=== PATIENT | female | born 1980 | race Caucasian/White ===

== ENCOUNTER 2016-05-17 18:39 | Emergency (ER) | payer OTHER ==
[~2016-05-17 18:39] MED LIST: /DIVA12TA OR; FLEXERIL PO; KLON0.5T OR; LAMI25TA OR; VICO5TAB OR; ZOLO100T OR
--- NOTE | 2016-05-17 19:48 | EDDOCDS ---
Nurse's Notes [facility] Name: Shelly Pérez Age: 35 yrs Sex: Female : 1980 Arrival Date: 05/17/2016 Time: 18:39 Bed TR7 Private MD: Gaudencio Collier Diagnosis: Medical services not available in home-medication refill Presentation: 05/17 18:48 Presenting complaint: Patient states: Had appt with Dr. Collier. got cancelled he is out rs3 of town. they asked her to go to ER. Needs Effexor 150 mg bid, Xanax 2 mg tid, Vicodin 5/325 tid. Adult Sepsis Screening: The patient does not have new or worsening altered mentation. Patient's respiratory rate is less than 22. Systolic blood pressure is greater than 100. Patient has a qSOFA score of 0- Negative Sepsis Screen. Suicide/Homicide risk assessment- the patient denies having any suicidal and/or homicidal ideations and does not present with any other emotional, behavioral or mental health complaints. 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 Transition of care: patient was not received from another setting of care. 18:48 Acuity: URSULA Level 5 rs3 18:48 Method Of Arrival: Walkin/Carried/Asstd rs3 Triage Assessment: 18:53 General: Appears in no apparent distress. Pain: Location: back. 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 effexor 150mg twice a day 2. vicodin 5/325mg three times a day 3. Xanax 2 mg oral tab 3 times per day - PMHx: Depression; - PSHx: Tubal ligation; - Social history: Smoking status: Patient uses tobacco products, heavy tobacco smoker. No barriers to communication noted, The patient speaks fluent Slovak. - Family history: Not pertinent. - : The pt / caregiver states he / she is not on anticoagulants. Home medication list is obtained from the patient. - Exposure Risk Screening:: None identified. Screenin:45 Screening information is obtained from the patient. Fall risk: No risks identified. jo3 Assistance ADL's: requires no assistance with activities of daily living. Abuse/DV Screen: The patient / caregiver reports he/she is: not in a situation that causes fear, pain or injury. Nutritional screening: No deficits noted. Advance Directives: There is no active DNR order. home support is adequate. Assessment: 19:45 General: Appears in no apparent distress, Behavior is anxious, cooperative, pleasant. jo3 Neurological: No deficits noted. Cardiovascular: No deficits noted. Respiratory: Airway is patent Respiratory effort is even, unlabored. Derm: Skin is Skin is pink, warm & dry. Vital Signs: 18:42 BP 143 / 88; Pulse 119; Resp 16; Temp 97.5(O); Pulse Ox 98% on R/A; Weight 70.76 kg lr2 (R); Height 5 ft. 9 in. (175.26 cm) (R); Pain 6/10; 18:42 Body Mass Index 23.04 (70.76 kg, 175.26 cm) lr2 Vitals: 18:42 Log In Time: May 17, 2016 at 18:39. lr2 ED Course: 18:41 Patient visited by Dorys Cazares. lr2 18:41 Patient moved to Waiting lr2 18:42 Gaudencio Collier is Private Physician. lr2 18:42 Patient moved to Pre RCE lr2 18:51 Triage Initiated rs3 19:16 Patient moved to Triage 1 mdr 19:24 [facility] ke 19:24 Patient visited by Anmol Abdi FNP. ke 19:24 Patient visited by Anmol Abdi FNP. ke 19:35 Gaudencio Collier is Referral Physician. ke 19:45 The patient / caregiver is instructed regarding the plan of care and ED course. jo3 19:45 No IV's were initiated during this patient's visit. No procedures done that require jo3 assistance. 19:46 Patient moved to TR7 mdr Order Results: There are currently no results for this order. Outcome: 19:36 Discharge ordered by Provider. ke 19:45 Discharge Assessment: Patient awake, alert and oriented x 3. No cognitive and/or jo3 functional deficits noted. Patient verbalized understanding of disposition instructions. patient administered narcotics - no. The following High Risk Discharge criteria are identified: None. Discharged to home ambulatory, with friend. Condition: stable. Discharge instructions given to patient, Instructed on discharge instructions, follow up and referral plans. medication usage, Demonstrated understanding of instructions, medications, Pt was receptive of discharge instructions/ teaching. Prescriptions given X 3. No special radiology studies were completed. Property sent home with patient. 19:47 Patient left the ED. jo3 Signatures: Anmol Abdi, ENAMEL DIPPER ENAMEL DIPPER Lakisha StockRN RN jo3 Marly KumarRN RN rs3 Ulysses Spencer, MICHAEL VB NET DEVELOPER Dorys Srivastava lr2 Corrections: (The following items were deleted from the chart) 18:53 18:48 Presenting complaint: Patient states: Had appt with Dr. Collier. got cancelled he is rs3 out of town. they asked her to go to ER. Needs Effexor 150 mg bid, Xanax 0.25 tid, Vicodin 5/325 tid rs3 MTDD
--- NOTE | 2016-05-17 19:48 | EDDOCDS ---
Physician Documentation [facility] Name: Shelly Pérez Age: 35 yrs Sex: Female : 1980 Arrival Date: 05/17/2016 Time: 18:39 Bed TR7 Private MD: Gaudencio Collier Disposition: 05/17/16 19:36 Discharged to Home/Self Care. Impression: Medical services not available in home - medication refill. - Condition is Stable. - Discharge Instructions: Medicine Refill at the Emergency Department. - Prescriptions for Xanax 2 mg Oral tablet - take 1 tablet by ORAL route 3 times per day; 15 tablet. [place] 5- 325 mg Oral Tablet - take 1 tablet by ORAL route 3 times per day As needed MDD: 4 tabs; 15 tablet. venlafaxine 75 mg Oral Tablet - take 2 tablet by ORAL route 2 times per day with food; 20 tablet. - Medication Reconciliation, Local Pharmacy Hours form. - Follow up: Gaudencio Collier; When: 4 - 5 days; Reason: Continuance of care. - Problem is an acute exacerbation. - Symptoms are unchanged. Historical: - Allergies: no known allergies; - Home Meds: 1. effexor 150mg twice a day 2. vicodin 5/325mg three times a day 3. Xanax 2 mg oral tab 3 times per day - PMHx: Depression; - PSHx: Tubal ligation; - Social history: Smoking status: Patient uses tobacco products, heavy tobacco smoker. No barriers to communication noted, The patient speaks fluent Argentine. - Family history: Not pertinent. - : The pt / caregiver states he / she is not on anticoagulants. Home medication list is obtained from the patient. - Exposure Risk Screening:: None identified. 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 9 in. (175.26 cm) (R); Pain 6/10; 18:42 Body Mass Index 23.04 (70.76 kg, 175.26 cm) lr2 Signatures: Anmol Abdi, OUTREACH COUNSELOR OUTREACH COUNSELOR Lakisha Stock,RN RN jo3 Marly Kumar,RN RN rs3 MTDD
--- NOTE | 2016-05-19 20:48 | EDDOCDS ---
Nurse's Notes [facility] Name: Shelly Pérez Age: 35 yrs Sex: Female : 1980 Arrival Date: 05/17/2016 Time: 18:39 Bed TR7 Private MD: Gaudencio Collier Diagnosis: Medical services not available in home-medication refill Presentation: 05/17 18:48 Presenting complaint: Patient states: Had appt with Dr. Collier. got cancelled he is out rs3 of town. they asked her to go to ER. Needs Effexor 150 mg bid, Xanax 2 mg tid, Vicodin 5/325 tid. Adult Sepsis Screening: The patient does not have new or worsening altered mentation. Patient's respiratory rate is less than 22. Systolic blood pressure is greater than 100. Patient has a qSOFA score of 0- Negative Sepsis Screen. Suicide/Homicide risk assessment- the patient denies having any suicidal and/or homicidal ideations and does not present with any other emotional, behavioral or mental health complaints. Status: Patient is not a manager of environmental services or dependent. Transition of care: patient was not received from another setting of care. 18:48 Acuity: URSULA Level 5 rs3 18:48 Method Of Arrival: Walkin/Carried/Asstd rs3 Triage Assessment: 18:53 General: Appears in no apparent distress. Pain: Location: back. 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 effexor 150mg twice a day 2. vicodin 5/325mg three times a day 3. Xanax 2 mg oral tab 3 times per day - PMHx: Depression; - PSHx: Tubal ligation; - Social history: Smoking status: Patient uses tobacco products, heavy tobacco smoker. No barriers to communication noted, The patient speaks fluent Frisian. - Family history: Not pertinent. - : The pt / caregiver states he / she is not on anticoagulants. Home medication list is obtained from the patient. - Exposure Risk Screening:: None identified. Screenin:45 Screening information is obtained from the patient. Fall risk: No risks identified. jo3 Assistance ADL's: requires no assistance with activities of daily living. Abuse/DV Screen: The patient / caregiver reports he/she is: not in a situation that causes fear, pain or injury. Nutritional screening: No deficits noted. Advance Directives: There is no active DNR order. home support is adequate. Assessment: 19:45 General: Appears in no apparent distress, Behavior is anxious, cooperative, pleasant. jo3 Neurological: No deficits noted. Cardiovascular: No deficits noted. Respiratory: Airway is patent Respiratory effort is even, unlabored. Derm: Skin is Skin is pink, warm & dry. Vital Signs: 18:42 BP 143 / 88; Pulse 119; Resp 16; Temp 97.5(O); Pulse Ox 98% on R/A; Weight 70.76 kg lr2 (R); Height 5 ft. 9 in. (175.26 cm) (R); Pain 6/10; 18:42 Body Mass Index 23.04 (70.76 kg, 175.26 cm) lr2 Vitals: 18:42 Log In Time: May 17, 2016 at 18:39. lr2 ED Course: 18:41 Patient visited by Dorys Cazares. lr2 18:41 Patient moved to Waiting lr2 18:42 Gaudencio Collier is Private Physician. lr2 18:42 Patient moved to Pre RCE lr2 18:51 Triage Initiated rs3 19:16 Patient moved to Triage 1 mdr 19:24 [facility] ke 19:24 Patient visited by Anmol Abdi FNP. ke 19:24 Patient visited by Anmol Abdi FNP. ke 19:35 Gaudencio Collier is Referral Physician. ke 19:45 The patient / caregiver is instructed regarding the plan of care and ED course. jo3 19:45 No IV's were initiated during this patient's visit. No procedures done that require jo3 assistance. 19:46 Patient moved to TR7 mdr 19:50 Patient name changed from Shelly\S\\S\West\S\ to Shelly\S\ \S\West. EDMS 19:51 [facility] Payment Agreement was scanned into [employer] and attached to record. ks16 05/18 12:42 T-Sheet-- Draft Copy was scanned into [employer] and attached to record. gb Order Results: There are currently no results for this order. Outcome: 05/17 19:36 Discharge ordered by Provider. thaddeus 19:45 Discharge Assessment: Patient awake, alert and oriented x 3. No cognitive and/or jo3 functional deficits noted. Patient verbalized understanding of disposition instructions. patient administered narcotics - no. The following High Risk Discharge criteria are identified: None. Discharged to home ambulatory, with friend. Condition: stable. Discharge instructions given to patient, Instructed on discharge instructions, follow up and referral plans. medication usage, Demonstrated understanding of instructions, medications, Pt was receptive of discharge instructions/ teaching. Prescriptions given X 3. No special radiology studies were completed. Property sent home with patient. 19:47 Patient left the ED. jo3 Signatures: Dispatcher [employer] EDMS Sis Tamayo, Reg Reg gb Amnol Abdi, FAGOT HEATER HELPER FAGOT HEATER HELPER Lakisha StockRN RN jo3 Marly KumarRN RN rs3 Ulysses Spencer, CLIENT PARTNER CLIENT PARTNER Yanet Puente, Reg Reg ks16 Dorys Cazares lr2 Corrections: (The following items were deleted from the chart) 18:53 18:48 Presenting complaint: Patient states: Had appt with Dr. Collier. got cancelled he is rs3 out of town. they asked her to go to ER. Needs Effexor 150 mg bid, Xanax 0.25 tid, Vicodin 5/325 tid rs3 Chart Complete MTDD
--- NOTE | 2016-05-19 20:48 | EDDOCDS ---
Physician Documentation [facility] Name: Shelly Pérez Age: 35 yrs Sex: Female : 1980 Arrival Date: 05/17/2016 Time: 18:39 Bed TR7 Private MD: Gaudencio Collier Disposition: 05/17/16 19:36 Discharged to Home/Self Care. Impression: Medical services not available in home - medication refill. - Condition is Stable. - Discharge Instructions: Medicine Refill at the Emergency Department. - Prescriptions for Xanax 2 mg Oral tablet - take 1 tablet by ORAL route 3 times per day; 15 tablet. [place] 5- 325 mg Oral Tablet - take 1 tablet by ORAL route 3 times per day As needed MDD: 4 tabs; 15 tablet. venlafaxine 75 mg Oral Tablet - take 2 tablet by ORAL route 2 times per day with food; 20 tablet. - Medication Reconciliation, Local Pharmacy Hours form. - Follow up: Gaudencio Collier; When: 4 - 5 days; Reason: Continuance of care. - Problem is an acute exacerbation. - Symptoms are unchanged. Historical: - Allergies: no known allergies; - Home Meds: 1. effexor 150mg twice a day 2. vicodin 5/325mg three times a day 3. Xanax 2 mg oral tab 3 times per day - PMHx: Depression; - PSHx: Tubal ligation; - Social history: Smoking status: Patient uses tobacco products, heavy tobacco smoker. No barriers to communication noted, The patient speaks fluent Gibraltarian. - Family history: Not pertinent. - : The pt / caregiver states he / she is not on anticoagulants. Home medication list is obtained from the patient. - Exposure Risk Screening:: None identified. 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 9 in. (175.26 cm) (R); Pain 6/10; 18:42 Body Mass Index 23.04 (70.76 kg, 175.26 cm) lr2 MDM: 19:51 [facility] Payment Agreement was scanned into [employer] and attached to record. ks16 19:51 Financial registration complete. 05/18 12:42 T-Sheet-- Draft Copy was scanned into [employer] and attached to record. gb Signatures: Sis Tamayo, Reg Reg gb Anmol Abdi, CAT AND DOG BATHER CAT AND DOG BATHER Lakisha Stock RN RN jo3 Marly Kumar RN RN rs3 Yanet Woodard, Reg Reg ks16 The chart was reviewed and I authenticate all verbal orders and agree with the evaluation and treatment provided.Attachments: 05/17 19:51 [facility] Payment Agreement 05/18 12:42 T-Sheet-- Draft Copy gb Chart Complete MTDD
--- NOTE | 2016-05-19 20:48 | EDDOCDS ---
Physician Documentation [facility] Name: Shelly Pérez Age: 35 yrs Sex: Female : 1980 Arrival Date: 05/17/2016 Time: 18:39 Bed TR7 Private MD: Gaudencio Collier Disposition: 05/17/16 19:36 Discharged to Home/Self Care. Impression: Medical services not available in home - medication refill. - Condition is Stable. - Discharge Instructions: Medicine Refill at the Emergency Department. - Prescriptions for Xanax 2 mg Oral tablet - take 1 tablet by ORAL route 3 times per day; 15 tablet. [place] 5- 325 mg Oral Tablet - take 1 tablet by ORAL route 3 times per day As needed MDD: 4 tabs; 15 tablet. venlafaxine 75 mg Oral Tablet - take 2 tablet by ORAL route 2 times per day with food; 20 tablet. - Medication Reconciliation, Local Pharmacy Hours form. - Follow up: Gaudencio Collier; When: 4 - 5 days; Reason: Continuance of care. - Problem is an acute exacerbation. - Symptoms are unchanged. Historical: - Allergies: no known allergies; - Home Meds: 1. effexor 150mg twice a day 2. vicodin 5/325mg three times a day 3. Xanax 2 mg oral tab 3 times per day - PMHx: Depression; - PSHx: Tubal ligation; - Social history: Smoking status: Patient uses tobacco products, heavy tobacco smoker. No barriers to communication noted, The patient speaks fluent Niuean. - Family history: Not pertinent. - : The pt / caregiver states he / she is not on anticoagulants. Home medication list is obtained from the patient. - Exposure Risk Screening:: None identified. 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 9 in. (175.26 cm) (R); Pain 6/10; 18:42 Body Mass Index 23.04 (70.76 kg, 175.26 cm) lr2 MDM: 19:51 [facility] Payment Agreement was scanned into [email or web address] and attached to record. ks16 19:51 Financial registration complete. 05/18 12:42 T-Sheet-- Draft Copy was scanned into [email or web address] and attached to record. gb Signatures: Sis Tamayo, Reg Reg gb Anmol Abdi, VEGETABLE II FARMWORKER VEGETABLE II FARMWORKER Lakisha Stock RN RN jo3 Marly Kumar RN RN rs3 Yanet Woodard, Reg Reg ks16 The chart was reviewed and I authenticate all verbal orders and agree with the evaluation and treatment provided.Attachments: 05/17 19:51 [facility] Payment Agreement 05/18 12:42 T-Sheet-- Draft Copy gb Chart Complete MTDD
== END 2016-05-17 19:47 | disposition home or self-care (01) ==
LOC: M ED 18:39
DX: Z76.0 Encounter for issue of repeat prescription (principal); F32.9 Major depressive disorder, single episode, unspecified; F17.210 Nicotine dependence, cigarettes, uncomplicated; Z79.899 Other long term (current) drug therapy

== ENCOUNTER 2016-08-04 21:19 | Emergency (ER) | payer OTHER ==
[~2016-08-04] VITALS: Ht 175.3 cm; Wt 90.7 kg
[2016-08-04 21:20] VITALS: BP 159/95
[2016-08-04] MEDS ORDERED: XANA2TAB2 PO ×2 (21:36→23:11)
[2016-08-04] MEDS ORDERED: EFFE150C PO (21:36)
[2016-08-04] MEDS ORDERED: LORazepam 2 MG/ML VIAL (J2060) IM STA (23:08)
[2016-08-04] MEDS ORDERED: ZOFR4TAB3 PO (23:11)
[2016-08-04] MEDS ORDERED: ONDANSETRON 4 MG ORAL DISINTEGRATING TAB (S0181) PO ONE (23:15)
== END 2016-08-05 00:18 | disposition home or self-care (01) ==
LOC: M ED 22:25
DX: F43.9 Reaction to severe stress, unspecified (principal); F19.239 Other psychoactive substance dependence with withdrawal, unspecified
CPT/HCPCS: 96372; 99281; J2060

== ENCOUNTER 2016-12-26 19:26 | Emergency (ER) | payer OTHER ==
[~2016-12-26] VITALS: Ht 175.3 cm; Wt 95.5 kg
[~2016-12-26 19:26] MED LIST changes: +EFFE150C PO; +XANA2TAB2 PO; +ZOFR4TAB3 PO
[2016-12-26] MEDS ORDERED: TRIA37.53 PO (19:40)
[2016-12-26] MEDS ORDERED: cloNIDine 0.2 MG TAB PO ONE (20:15)
[2016-12-26 20:28] VITALS: BP 114/60
[2016-12-26 20:45] VITALS: BP 112/54
[2016-12-26] MEDS ORDERED: CLONI1TA PO (21:19)
== END 2016-12-26 21:37 | disposition home or self-care (01) ==
LOC: M ED 19:26
DX: F31.9 Bipolar disorder, unspecified (principal); F19.10 Other psychoactive substance abuse, uncomplicated; F17.200 Nicotine dependence, unspecified, uncomplicated; F11.23 Opioid dependence with withdrawal; F10.10 Alcohol abuse, uncomplicated; Z79.899 Other long term (current) drug therapy

== ENCOUNTER → 2016-12-27 | Outpatient (CLI) | payer MEDICAID ==
[~2016-12-27] MED LIST changes: +CLONI1TA PO; +TRIA37.53 PO
== END ==
LOC: M OUTALCOH 07:59
PROVIDERS: ATTEND Psychiatry & Neurology Psychiatry
DX: F11.20 Opioid dependence, uncomplicated (principal)

== ENCOUNTER → 2017-03-14 | Outpatient (CLI) | payer OTHER ==
--- NOTE | 2017-03-14 17:03 | REP ---
MRI brain without contrast: History: Headache and diplopia. . Comparison study: Comparison brain CT study December 11, 2012. Technique: Axial and sagittal imaging planes are utilized for T1 and T2-weighted scans. Sequences include spin-echo, fast spin echo, FLAIR, and diffusion weighted sequences. MRI findings: No bony calvarial lesion is seen. Craniocervical junction and upper cervical cord are normal in appearance. There is no MR evidence of significant paranasal sinus disease. No intraorbital abnormality is seen. There are is a small zone of low T1, high T2 signal intensity in the anterior limb of the internal capsule on the right. This corresponds to an area of low density on CT study from 2013. It is unchanged. It could be a a small lacunar infarct or more likely, dilated perivascular spaces, which is a normal variant. In any event there is no change or progression. The lateral, third, and fourth ventricles are normal in size and position. Rojas-white differentiation pattern is otherwise intact above and below the tentorium. There is no evidence of intracranial hemorrhage. No mass, infarction, extra-axial fluid collection or midline shift is seen. No abnormal white matter lesion is seen. Impression: Tiny old lacunar infarct versus dilated perivascular spaces right basal ganglia unchanged from 2013 CT study. Otherwise negative noncontrast brain MRI study. Signed by Armando Rahman MD 03/14/2017 04:54 P
== END ==
LOC: M RAD 15:57
PROVIDERS: ATTEND Family Medicine
DX: R51 Headache (principal)

== ENCOUNTER 2017-03-23 23:19 | Emergency (ER) | payer OTHER ==
[2017-03-24] MEDS: NS 1,000 ML IV (00:31)
[2017-03-24 00:32] LABS: BASO # 0.1 10^3/uL (0.0-0.2); BASO % 0.6 % (0.0-1.0); EOS # 0.3 10^3/uL (0.0-0.50); EOS % 2.9 % (0.0-3.0); IMMATURE GRANULOCYTE % 0.4 % (0-0); LYMPH # 2.9 10^3/uL (1.5-4.5); LYMPH % 28.8 % (24.0-44.0); MEAN CORPUSCULAR HEMOGLOBIN 31.2 pg (27.0-33.0); MEAN CORPUSCULAR HGB CONC 33.8 g/dl (32.0-36.5); MEAN CORPUSCULAR VOLUME 92.5 fl (80.0-96.0); MONO # 0.7 10^3/uL (0.0-0.8); MONO % 6.6 % (0.0-5.0); NEUTROPHILS # 6.2 10^3/uL (1.8-7.7); NEUTROPHILS % 60.7 % (36.0-66.0); PLATELET COUNT, AUTOMATED 227 10^3/uL (150-450); RED CELL DISTRIBUTION WIDTH 13.3 % (11.5-14.5); WHITE BLOOD COUNT 10.1 10^3/uL (4.0-10.0)
[2017-03-24 01:02] LABS: ALBUMIN 3.1 GM/DL (3.2-5.2); ALBUMIN/GLOBULIN RATIO 0.97 (1.00-1.93); ALKALINE PHOSPHATASE 78 U/L (45-117); ALT/SGPT 22 U/L (12-78); ANION GAP 5 MEQ/L (8-16); AST/SGOT 24 U/L (7-37); BILIRUBIN,TOTAL 0.2 MG/DL (0.2-1.0); BLOOD UREA NITROGEN 6 MG/DL (7-18); CALCIUM LEVEL 8.4 MG/DL (8.5-10.1); CARBON DIOXIDE LEVEL 33 MEQ/L (21-32); CHLORIDE LEVEL 105 MEQ/L (98-107); CREATININE FOR GFR 0.69 MG/DL (0.55-1.02); GLOMERULAR FILTRATION RATE > 60.0 (>60); GLUCOSE, FASTING 86 MG/DL (70-105); POTASSIUM SERUM 3.7 MEQ/L (3.5-5.1); SODIUM LEVEL 143 MEQ/L (136-145); TOTAL PROTEIN 6.3 GM/DL (6.4-8.2)
[2017-03-24] MEDS ORDERED: ISOVUE-370 76% 100ML VIAL (Q9967) As Ordered (01:06)
[2017-03-24] MEDS: KETOROLAC 30 MG/ML VIAL (J1885) IV (01:34)
[2017-03-24] MEDS: hydrOXYzine 50 MG TAB PO (02:07)
== END 2017-03-24 02:13 | disposition home or self-care (01) ==
LOC: M ED 03-24 02:13
DX: M54.5 Low back pain (principal); M54.2 Cervicalgia; G89.29 Other chronic pain; G47.00 Insomnia, unspecified; Z72.0 Tobacco use; Y04.0XXA Assault by unarmed brawl or fight, initial encounter; Y92.099 Unspecified place in other non-institutional residence as the place of occurrence of the external cause; Y93.89 Activity, other specified; Y99.9 Unspecified external cause status
CPT/HCPCS: Q9967

== ENCOUNTER 2017-07-30 17:58 | Emergency (ER) | payer OTHER ==
[2017-07-30 17:22] LABS: HEMATOCRIT 46.6 % (36.0-47.0); HEMOGLOBIN 16.4 g/dl (12.0-15.5); MEAN CORPUSCULAR HEMOGLOBIN 31.2 pg (27.0-33.0); MEAN CORPUSCULAR HGB CONC 35.2 g/dl (32.0-36.5); MEAN CORPUSCULAR VOLUME 88.8 fl (80.0-96.0); PLATELET COUNT, AUTOMATED 276 10^3/uL (150-450); RED BLOOD COUNT 5.25 10^6/uL (4.00-5.40); RED CELL DISTRIBUTION WIDTH 12.3 % (11.5-14.5); WHITE BLOOD COUNT 15.6 10^3/uL (4.0-10.0)
[2017-07-30 17:38] LABS: CONTROL LINE HCG INT CTR LINE PRESENT; HCG, SERUM QUALITATIVE NEGATIVE (NEGATIVE)
[2017-07-30 17:43] LABS: AMPHETAMINES LEVEL URINE NEGATIVE (NEGATIVE); BARBITURATES URINE NEGATIVE (NEGATIVE); BENZODIAZEPINES URINE POSITIVE (NEGATIVE); CANNABINOIDS URINE NEGATIVE (NEGATIVE); COCAINE METABOLITE URINE NEGATIVE (NEGATIVE); METHADONE URINE NEGATIVE (NEGATIVE); OPIATES URINE POSITIVE (NEGATIVE); PHENCYCLIDINE URINE NEGATIVE (NEGATIVE)
[2017-07-30 17:52] LABS: ALT/SGPT 21 U/L (12-78); BILIRUBIN,TOTAL 0.6 MG/DL (0.2-1.0); BLOOD UREA NITROGEN 9 MG/DL (7-18); POTASSIUM SERUM 3.7 MEQ/L (3.5-5.1)
[2017-07-30 17:53] LABS: ALBUMIN 4.2 GM/DL (3.2-5.2); ALBUMIN/GLOBULIN RATIO 0.98 (1.00-1.93); ALKALINE PHOSPHATASE 71 U/L (45-117); ANION GAP 6 MEQ/L (8-16); AST/SGOT 22 U/L (7-37); BILIRUBIN,DIRECT 0.2 MG/DL (0.0-0.2); CALCIUM LEVEL 9.5 MG/DL (8.5-10.1); CARBON DIOXIDE LEVEL 29 MEQ/L (21-32); CHLORIDE LEVEL 106 MEQ/L (98-107); CREATININE FOR GFR 0.94 MG/DL (0.55-1.30); ETHYL ALCOHOL (ETHANOL) 0.004 % (0.000-0.010); GLOMERULAR FILTRATION RATE > 60.0 (>60); GLUCOSE, FASTING 105 MG/DL (70-100); SALICYLATE LEVEL 4.3 MG/DL (5.0-30.0); SODIUM LEVEL 141 MEQ/L (136-145); TOTAL PROTEIN 8.5 GM/DL (6.4-8.2)
[2017-07-30 17:56] LABS: ACETAMINOPHEN LEVEL < 2.0 UG/ML (10.0-30.0)
[2017-07-30] MEDS: ALPRAZolam 0.5 MG TAB PO (18:28)
[2017-07-30] MEDS: ONDANSETRON 4 MG ORAL DISINTEGRATING TAB (Q0162 PER 1MG) PO (18:28)
== END 2017-07-30 19:35 | disposition home or self-care (01) ==
LOC: M ED 17:58
DX: F41.1 Generalized anxiety disorder (principal); F33.9 Major depressive disorder, recurrent, unspecified; Z79.899 Other long term (current) drug therapy; Z88.5 Allergy status to narcotic agent; F17.210 Nicotine dependence, cigarettes, uncomplicated
CPT/HCPCS: Q0162

== ENCOUNTER 2017-10-31 22:51 | Emergency (ER) | payer OTHER ==
[2017-11-01] MEDS: LORazepam 2 MG/ML VIAL (J2060) IV (00:24)
[2017-11-01] MEDS: ONDANSETRON 4MG/2ML VIAL (J2405) IV (00:30)
[2017-11-01] MEDS: cloNIDine 0.1 MG TAB PO (00:30)
[2017-11-01] MEDS: NS 1,000 ML IV (00:30)
[2017-11-01 00:56] LABS: BASO # 0.1 10^3/uL (0.0-0.2); BASO % 0.4 % (0.0-1.0); EOS # 0.1 10^3/uL (0.0-0.50); EOS % 0.4 % (0.0-3.0); HEMATOCRIT 49.5 % (36.0-47.0); HEMOGLOBIN 17.6 g/dl (12.0-15.5); IMMATURE GRANULOCYTE % 0.4 % (0-3.0); LYMPH # 3.5 10^3/uL (1.5-4.5); LYMPH % 18.4 % (24.0-44.0); MEAN CORPUSCULAR HEMOGLOBIN 31.9 pg (27.0-33.0); MEAN CORPUSCULAR HGB CONC 35.6 g/dl (32.0-36.5); MEAN CORPUSCULAR VOLUME 89.7 fl (80.0-96.0); MONO # 0.9 10^3/uL (0.0-0.8); MONO % 4.9 % (0.0-5.0); NEUTROPHILS # 14.4 10^3/uL (1.8-7.7); NEUTROPHILS % 75.5 % (36.0-66.0); PLATELET COUNT, AUTOMATED 286 10^3/uL (150-450); RED BLOOD COUNT 5.52 10^6/uL (4.00-5.40); RED CELL DISTRIBUTION WIDTH 13.4 % (11.5-14.5); WHITE BLOOD COUNT 19.1 10^3/uL (4.0-10.0)
[2017-11-01 01:15] LABS: AMPHETAMINES LEVEL URINE NEGATIVE (NEGATIVE); BARBITURATES URINE NEGATIVE (NEGATIVE); BENZODIAZEPINES URINE POSITIVE (NEGATIVE); CANNABINOIDS URINE POSITIVE (NEGATIVE); COCAINE METABOLITE URINE NEGATIVE (NEGATIVE); METHADONE URINE NEGATIVE (NEGATIVE); OPIATES URINE NEGATIVE (NEGATIVE); PHENCYCLIDINE URINE NEGATIVE (NEGATIVE)
[2017-11-01 01:51] LABS: ALBUMIN 3.9 GM/DL (3.2-5.2); ALBUMIN/GLOBULIN RATIO 0.95 (1.00-1.93); ALKALINE PHOSPHATASE 73 U/L (45-117); ALT/SGPT 18 U/L (12-78); ANION GAP 9 MEQ/L (8-16); AST/SGOT 13 U/L (7-37); BILIRUBIN,DIRECT 0.2 MG/DL (0.0-0.2); BILIRUBIN,TOTAL 0.7 MG/DL (0.2-1.0); BLOOD UREA NITROGEN 7 MG/DL (7-18); CALCIUM LEVEL 9.1 MG/DL (8.5-10.1); CARBON DIOXIDE LEVEL 28 MEQ/L (21-32); CHLORIDE LEVEL 105 MEQ/L (98-107); CREATININE FOR GFR 0.83 MG/DL (0.55-1.30); GLOMERULAR FILTRATION RATE > 60.0 (>60); GLUCOSE, FASTING 107 MG/DL (70-100); LIPASE 64 U/L (73-393); POTASSIUM SERUM 3.3 MEQ/L (3.5-5.1); SODIUM LEVEL 142 MEQ/L (136-145)
== END 2017-11-01 03:06 | disposition home or self-care (01) ==
LOC: M ED 22:51
DX: F13.239 Sedative, hypnotic or anxiolytic dependence with withdrawal, unspecified (principal); F11.23 Opioid dependence with withdrawal; F41.1 Generalized anxiety disorder; G89.29 Other chronic pain; Z72.0 Tobacco use; Z79.899 Other long term (current) drug therapy; Z88.5 Allergy status to narcotic agent
CPT/HCPCS: J2405

== ENCOUNTER 2017-12-19 16:30 | Emergency (ER) | payer OTHER, MEDICAID ==
[2017-12-19 18:15] LABS: BASO % 0.4 % (0.0-1.0); EOS % 0.1 % (0.0-3.0); HEMATOCRIT 48.2 % (36.0-47.0); HEMOGLOBIN 16.6 g/dl (12.0-15.5); IMMATURE GRANULOCYTE % 0.4 % (0-3.0); LYMPH # 1.7 10^3/uL (1.5-4.5); LYMPH % 16.3 % (24.0-44.0); MEAN CORPUSCULAR HGB CONC 34.4 g/dl (32.0-36.5); MEAN CORPUSCULAR VOLUME 89.9 fl (80.0-96.0); MONO # 0.5 10^3/uL (0.0-0.8); NEUTROPHILS # 7.9 10^3/uL (1.8-7.7); NEUTROPHILS % 77.8 % (36.0-66.0); PLATELET COUNT, AUTOMATED 221 10^3/uL (150-450); RED BLOOD COUNT 5.36 10^6/uL (4.00-5.40); RED CELL DISTRIBUTION WIDTH 12.5 % (11.5-14.5); WHITE BLOOD COUNT 10.2 10^3/uL (4.0-10.0)
[2017-12-19 18:37] LABS: CONTROL LINE HCG INT CTR LINE PRESENT; HCG, SERUM QUALITATIVE NEGATIVE (NEGATIVE)
[2017-12-19 18:51] LABS: KETONE, URINE AUTO RFX TRACE mg/dL (NEGATIVE); NITRITE, URINE AUTO RFX NEGATIVE (NEGATIVE); RBC, URINE AUTO RFX 2 /HPF (0-3); SPECIFIC GRAVITY UR AUTO RFX 1.011 (1.002-1.035); SQUAM EPITHELIAL CELL UR AURFX 13 /HPF (0-6); WBC, URINE AUTO RFX 6 /HPF (0-3)
[2017-12-19] MEDS: NS 1,000 ML IV (19:18)
[2017-12-19] MEDS: ONDANSETRON 4MG/2ML VIAL (J2405) IV (19:18)
[2017-12-19 19:21] LABS: ALBUMIN 4.4 GM/DL (3.2-5.2); ALBUMIN/GLOBULIN RATIO 1.02 (1.00-1.93); ALKALINE PHOSPHATASE 71 U/L (45-117); ALT/SGPT 20 U/L (12-78); ANION GAP 10 MEQ/L (8-16); AST/SGOT 18 U/L (7-37); BILIRUBIN,DIRECT 0.2 MG/DL (0.0-0.2); BILIRUBIN,TOTAL 0.7 MG/DL (0.2-1.0); BLOOD UREA NITROGEN 8 MG/DL (7-18); CALCIUM LEVEL 9.9 MG/DL (8.5-10.1); CARBON DIOXIDE LEVEL 25 MEQ/L (21-32); CHLORIDE LEVEL 106 MEQ/L (98-107); CREATININE FOR GFR 0.79 MG/DL (0.55-1.30); GLOMERULAR FILTRATION RATE > 60.0 (>60); GLUCOSE, FASTING 120 MG/DL (70-100); LIPASE 77 U/L (73-393); POTASSIUM SERUM 3.6 MEQ/L (3.5-5.1); SODIUM LEVEL 141 MEQ/L (136-145); TOTAL PROTEIN 8.7 GM/DL (6.4-8.2)
[2017-12-19 19:22] LABS: LEUKOCYTE ESTERASE UR AUTO RFX 1+ (NEGATIVE)
[2017-12-19] MEDS: hydrOXYzine 50 MG TAB PO (19:45)
[2017-12-19 21:28] LABS: AMPHETAMINES LEVEL URINE NEGATIVE (NEGATIVE); BARBITURATES URINE NEGATIVE (NEGATIVE); BENZODIAZEPINES URINE NEGATIVE (NEGATIVE); CANNABINOIDS URINE NEGATIVE (NEGATIVE); COCAINE METABOLITE URINE NEGATIVE (NEGATIVE); METHADONE URINE NEGATIVE (NEGATIVE); OPIATES URINE NEGATIVE (NEGATIVE); PHENCYCLIDINE URINE NEGATIVE (NEGATIVE)
== END 2017-12-19 22:18 | disposition home or self-care (01) ==
LOC: M ED 16:30
DX: N39.0 Urinary tract infection, site not specified (principal); R11.2 Nausea with vomiting, unspecified; R19.7 Diarrhea, unspecified; F41.9 Anxiety disorder, unspecified; I10 Essential (primary) hypertension; R56.9 Unspecified convulsions; F19.10 Other psychoactive substance abuse, uncomplicated; F32.9 Major depressive disorder, single episode, unspecified; Z86.73 Personal history of transient ischemic attack (TIA), and cerebral infarction without residual deficits; Z88.5 Allergy status to narcotic agent; F17.210 Nicotine dependence, cigarettes, uncomplicated
CPT/HCPCS: J2405

== ENCOUNTER 2018-01-06 15:13 | Inpatient (IN) | payer MEDICAID, OTHER ==
[2018-01-06 15:55] LABS: HEMOGLOBIN 13.4 g/dl (12.0-15.5); MEAN CORPUSCULAR HEMOGLOBIN 31.5 pg (27.0-33.0); MEAN CORPUSCULAR HGB CONC 33.5 g/dl (32.0-36.5); MEAN CORPUSCULAR VOLUME 94.1 fl (80.0-96.0); PLATELET COUNT, AUTOMATED 203 10^3/uL (150-450); RED BLOOD COUNT 4.25 10^6/uL (4.00-5.40); RED CELL DISTRIBUTION WIDTH 13.1 % (11.5-14.5); WHITE BLOOD COUNT 8.4 10^3/uL (4.0-10.0)
[2018-01-06 16:15] LABS: AMPHETAMINES LEVEL URINE NEGATIVE (NEGATIVE); BARBITURATES URINE NEGATIVE (NEGATIVE); BENZODIAZEPINES URINE POSITIVE (NEGATIVE); CANNABINOIDS URINE NEGATIVE (NEGATIVE); COCAINE METABOLITE URINE NEGATIVE (NEGATIVE); METHADONE URINE NEGATIVE (NEGATIVE); OPIATES URINE NEGATIVE (NEGATIVE); PHENCYCLIDINE URINE NEGATIVE (NEGATIVE)
[2018-01-06 16:24] LABS: CONTROL LINE HCG INT CTR LINE PRESENT; HCG, SERUM QUALITATIVE NEGATIVE (NEGATIVE)
[2018-01-06 16:29] LABS: ACETAMINOPHEN LEVEL < 2.0 UG/ML (10.0-30.0); ALBUMIN 3.5 GM/DL (3.2-5.2); ALBUMIN/GLOBULIN RATIO 1.06 (1.00-1.93); ALKALINE PHOSPHATASE 97 U/L (45-117); ALT/SGPT 26 U/L (12-78); ANION GAP 8 MEQ/L (8-16); AST/SGOT 25 U/L (7-37); BILIRUBIN,DIRECT < 0.1 MG/DL (0.0-0.2); BILIRUBIN,TOTAL 0.2 MG/DL (0.2-1.0); BLOOD UREA NITROGEN 9 MG/DL (7-18); CALCIUM LEVEL 8.4 MG/DL (8.5-10.1); CARBON DIOXIDE LEVEL 28 MEQ/L (21-32); CHLORIDE LEVEL 108 MEQ/L (98-107); ETHYL ALCOHOL (ETHANOL) < 0.003 % (0.000-0.010); GLOMERULAR FILTRATION RATE > 60.0 (>60); GLUCOSE, FASTING 108 MG/DL (70-100); POTASSIUM SERUM 3.4 MEQ/L (3.5-5.1); SALICYLATE LEVEL 3.5 MG/DL (5.0-30.0); SODIUM LEVEL 144 MEQ/L (136-145); TOTAL PROTEIN 6.8 GM/DL (6.4-8.2)
[2018-01-06] MEDS: NICOTINE 21MG/24HR 1 EA TRANSDERMAL TD (17:00)
[2018-01-06] MEDS ORDERED: MOM 30ML SUSPENSION UDC PO (19:00)
[2018-01-06] MEDS: traZODone 50 MG TAB PO (23:23)
[2018-01-07] MEDS ORDERED: IBUPROFEN 600 MG TAB PO (10:00)
[2018-01-07] MEDS: LIDOCAINE 5% (LIDODERM) PATCH TD (10:23)
[2018-01-07] MEDS: BUPRENORPHINE/NALOXONE 8-2MG SUBLINGUAL TABLET(SUBOXONE) SL ×2 (12:24→20:36)
[2018-01-07] MEDS: FLUoxetine 10 MG CAP PO (12:24)
[2018-01-07] MEDS: AMOXICILLIN 500 MG CAP PO ×2 (13:37→21:34)
[2018-01-07] MEDS: ONDANSETRON 4 MG ORAL DISINTEGRATING TAB (Q0162 PER 1MG) SL (18:58)
[2018-01-07] MEDS: QUEtiapine FUMARATE 50 MG TAB PO (20:36)
[2018-01-07] MEDS: **NOTE PATIENT COMMENT** MISC XX (20:37)
[2018-01-08] MEDS: AMOXICILLIN 500 MG CAP PO ×3 (06:00→20:18)
[2018-01-08 08:08] LABS: ANION GAP 6 MEQ/L (8-16); BLOOD UREA NITROGEN 6 MG/DL (7-18); CALCIUM LEVEL 8.6 MG/DL (8.5-10.1); CARBON DIOXIDE LEVEL 28 MEQ/L (21-32); CHLORIDE LEVEL 109 MEQ/L (98-107); CREATININE FOR GFR 0.69 MG/DL (0.55-1.30); GLOMERULAR FILTRATION RATE > 60.0 (>60); GLUCOSE, FASTING 141 MG/DL (70-100); POTASSIUM SERUM 4.4 MEQ/L (3.5-5.1); SODIUM LEVEL 143 MEQ/L (136-145)
[2018-01-08] MEDS: FLUoxetine 10 MG CAP PO (08:39)
[2018-01-08] MEDS: BUPRENORPHINE/NALOXONE 8-2MG SUBLINGUAL TABLET(SUBOXONE) SL ×2 (08:39→20:21)
[2018-01-08] MEDS: LIDOCAINE 5% (LIDODERM) PATCH TD (08:40)
[2018-01-08] MEDS: NICOTINE 21MG/24HR 1 EA TRANSDERMAL TD (10:06)
[2018-01-08] MEDS: **NOTE PATIENT COMMENT** MISC XX (20:17)
[2018-01-08] MEDS: traZODone 50 MG TAB PO (20:20)
[2018-01-08] MEDS: QUEtiapine FUMARATE 100 MG TAB PO (20:20)
[2018-01-09] MEDS: AMOXICILLIN 500 MG CAP PO ×3 (06:00→21:11)
[2018-01-09] MEDS: BUPRENORPHINE/NALOXONE 8-2MG SUBLINGUAL TABLET(SUBOXONE) SL ×2 (08:06→15:59)
[2018-01-09] MEDS: NICOTINE 21MG/24HR 1 EA TRANSDERMAL TD (08:06)
[2018-01-09] MEDS: FLUoxetine 10 MG CAP PO ×2 (08:06→09:55)
[2018-01-09] MEDS: LIDOCAINE 5% (LIDODERM) PATCH TD (08:07)
[2018-01-09] MEDS ORDERED: FLUoxetine 20 MG CAP PO (09:00)
[2018-01-09] MEDS: MAALOX 30 ML SUSP *UDC PO (13:13)
[2018-01-09] MEDS: ONDANSETRON 4 MG ORAL DISINTEGRATING TAB (Q0162 PER 1MG) PO (18:13)
[2018-01-09] MEDS: QUEtiapine FUMARATE 100 MG TAB PO (20:22)
[2018-01-09] MEDS: traZODone 50 MG TAB PO (20:22)
[2018-01-09] MEDS: ACETAMINOPHEN TAB 650MG DOSE (2X325MG) PO (20:25)
[2018-01-09] MEDS: **NOTE PATIENT COMMENT** MISC XX (21:30)
[2018-01-10] MEDS: AMOXICILLIN 500 MG CAP PO (05:53)
[2018-01-10] MEDS: LIDOCAINE 5% (LIDODERM) PATCH TD (08:05)
[2018-01-10] MEDS: BUPRENORPHINE/NALOXONE 8-2MG SUBLINGUAL TABLET(SUBOXONE) SL (08:06)
[2018-01-10] MEDS: FLUoxetine 20 MG CAP PO (08:06)
[2018-01-10] MEDS: NICOTINE 21MG/24HR 1 EA TRANSDERMAL TD (08:06)
== END 2018-01-10 10:05 | disposition home or self-care (01) | DRG 751 ==
LOC: M ED 15:13 → M ED INP 18:53 → M PSY 22:03
DX: F33.9 Major depressive disorder, recurrent, unspecified (principal); E87.6 Hypokalemia; F41.1 Generalized anxiety disorder; F42.9 Obsessive-compulsive disorder, unspecified; F11.90 Opioid use, unspecified, uncomplicated; F41.0 Panic disorder [episodic paroxysmal anxiety]; Z59.8 Other problems related to housing and economic circumstances; M54.5 Low back pain; F17.200 Nicotine dependence, unspecified, uncomplicated; Z79.899 Other long term (current) drug therapy; Z88.5 Allergy status to narcotic agent

== ENCOUNTER 2018-01-22 11:31 | Emergency (ER) | payer OTHER, MEDICAID ==
[2018-01-22 12:12] LABS: HEMATOCRIT 36.3 % (36.0-47.0); HEMOGLOBIN 12.2 g/dl (12.0-15.5); MEAN CORPUSCULAR HEMOGLOBIN 30.8 pg (27.0-33.0); MEAN CORPUSCULAR HGB CONC 33.6 g/dl (32.0-36.5); MEAN CORPUSCULAR VOLUME 91.7 fl (80.0-96.0); PLATELET COUNT, AUTOMATED 214 10^3/uL (150-450); RED BLOOD COUNT 3.96 10^6/uL (4.00-5.40); RED CELL DISTRIBUTION WIDTH 12.6 % (11.5-14.5); WHITE BLOOD COUNT 8.2 10^3/uL (4.0-10.0)
[2018-01-22 12:33] LABS: PROTHROMBIN TIME 13.3 SECONDS (12.1-14.4)
[2018-01-22 12:52] LABS: ALBUMIN 3.1 GM/DL (3.2-5.2); ALKALINE PHOSPHATASE 90 U/L (45-117); ALT/SGPT 25 U/L (12-78); ANION GAP 6 MEQ/L (8-16); AST/SGOT 23 U/L (7-37); BILIRUBIN,DIRECT < 0.1 MG/DL (0.0-0.2); BILIRUBIN,TOTAL 0.2 MG/DL (0.2-1.0); BLOOD UREA NITROGEN 8 MG/DL (7-18); CALCIUM LEVEL 8.3 MG/DL (8.5-10.1); CARBON DIOXIDE LEVEL 30 MEQ/L (21-32); CHLORIDE LEVEL 108 MEQ/L (98-107); CREATININE FOR GFR 0.78 MG/DL (0.55-1.30); GLOMERULAR FILTRATION RATE > 60.0 (>60); GLUCOSE, FASTING 92 MG/DL (70-100); NT-PRO BNP 283 PG/ML (<125); POTASSIUM SERUM 4.2 MEQ/L (3.5-5.1); SODIUM LEVEL 144 MEQ/L (136-145); TOTAL PROTEIN 6.2 GM/DL (6.4-8.2)
[2018-01-22 14:37] LABS: D-DIMER QUANT 381.2 ng/ml (<500)
== END 2018-01-22 14:49 | disposition home or self-care (01) ==
LOC: M ED 11:31
DX: R60.0 Localized edema (principal); I45.19 Other right bundle-branch block; R56.9 Unspecified convulsions; Z86.73 Personal history of transient ischemic attack (TIA), and cerebral infarction without residual deficits; K21.9 Gastro-esophageal reflux disease without esophagitis; F41.9 Anxiety disorder, unspecified; F32.9 Major depressive disorder, single episode, unspecified; F19.10 Other psychoactive substance abuse, uncomplicated; Z72.0 Tobacco use; Z79.899 Other long term (current) drug therapy; Z88.5 Allergy status to narcotic agent
CPT/HCPCS: 71046

== ENCOUNTER → 2018-02-28 | Outpatient (REF) | payer OTHER ==
[2018-02-28 12:31] LABS: CONTROL LINE HCG INT CTR LINE PRESENT; HCG, SERUM QUALITATIVE NEGATIVE (NEGATIVE)
[2018-02-28 12:32] LABS: BASO # 0.1 10^3/uL (0.0-0.2); BASO % 0.5 % (0.0-1.0); EOS # 0.2 10^3/uL (0.0-0.50); EOS % 1.9 % (0.0-3.0); HEMATOCRIT 47.4 % (36.0-47.0); HEMOGLOBIN 15.5 g/dl (12.0-15.5); IMMATURE GRANULOCYTE % 0.3 % (0-3.0); LYMPH # 2.9 10^3/uL (1.5-4.5); LYMPH % 26.6 % (24.0-44.0); MEAN CORPUSCULAR HEMOGLOBIN 29.8 pg (27.0-33.0); MEAN CORPUSCULAR HGB CONC 32.7 g/dl (32.0-36.5); MEAN CORPUSCULAR VOLUME 91.2 fl (80.0-96.0); MONO # 0.7 10^3/uL (0.0-0.8); MONO % 6.3 % (0.0-5.0); NEUTROPHILS % 64.4 % (36.0-66.0); PLATELET COUNT, AUTOMATED 219 10^3/uL (150-450); RED CELL DISTRIBUTION WIDTH 12.9 % (11.5-14.5); WHITE BLOOD COUNT 10.8 10^3/uL (4.0-10.0)
[2018-02-28 12:35] LABS: ALBUMIN 4.1 GM/DL (3.2-5.2); ALBUMIN/GLOBULIN RATIO 1.21 (1.00-1.93); ALKALINE PHOSPHATASE 84 U/L (45-117); ALT/SGPT 22 U/L (12-78); ANION GAP 7 MEQ/L (8-16); AST/SGOT 13 U/L (7-37); BILIRUBIN,TOTAL 0.4 MG/DL (0.2-1.0); BLOOD UREA NITROGEN 9 MG/DL (7-18); CALCIUM LEVEL 9.1 MG/DL (8.5-10.1); CARBON DIOXIDE LEVEL 29 MEQ/L (21-32); CHLORIDE LEVEL 104 MEQ/L (98-107); GLOMERULAR FILTRATION RATE > 60.0 (>60); GLUCOSE, FASTING 109 MG/DL (70-100); NT-PRO BNP 14 PG/ML (<125); SODIUM LEVEL 140 MEQ/L (136-145); TOTAL PROTEIN 7.5 GM/DL (6.4-8.2)
== END ==
LOC: M SFHCPLAZ 10:16
DX: R11.0 Nausea (principal); I50.21 Acute systolic (congestive) heart failure
CPT/HCPCS: 80053

== ENCOUNTER → 2018-04-16 | Outpatient (REF) | payer OTHER ==
[~2018-04-16] MED LIST changes: +AMOX500C PO; +BACT800T5 PO; -EFFE150C PO; +EFFE150C2 PO; +FAMO40TA3; +FLUO20CA19 PO; +GABA-843; +GABA-843 PO; +HYDR50TA70 PO; +IBUP80TA; +IBUP80TA PO; +OLAN5TAB PO; +OXAZ10CA3 PO; +OXYC-517; +QUET1TAB8 PO; +SUBO8MIS SL; +TRAZO50TA PO; +TRIAMT/HCTZ; +XANA0.5T PO; +ZANA4TAB PO; +ZOFR4TAB14 PO; -ZOFR4TAB3 PO
[2018-04-16 17:16] LABS: CHLAMYDIA DNA AMPLIFICATION NEGATIVE (NEGATIVE); GC DNA AMPLIFICATION NEGATIVE (NEGATIVE)
[2018-04-19 15:16] LABS: HPV HYBRID CAPTURE II Negative (Negative)
== END ==
LOC: M SFHCWAGY 12:18
PROVIDERS: ATTEND Nurse Practitioner Women's Health
DX: Z12.4 Encounter for screening for malignant neoplasm of cervix (principal); Z11.3 Encounter for screening for infections with a predominantly sexual mode of transmission

== ENCOUNTER 2018-10-07 14:01 | Emergency (ER) | payer MEDICAID, OTHER ==
[~2018-10-07] VITALS: Ht 175.3 cm; Wt 101.8 kg
[~2018-10-07 14:01] MED LIST changes: -/DIVA12TA OR; +DEPA1TAB OR; +TRAZ1TAB10 PO; -TRAZO50TA PO
[2018-10-07] MEDS ORDERED: ZUBS1SUB (14:10)
[2018-10-07] MEDS ORDERED: [UNRECOGNIZED DRUG - CODE] (14:10)
[2018-10-07] MEDS ORDERED: MIRT1TAB15 (14:10)
[2018-10-07] MEDS ORDERED: BACL1TAB9 (14:10)
[2018-10-07] MEDS ORDERED: LATU1TAB (14:10)
[2018-10-07] MEDS ORDERED: ZOLP10TA2 (14:10)
[2018-10-07] MEDS ORDERED: DULO1CAP4 (14:10)
[2018-10-07] MEDS ORDERED: ADDE20TA (14:10)
[2018-10-07] MEDS ORDERED: ALPR1TAB3 (14:10)
[2018-10-07] MEDS ORDERED: BUPR150T3 (14:10)
[2018-10-07] MEDS ORDERED: IPRATROPIUM 0.5MG/ALBUTEROL 2.5MG INH SOL UD 3ML (DUONEB)(J7620) NEB ONE (16:45)
[2018-10-07] MEDS ORDERED: ALPRAZolam 0.5 MG TAB PO ONE (17:00)
[2018-10-07] MEDS ORDERED: ONDANSETRON 4 MG ORAL DISINTEGRATING TAB (Q0162 PER 1MG) PO ONE (17:00)
[2018-10-07 17:15] LABS: HEMATOCRIT 41.4 % (36.0-47.0); HEMOGLOBIN 14.8 g/dl (12.0-15.5); MEAN CORPUSCULAR HEMOGLOBIN 31.2 pg (27.0-33.0); MEAN CORPUSCULAR HGB CONC 35.7 g/dl (32.0-36.5); MEAN CORPUSCULAR VOLUME 87.2 fl (80.0-96.0); PLATELET COUNT, AUTOMATED 283 10^3/uL (150-450); RED BLOOD COUNT 4.75 10^6/uL (4.00-5.40); WHITE BLOOD COUNT 19.2 10^3/uL (4.0-10.0)
[2018-10-07 17:57] LABS: ALBUMIN 4.3 GM/DL (3.2-5.2); ALT/SGPT 19 U/L (12-78); BILIRUBIN,DIRECT 0.2 MG/DL (0.0-0.2); BILIRUBIN,TOTAL 0.6 MG/DL (0.2-1.0); BLOOD UREA NITROGEN 7 MG/DL (7-18); CARBON DIOXIDE LEVEL 28 MEQ/L (21-32); CHLORIDE LEVEL 96 MEQ/L (98-107); CREATININE FOR GFR 0.68 MG/DL (0.55-1.30); GLOMERULAR FILTRATION RATE > 60.0 (>60); GLUCOSE, FASTING 107 MG/DL (70-100); POTASSIUM SERUM 4.1 MEQ/L (3.5-5.1); SALICYLATE LEVEL 2.8 MG/DL (5.0-30.0); SODIUM LEVEL 131 MEQ/L (136-145); TOTAL PROTEIN 8.1 GM/DL (6.4-8.2)
[2018-10-07 17:58] LABS: ETHYL ALCOHOL (ETHANOL) < 0.003 % (0.000-0.010)
[2018-10-07 18:14] LABS: ACETAMINOPHEN LEVEL < 2.0 UG/ML (10.0-30.0)
[2018-10-07 18:15] LABS: HCG, SERUM QUALITATIVE NEGATIVE (NEGATIVE)
[2018-10-07 18:18] LABS: AMPHETAMINES LEVEL URINE NEGATIVE (NEGATIVE); BARBITURATES URINE NEGATIVE (NEGATIVE); BENZODIAZEPINES URINE POSITIVE (NEGATIVE); CANNABINOIDS URINE POSITIVE (NEGATIVE); COCAINE METABOLITE URINE NEGATIVE (NEGATIVE); METHADONE URINE NEGATIVE (NEGATIVE); OPIATES URINE NEGATIVE (NEGATIVE); PHENCYCLIDINE URINE NEGATIVE (NEGATIVE)
--- NOTE | 2018-10-07 19:04 | REP ---
Chest x-ray: Two views. History: Shortness of breath. Comparison study: January 22, 2018. Findings: Incidental note is made of an azygos lobe in the right apex. There is a small hazy opacity in the left perihilar region which may be a developing infiltrate. This is not visible on the lateral radiograph but appears to be a change from the comparison study. No other infiltrate is seen. Pleural angles are sharp. Heart size is normal. Impression: Hazy opacity in the left perihilar region question early pneumonia. Follow-up radiograph suggested. Electronically Signed by Armando Rahman MD 10/07/2018 06:55 P
[2018-10-07 19:21] VITALS: BP 128/61
--- NOTE | 2018-10-08 03:38 | ECGEPIP ---
[facility] - ED Test Date: 2018-10-07 Pat Name: TRISTAN CALDWELL Department: Room: - Gender: Female Parts Analyst: hillary : 1980 Requested By: SILVESTRE Zhou Order Number: [id number] Reading MD: Arturo Spears Measurements Intervals [place] Rate: 89 P: 42 MO: 171 QRS: 54 QRSD: 100 T: QT: 355 QTc: 432 Interpretive Statements SINUS RHYTHM MODERATE T-WAVE ABNORMALITY, CONSIDER ANTEROLATERAL ISCHEMIA Electronically Signed on 10-08-2018 3:38:32 EDT by Arturo Spears
--- NOTE | 2018-10-09 13:39 | ED PDOC ---
Post-Departure Follow-Up mandy alaniz faxed formal report of cxr for fu ninag Shantal Figueroa MD Oct 09, 2018 13:39
== END 2018-10-07 19:22 | disposition home or self-care (01) ==
LOC: M ED 14:01
DX: F41.1 Generalized anxiety disorder (principal); I10 Essential (primary) hypertension; R56.9 Unspecified convulsions; F33.9 Major depressive disorder, recurrent, unspecified; Z79.891 Long term (current) use of opiate analgesic; Z79.899 Other long term (current) drug therapy; Z88.5 Allergy status to narcotic agent; F17.210 Nicotine dependence, cigarettes, uncomplicated
CPT/HCPCS: 36415; 71046; 80048; 80076; 80307; 84443; 84703; 85027; 93005; 94640; 99284; G0480; Q0162

== ENCOUNTER → 2018-10-09 | Outpatient (REF) | payer OTHER ==
[~2018-10-09] MED LIST changes: +ADDE20TA; +ALPR1TAB3; +BACL1TAB9; +BUPR150T3; +DULO1CAP4; +LATU1TAB; +MIRT1TAB15; +ZOLP10TA2; +ZUBS1SUB; +[UNRECOGNIZED DRUG - CODE]
[2018-10-09 12:42] LABS: BASO # 0.1 10^3/uL (0.0-0.2); BASO % 0.6 % (0.0-1.0); EOS # 0.2 10^3/uL (0.0-0.50); EOS % 1.8 % (0.0-3.0); HEMATOCRIT 42.5 % (36.0-47.0); HEMOGLOBIN 14.5 g/dl (12.0-15.5); LYMPH # 2.4 10^3/uL (1.5-4.5); LYMPH % 22.2 % (24.0-44.0); MEAN CORPUSCULAR HEMOGLOBIN 31.5 pg (27.0-33.0); MEAN CORPUSCULAR HGB CONC 34.1 g/dl (32.0-36.5); MEAN CORPUSCULAR VOLUME 92.4 fl (80.0-96.0); MONO # 1.1 10^3/uL (0.0-0.8); MONO % 9.7 % (0.0-5.0); NEUTROPHILS # 7.1 10^3/uL (1.8-7.7); NEUTROPHILS % 65.3 % (36.0-66.0); PLATELET COUNT, AUTOMATED 278 10^3/uL (150-450); WHITE BLOOD COUNT 10.8 10^3/uL (4.0-10.0)
[2018-10-09 13:04] LABS: ALBUMIN 4.2 GM/DL (3.2-5.2); ALT/SGPT 18 U/L (12-78); BILIRUBIN,TOTAL 0.4 MG/DL (0.2-1.0); BLOOD UREA NITROGEN 11 MG/DL (7-18); CALCIUM LEVEL 9.3 MG/DL (8.5-10.1); CARBON DIOXIDE LEVEL 28 MEQ/L (21-32); CHLORIDE LEVEL 103 MEQ/L (98-107); CREATININE FOR GFR 0.87 MG/DL (0.55-1.30); FOLLICLE STIMULATING HORMONE 3.1 mIU/mL; FREE T4 1.14 NG/DL (0.76-1.46); GLOMERULAR FILTRATION RATE > 60.0 (>60); GLUCOSE, FASTING 136 MG/DL (70-100); LUTEINIZING HORMONE 0.7 mIU/mL; POTASSIUM SERUM 3.7 MEQ/L (3.5-5.1); SODIUM LEVEL 137 MEQ/L (136-145)
== END ==
LOC: M SFHCPLAZ 10:04
PROVIDERS: ATTEND Physician Assistant Medical
DX: F41.9 Anxiety disorder, unspecified (principal); J18.1 Lobar pneumonia, unspecified organism

== ENCOUNTER → 2018-10-09 | Outpatient (CLI) | payer OTHER ==
--- NOTE | 2018-10-10 01:24 | REP ---
Clinical: Follow-up left lower lobe pneumonia . Comparison: 10/07/2018 . Technique: PA and lateral. Findings: The mediastinum and cardiac silhouette are normal. The lung oropeza are clear and without acute consolidation, effusion, or pneumothorax. The skeletal structures are intact and normal. Impression: 1. No acute cardiopulmonary process. Electronically Signed by Perry Solomon MD 10/10/2018 01:16 A
== END ==
LOC: M WUC 18:56
PROVIDERS: ATTEND Physician Assistant Medical
DX: J18.1 Lobar pneumonia, unspecified organism (principal)

== ENCOUNTER → 2018-11-26 | Outpatient (CLI) | payer OTHER, MEDICAID ==
--- NOTE | 2018-11-26 12:13 | REP ---
Lumbar spine five views: Comparison is 12/11/2012. Vertebral body heights and alignment are normal and unchanged. There is mild disc space narrowing L4-5 and L5 S1 as an interval change indicating degenerative disc disease at these levels. There is no spondylolysis or spondylolisthesis. 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 This is unchanged. The pedicles, facets and sacroiliac articulations are unremarkable. Impression: L4-5 and L5 S1 degenerative disc disease. L4-L5, limbus vertebra as described. Electronically Signed by Alfredo Little MD 11/26/2018 11:29 A
== END ==
LOC: M WUC 09:24
PROVIDERS: ATTEND Physician Assistant Medical
DX: M51.36 Other intervertebral disc degeneration, lumbar region (principal); M51.37 Other intervertebral disc degeneration, lumbosacral region

== ENCOUNTER → 2018-11-29 | Outpatient (CLI) | payer OTHER ==
--- NOTE | 2018-12-02 09:33 | REP ---
MRI LUMBAR SPINE WITHOUT CONTRAST: HISTORY: Lumbago with sciatica, right-sided pain. COMPARISON: Lumbar spine radiographs November [address] lumbar spine April 19, 2014. TECHNIQUE: Sagittal and axial T1- and T2-weighted scans are acquired in the usual fashion with and without fat saturation. Sequences include spin echo, turbo spin echo, and STIR imaging sequences. MRI FINDINGS: Lumbar vertebral body heights are preserved. Alignment is normal. Pedicles and posterior elements are intact. There is no evidence of spondylolysis or spondylolisthesis. The conus medullaris is normal in position and appearance at L1. Axial and sagittal images taken at the L5-S1 disc level demonstrate a broad based right central focal disc protrusion producing mild thecal sac compression. There is ligamentum flavum and mild facet hypertrophy as well. Mild central canal stenosis is present. The AP dimension of the thecal sac in the midline is 6 mm. No neural foraminal encroachment is appreciated. At L4-L5, there is diffuse moderate disc bulging which effaces the ventral margin of the thecal sac. No neural foraminal narrowing is seen. Space narrowing is observed. There is minimal facet hypertrophy and ligamentum flavum hypertrophy. At L3-4, L2-3 and L1-2, there is no significant abnormality. IMPRESSION: Broad-based right central L5-S1 disc protrusion with some thecal sac compression and central canal stenosis. Degenerative disc disease is also present at L4-5 with disc bulging. Facet hypertrophy is present bilaterally at both levels. Electronically Signed by Armando Rahman MD 12/02/2018 09:44 A
== END ==
LOC: M RAD 08:43
PROVIDERS: ATTEND Physician Assistant Medical
DX: M54.41 Lumbago with sciatica, right side (principal)

== ENCOUNTER → 2018-12-12 | Outpatient (CLI) | payer OTHER ==
--- NOTE | 2018-12-12 14:44 | REP ---
Right knee series: Five views. History: Knee effusion. No comparison. Findings: There is fullness in the suprapatellar bursa region on lateral film consistent with a moderate joint effusion. Bones joints and soft tissues are otherwise unremarkable. No fractures seen. Impression: Findings consistent with joint effusion. No acute bony abnormality. Electronically Signed by Armando Rahman MD 12/12/2018 02:35 P
== END ==
LOC: M WUC 14:18
PROVIDERS: ATTEND Physician Assistant Medical
DX: M25.461 Effusion, right knee (principal)

== ENCOUNTER → 2019-06-03 | Outpatient (CLI) | payer OTHER ==
[~2019-06-03] MED LIST changes: -FLUO20CA19 PO; +FLUO20CA22 PO; +QUET100T2 PO; -QUET1TAB8 PO
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
== END ==
LOC: M PAIN 13:00
PROVIDERS: ATTEND Family Medicine
DX: M51.9 Unspecified thoracic, thoracolumbar and lumbosacral intervertebral disc disorder (principal)

== ENCOUNTER 2019-06-09 05:52 | Inpatient (IN) | payer OTHER ==
[~2019-06-09] VITALS: Ht 175.3 cm; Wt 106.4 kg
[2019-06-09 06:23] LABS: BASO # 0.1 10^3/uL (0.0-0.2); BASO % 0.5 % (0.0-1.0); EOS # 0.1 10^3/uL (0.0-0.5); EOS % 0.6 % (0.0-3.0); HEMATOCRIT 46.7 % (36.0-47.0); HEMOGLOBIN 16.2 g/dl (12.0-15.5); LYMPH # 0.8 10^3/uL (1.5-5.0); LYMPH % 6.1 % (24.0-44.0); MEAN CORPUSCULAR HEMOGLOBIN 31.3 pg (27.0-33.0); MEAN CORPUSCULAR HGB CONC 34.7 g/dl (32.0-36.5); MEAN CORPUSCULAR VOLUME 90.3 fl (80.0-96.0); MONO # 1.5 10^3/uL (0.0-0.8); MONO % 10.6 % (0.0-5.0); NEUTROPHILS # 11.2 10^3/uL (1.5-8.5); NEUTROPHILS % 81.7 % (36.0-66.0); PLATELET COUNT, AUTOMATED 172 10^3/uL (150-450); RED BLOOD COUNT 5.17 10^6/uL (4.00-5.40); WHITE BLOOD COUNT 13.7 10^3/uL (4.0-10.0)
[2019-06-09] MEDS ORDERED: CLON-412 PO (06:45)
[2019-06-09] MEDS ORDERED: ONDA-83 PO (06:45)
[2019-06-09] MEDS ORDERED: FURO40TA2 PO (06:45)
[2019-06-09] MEDS ORDERED: BUPR1TAB52 PO (06:45)
[2019-06-09] MEDS ORDERED: TOPI50TA9 PO (06:45)
[2019-06-09] MEDS ORDERED: GABA-845 PO (06:45)
[2019-06-09] MEDS ORDERED: DESV50TA3 PO (06:45)
[2019-06-09] MEDS ORDERED: OLAN5TAB PO (06:45)
[2019-06-09] MEDS ORDERED: DIVA250T67 PO (06:45)
[2019-06-09 06:46] LABS: HCG, SERUM QUALITATIVE NEGATIVE (NEGATIVE)
[2019-06-09 06:47] LABS: ALBUMIN 3.7 GM/DL (3.2-5.2); ALT/SGPT 64 U/L (12-78); BILIRUBIN,DIRECT 0.2 MG/DL (0.0-0.2); BILIRUBIN,TOTAL 0.4 MG/DL (0.2-1.0); BLOOD UREA NITROGEN 17 MG/DL (7-18); CALCIUM LEVEL 8.2 MG/DL (8.5-10.1); CARBON DIOXIDE LEVEL 30 MEQ/L (21-32); CHLORIDE LEVEL 94 MEQ/L (98-107); CK-MB VALUE MASS < 1.0 NG/ML (<3.6); CPK CREATINE PHOSPHOKINASE 74 U/L (26-192); CREATININE FOR GFR 1.09 MG/DL (0.55-1.30); GLOMERULAR FILTRATION RATE > 60.0 (>60); GLUCOSE, FASTING 166 MG/DL (70-100); LIPASE 162 U/L (73-393); MB/CK RELATIVE INDEX 1.35 (< OR =4); POTASSIUM SERUM 2.2 MEQ/L (3.5-5.1); SODIUM LEVEL 134 MEQ/L (136-145); TOTAL PROTEIN 7.5 GM/DL (6.4-8.2); TROPONIN I < 0.02 NG/ML (< 0.10)
[2019-06-09] MEDS ORDERED: NS 1,000 ML IV ONE (08:30)
--- NOTE | 2019-06-09 09:30 | REP ---
Abdominal right upper quadrant ultrasound for biliary colic: There are multiple small gallbladder calculi versus echogenic debris within the gallbladder lumen near the gallbladder neck. There is no gallbladder wall thickening or pericholecystic fluid. There is no intrahepatic biliary duct dilatation. The common biliary duct is mildly dilated measuring up to 8.8 mm. The hepatic parenchyma is heterogeneous compatible with hepato steatosis. There are no hepatic masses. The visualized areas of the pancreas are hyperechoic. This may represent fatty atrophy. Portions of the pancreas are obscured by bowel gas. Right kidney measures 11.8 x 5.2 x 4 point centimeters and is normal size. The renal cortex is hyperechoic. This is compatible with medical renal disease. There is no right renal calculus or hydronephrosis. There is no right renal solid or cystic mass. There is no right upper quadrant free fluid. Possible fatty atrophy of the pancreas. No right upper quadrant free fluid. Right renal cortex hyper echogenicity compatible with medical renal disease. No hydronephrosis. The Impression: Multiple small gallbladder calculi near the gallbladder neck. Mild dilatation of the common biliary duct. No gallbladder wall thickening or pericholecystic fluid to suggest acute cholecystitis by ultrasound. Possible fatty atrophy of the pancreas. Right renal cortex hyper echogenicity compatible with medical renal disease. No right renal calculus, hydronephrosis, cyst or solid mass. Electronically Signed by Alfredo Little MD 06/09/2019 09:21 A
[2019-06-09] MEDS ORDERED: KCL 10MEQ/100ML SWI (KRUN) 10 MEQ in IV 1 EA IV ONE ×2 (09:45→11:00)
[2019-06-09 09:46] LABS: INFLUENZA A AMPLIFICATION NEGATIVE (NEGATIVE); INFLUENZA B AMPLIFICATION NEGATIVE (NEGATIVE)
[2019-06-09] MEDS ORDERED: POTASSIUM CHLORIDE 10 MEQ SR TABLET PO ONE ×2 (14:15→20:30)
[2019-06-09] MEDS: KCL 40MEQ in NS 1000ML 1,000 ML IV SCH (14:21)
[2019-06-09] MEDS ORDERED: IBUP-1022 PO (15:05)
[2019-06-09] MEDS ORDERED: DIVA500T94 PO (15:05)
[2019-06-09] MEDS ORDERED: DULO60CA35 PO (15:05)
[2019-06-09] MEDS ORDERED: REME15TA PO (15:05)
[2019-06-09] MEDS ORDERED: BUPR8SUB SL (15:05)
[2019-06-09] MEDS ORDERED: KETOROLAC 30 MG/ML VIAL (J1885) IV PRN (17:00)
[2019-06-09] MEDS ORDERED: GLUCOSE 4 GM CHEW TABLET PO PRN (17:00)
[2019-06-09] MEDS ORDERED: GLUCAGON FOR INJ 1 MG VIAL (J1610) SC PRN (17:00)
[2019-06-09] MEDS ORDERED: DEXTROSE 50% 50 ML SYRINGE IV PRN (17:00)
--- NOTE | 2019-06-09 18:55 | HPEPDOC ---
[facility] Medical History & Physical Date of Admission Jun 09, 2019 Date of Service: Jun 09, 2019 Attending Physician: RUBIN WRIGHT MD History and Physical CHIEF COMPLAINT: Nausea, vomiting and abdominal pain HISTORY OF PRESENT ILLNESS: Patient is a 38 year old female who presented to the [facility] ER with complaint of abdominal pain, nausea, and vomiting. She states that she last night leading into this morning she developed midepigastric pain that came on suddenly. She stated that she developed nausea and vomiting. Additionally she stated that she had developed difficulty breathing as she stated that the pain made it difficult to take a deep breath. The patient stated that she continued to vomit and by time she had reached the ED her pain and vomiting had resolved. She did state that over the past month she has felt some abdominal fullness in her midepigastric region that would come and go. She currently denies any difficulty swallowing but states that she has had GERD. She denies any diarrhea or constipation. She states that since arriving in the ED she has not had any more pain or nausea. At arrival in the ED the patient was febrile with a temperature of 100.9. She had a slight elevation of her WBC of 13.7. Her initial labs revealed hypokalemia with a potassium of 2.2. She received oral potassium as well as IV fluids with potassium. She received a gall bladder ultrasound demonstrating multiple small gallbladder calculi near the gallbladder neck with mild dilatation of the common biliary duct measuring 8.8mm. There was no gallbladder wall thickening or pericholecystic fluid to suggest acute cholecystitis by ultrasound. Hospitalist service was consulted for further evaluation and management PAST MEDICAL HISTORY: 1. Bipolar Depression 2. GERD 3. History of Opioid abuse on Buprenorphine PAST SURGICAL HISTORY: 1. NONE SOCIAL HISTORY: Patient currently lives at home with her son. She currently smokes 1 ppd. She denies any alcohol use. She has a past history of opioid abuse. She denies any IV drug use. FAMILY HISTORY: Patients father is from lung cancer. Her mother is alive with hypertension ALLERGIES: Please see below. REVIEW OF SYSTEMS: CONSTITUTIONAL: Admits to fevers and occasional chills. Denies nightsweats HEENT: Denies cough. Denies dysphagia but admits to GERD. Denies sore throat CARDIOVASCULAR: Denies chest pain. Denies palpitations or feelings of the heart racing RESPIRATORY: Admits to shortness of breath during her episode of midepigastric pain. Denies wheezing, cough, or sputum production GASTROINTESTINAL: Admits to nausea and vomiting. Admits to midepigastric discomfort. Denies diarrhea or constipation GENITOURINARY: Denies dysuria, increased frequency or urgency SKIN: Denies rashes or lesions MUSCULOSKELETAL: Denies muscle pain NEUROLOGICAL: Denies changes in gait or speech PSYCHIATRIC: Admits to history of bipolar depression, anxiety and PTSD ENDOCRINE: Denies heat intolerance, cold intolerance. Denies diabetes HEMATOLOGIC/LYMPHATIC: Denies easy bruising or bleeding. Denies history of DVT or PE HOME MEDICATIONS: Please see below. PHYSICAL EXAMINATION: VITAL SIGNS: Temperature 98.8, pulse 93, respiratory rate 20, blood pressure 111/71, pulse oximetry 93% on room air. GENERAL APPEARANCE: Awake, alert, and oriented. Appears in no acute distress. Lying in bed comfortably. Appears in no acute distress HEENT: Normocephalic, atraumatic. Eyes are nonicteric. trachea is midline CARDIOVASCULAR: Normal S1, S2. Regular rate and rhythm. No clicks rubs or murmurs LUNGS: Clear vesicular breath sounds bilaterally. No wheezes, rhonchi, or rales ABDOMEN: Obese. Soft. Midepigastric tenderness. No rebound tenderness or guarding. Normoactive bowel sounds throughout. MUSCULOSKELETAL: 5/5 muscle strength testing in upper and lower extremities bilaterally EXTREMITIES: No edema. Full and equal pulses in bilateral upper and lower extremities NEUROLOGICAL: No focal neurological deficits PSYCHIATRIC: Mood and affect appear appropriate LABORATORY DATA: See below. IMAGING: Abdominal right upper quadrant ultrasound for biliary colic: There are multiple small gallbladder calculi versus echogenic debris within the gallbladder lumen near the gallbladder neck. There is no gallbladder wall thickening or pericholecystic fluid. There is no intrahepatic biliary duct dilatation. The common biliary duct is mildly dilated measuring up to 8.8 mm. The hepatic parenchyma is heterogeneous compatible with hepato steatosis. There are no hepatic masses. The visualized areas of the pancreas are hyperechoic. This may represent fatty atrophy. Portions of the pancreas are obscured by bowel gas. Right kidney measures 11.8 x 5.2 x 4 point centimeters and is normal size. The renal cortex is hyperechoic. This is compatible with medical renal disease. There is no right renal calculus or hydronephrosis. There is no right renal solid or cystic mass. There is no right upper quadrant free fluid. Possible fatty atrophy of the pancreas. No right upper quadrant free fluid. Right renal cortex hyper echogenicity compatible with medical renal disease. No hydronephrosis. The Impression: Multiple small gallbladder calculi near the gallbladder neck. Mild dilatation of the common biliary duct. No gallbladder wall thickening or pericholecystic fluid to suggest acute cholecystitis by ultrasound. Possible fatty atrophy of the pancreas. Right renal cortex hyper echogenicity compatible with medical renal disease. No right renal calculus, hydronephrosis, cyst or solid mass. Electronically Signed by Alfredo Little MD 06/09/2019 09:21 A MICROBIOLOGY: Please see below. ASSESSMENT: Patient is a 38 year old female presenting with a complaint of sudden onset midepigastric pain with nausea vomiting and shortness of breath. On presentation to the ER her pain resolved. She received gallbladder ultrasound de monstrating a mildly dilated common bile duct. . PLAN: 1. Midepigastric pain 2/2 biliary colic -Patient has midepigastric pain. Lipase is normal. T bili is normal. Mild elevation in AST and ALK phos. Gallbladder ultrasound demonstrating gallstones and a mildly dilated common bile duct of 8mm. -Patient currently has minimal pain. MRCP is pending -Will consult GI tomorrow for possible endoscopy to r/o gastritis -Will consult surgery for elective cholecystectomy -Pain management with Ketorolac IV -Patient was tachycardic, febrile with leukocytosis. Patient has been started on IV zosyn. -Patient will be started on Protonix given history of GERD 2. Hypokalemia -Patient presented with hypokalemia. She has received oral and parenteral potassium. She has remained hypokalemic. She states that she has only been vomiting since this morning however states that she has been told her potassium was low in the past. -Will repeat BMP. -Will continue to replete PRN 3. Shortness of breath -Patient stated that she has some shortness of breath. Her pulse oximetry is 90%. Will obtain a chest x-ray 4. Bipolar Depression -Will continue patients home medications 5. History of Opioid Abuse -Patient takes Buprenorphine outpatient. Will continue 6. Tobacco use -Patient smokes 1ppd. Will start nicotine patch 7. DVT prophylaxis -TEDs and Sequentials Vital Signs Vital Signs Date Time Temp Pulse Resp B/P (MAP) Pulse Ox O2 Delivery O2 Flow Rate FiO2 06/09/19 17:01 103 16 94 06/09/19 17:00 139/80 (99) 06/09/19 14:30 Room Air 06/09/19 11:00 2.0 06/09/19 09:45 98.8 Laboratory Data Labs 24H Laboratory Tests 2 06/09/19 06:10: Immature Granulocyte % (Auto) 0.5, Neutrophils (%) (Auto) 81.7H, Lymphocytes (%) (Auto) 6.1L, Monocytes (%) (Auto) 10.6H, Eosinophils (%) (Auto) 0.6, Basophils (%) (Auto) 0.5, Neutrophils # (Auto) 11.2H, Lymphocytes # (Auto) 0.8L, Monocytes # (Auto) 1.5H, Eosinophils # (Auto) 0.1, Basophils # (Auto) 0.1, Nucleated Red Blood Cells % (auto) 0.0, Anion Gap 10, Glomerular Filtration Rate > 60.0, Calc ium Level 8.2L, Total Bilirubin 0.4, Direct Bilirubin 0.2, Aspartate Amino Transf (AST/SGOT) 112H, Alanine Aminotransferase (ALT/SGPT) 64, Alkaline Phosphatase 136H, Total Creatine Kinase 74, Creatine Kinase MB < 1.0, Creatine Kinase MB Relative Index 1.35, Troponin I < 0.02, Total Protein 7.5, Albumin 3.7, Albumin/Globulin Ratio 0.97L, Lipase 162, Human Chorionic Gonadotropin, Qual NEGATIVE 06/09/19 07:28: Urine Color FELICITY, Urine Appearance CLOUDYH, Urine pH 7.0, Urine Specific Raysal 1.023, Urine Protein 1+H, Urine Glucose (UA) NEGATIVE, Urine Ketones TRACEH, Urine Blood NEGATIVE, Urine Nitrite NEGATIVE, Urine Bilirubin NEGATIVE, Urine Urobilinogen 2.0H, Urine Leukocyte Esterase TRACEH, Urine WBC (Auto) 12H, Urine RBC (Auto) 18H, Urine Hyaline Casts (Auto) 0, Urine Bacteria (Auto) NEGATIVE, Urine Squamous Epithelial Cells 53, Urine Mucus (Auto) SMALL, Urine Sperm (Auto) 06/09/19 08:36: Influenza Type A (RT-PCR) NEGATIVE, Influenza Type B (RT-PCR) NEGATIVE CBC/BMP Laboratory Tests 06/09/19 06:10 06/09/19 08:32 06/09/19 13:22 Microbiology Microbiology 06/09/19 Urine Culture, Received Pending Home Medications Scheduled Buprenorphine HCl (Buprenorphine HCl) 8 Mg Tab.subl, 8 MG SL BID Bupropion HCl (Bupropion HCl Sr) 100 Mg Tab.sr.12h, 100 MG PO DAILY Clonidine HCl (Clonidine HCl) 0.1 Mg Tablet, 0.1 MG PO QHS Desvenlafaxine Succinate (Desvenlafaxine Succinate ER) 50 Mg Tab.er.24h, 50 MG PO DAILY Divalproex Sodium (Divalproex Sodium) 250 Mg Tablet.dr, 250 MG PO QAM Divalproex Sodium (Divalproex Sodium) 500 Mg Tablet.dr, 500 MG PO QHS Duloxetine HCl (Duloxetine HCl) 60 Mg Capsule.dr, 60 MG PO DAILY Furosemide (Furosemide) 40 Mg Tablet, 40 MG PO DAILY Gabapentin (Gabapentin) 400 Mg Capsule, 400 MG PO TID Mirtazapine (Remeron) 15 Mg Tablet, 15 MG PO QHS Olanzapine (Olanzapine) 5 Mg Tablet, 5 MG PO DAILY Topiramate (Topiramate) 50 Mg Tablet, 50 MG PO BID Scheduled PRN Ibuprofen (Ibuprofen) 600 Mg Tablet, 600 MG PO QID PRN for PAIN Ondansetron HCl (Ondansetron HCl) 4 Mg Tablet, 4 MG PO DAILY PRN for NAUSEA OR VOMITING Allergies Coded Allergies: codeine (Verified Adverse Reaction, Intermediate, vomits, 10/07/18) A-FIB/CHADSVASC A-FIB History Current/History of A-Fib/PAF?: No GME ATTESTATION GME ATTESTATION My faculty preceptor for this patient encounter was physically present during the encounter and was fully available. All aspects of the patient interview, examination, medical decision making process, and medical care plan development were reviewed and approved by the faculty preceptor. The faculty preceptor is a fernandez and concurs with the plan as stated in the body of this note and will attest to such by his/her cosignature. ATTENDING NOTE Patient was seen and examined by me this morning with the residents. Agree with the above assessment and plan ELLE AGUIRRE DO Jun 09, 2019 17:37 RUBIN WRIGHT MD Jun 11, 2019 13:11
[2019-06-09] MEDS: NICOTINE 21MG/24HR 1 EA TRANSDERMAL TD SCH (19:10)
[2019-06-09] MEDS: ONDANSETRON 4MG/2ML VIAL (J2405) IV SCH ×2 (19:11→23:15)
[2019-06-09] MEDS: PANTOPRAZOLE 40MG INJ (PROTONIX) (C9113) IV SCH (19:11)
[2019-06-09] MEDS: PIPERACILLIN/TAZOBACTAM SOD 3.375 GM in D5W MINI-BAG PLUS 50 ML IV SCH ×2 (19:18→23:16)
[2019-06-09 19:26] LABS: BLOOD UREA NITROGEN 13 MG/DL (7-18); CALCIUM LEVEL 8.2 MG/DL (8.5-10.1); CARBON DIOXIDE LEVEL 33 MEQ/L (21-32); CHLORIDE LEVEL 99 MEQ/L (98-107); CREATININE FOR GFR 0.78 MG/DL (0.55-1.30); GLOMERULAR FILTRATION RATE > 60.0 (>60); GLUCOSE, FASTING 117 MG/DL (70-100); MAGNESIUM LEVEL 2.6 MG/DL (1.8-2.4); POTASSIUM SERUM 2.4 MEQ/L (3.5-5.1); SODIUM LEVEL 137 MEQ/L (136-145)
[2019-06-09 19:50] VITALS: BP 129/79
[2019-06-09] MEDS: TOPIRAMATE (TopAMAX) 25 MG TAB PO SCH (22:05)
[2019-06-09] MEDS: DIVALPROEX 500 MG TAB PO SCH (22:05)
[2019-06-09] MEDS: MIRTAZAPINE 15 MG TAB PO SCH (22:06)
[2019-06-09] MEDS: BUPRENORPHINE/NALOXONE 8-2MG SUBLINGUAL TABLET(SUBOXONE) SL SCH (22:06)
[2019-06-09] MEDS: cloNIDine 0.1 MG TAB PO SCH (22:07)
[2019-06-09] MEDS: OLANZapine 5 MG TAB PO SCH (22:10)
[2019-06-09 22:30] VITALS: BP 134/76
--- NOTE | 2019-06-09 23:23 | REPVR ---
PROCEDURE INFORMATION: Exam: MR Abdomen Without Contrast Exam date and time: 06/09/2019 10:08 PM Age: 38 years old Clinical indication: Abdominal pain; Epigastric; Patient HX: Ruq pain, dilated bile duct; Additional info: Biliary colic/dilated bile duct TECHNIQUE: Imaging protocol: MR of the abdomen without contrast. 3D rendering: MIP and/or 3D reconstructed images were created by the technologist. COMPARISON: GALLBLADDER US 06/09/2019 8:56 AM FINDINGS: Limitations: Suboptimal evaluation of the intra-abdominal organs. T1 weighted images were not submitted. Examination is limited by motion artifact. MRCP images are limited by motion. Liver: No mass. Gallbladder and bile ducts: Gallbladder is distended. No gallbladder wall thickening. Few small gallstones in the gallbladder. CBD measures 9 mm in diameter. Mild intrahepatic biliary ductal dilatation. There is a small meniscus sign in the distal CBD near the sphincter of Oddi. Suspect small 3 mm distal CBD stone. Pancreas: Visualized pancreas is unremarkable. Pancreatic duct measures 4 mm in diameter. Spleen: Mild splenomegaly. There is small fluid or cleft in the posterior margin of the spleen. Adrenals: Unremarkable. No mass. Kidneys and ureters: No hydronephrosis. Kidneys are not fully imaged. Stomach and bowel: Visualized bowel is unremarkable. Intraperitoneal space: Unremarkable. Arteries: No abdominal aortic aneurysm. Bones/joints: Unremarkable. Soft tissues: Unremarkable. IMPRESSION: 1. Limited evaluation. 2. Dilated biliary ducts. 3. There is a small meniscus sign in the distal near the sphincter of Oddi. Suspect small 3 mm stone in the distal CBD. 4. Cholelithiasis without gallbladder wall thickening. Electronically signed by: Yung Guajardo On 06/09/2019 23:23:20 PM
[2019-06-10] MEDS: KCL 40MEQ in NS 1000ML 1,000 ML IV SCH ×2 (01:40→10:07)
[2019-06-10 02:18] LABS: CALCIUM LEVEL 8.2 MG/DL (8.5-10.1); CREATININE FOR GFR 1.19 MG/DL (0.55-1.30); GLOMERULAR FILTRATION RATE 54.3 (>60); POTASSIUM SERUM 2.9 MEQ/L (3.5-5.1)
[2019-06-10] MEDS ORDERED: POTASSIUM CHLORIDE 10 MEQ SR TABLET PO ONE ×2 (02:45→07:15)
--- NOTE | 2019-06-10 03:37 | REP ---
Clinical: Hypoxia and shortness of breath . Comparison: 10/09/2018 . Technique: PA and lateral. Findings: The mediastinum and cardiac silhouette are normal. The lung oropeza are clear and without acute consolidation, effusion, or pneumothorax. The skeletal structures are intact and normal. Impression: 1. No acute cardiopulmonary process. Electronically Signed by Perry Solomon MD 06/10/2019 03:28 A
[2019-06-10] MEDS: ONDANSETRON 4MG/2ML VIAL (J2405) IV SCH ×3 (05:28→18:00)
[2019-06-10] MEDS: PIPERACILLIN/TAZOBACTAM SOD 3.375 GM in D5W MINI-BAG PLUS 50 ML IV SCH ×3 (05:28→21:01)
[2019-06-10 06:00] VITALS: BP 100/63
[2019-06-10 06:22] LABS: HEMATOCRIT 40.3 % (36.0-47.0); MEAN CORPUSCULAR HGB CONC 34.7 g/dl (32.0-36.5); MEAN CORPUSCULAR VOLUME 92.2 fl (80.0-96.0); PLATELET COUNT, AUTOMATED 139 10^3/uL (150-450); RED BLOOD COUNT 4.37 10^6/uL (4.00-5.40); WHITE BLOOD COUNT 5.2 10^3/uL (4.0-10.0)
[2019-06-10 06:46] LABS: ALBUMIN 2.8 GM/DL (3.2-5.2); BILIRUBIN,TOTAL 0.2 MG/DL (0.2-1.0); CALCIUM LEVEL 7.7 MG/DL (8.5-10.1); CREATININE FOR GFR 1.13 MG/DL (0.55-1.30); GLOMERULAR FILTRATION RATE 57.7 (>60); TOTAL PROTEIN 6.6 GM/DL (6.4-8.2)
[2019-06-10] MEDS: buPROPion (WELLBUTRIN SR) 100 MG SR TAB PO SCH (10:07)
[2019-06-10] MEDS: NICOTINE 21MG/24HR 1 EA TRANSDERMAL TD SCH (10:07)
[2019-06-10] MEDS: TOPIRAMATE (TopAMAX) 25 MG TAB PO SCH ×2 (10:08→21:09)
[2019-06-10] MEDS: DIVALPROEX 250 MG TAB PO SCH (10:08)
[2019-06-10] MEDS: DESVENLAFAXINE ER 50 MG TABLET (PRISTIQ) PO SCH (10:08)
[2019-06-10] MEDS: DULoxetine 30 MG CAP (CYMBALTA) PO SCH (10:08)
[2019-06-10] MEDS: OLANZapine 5 MG TAB PO SCH (10:08)
[2019-06-10] MEDS: BUPRENORPHINE/NALOXONE 8-2MG SUBLINGUAL TABLET(SUBOXONE) SL SCH ×2 (10:40→21:09)
--- NOTE | 2019-06-10 13:06 | IPNPDOC ---
Subjective Date Seen The patient was seen on 06/10/19. Subjective Chief Complaint/HPI abdominal pain Events since last encounter GI consult is pending for ERCP. Patient c/o feeling hungry. denies nausea. Abdominal pain is only to RUQ on palpation. Pulmonary: Denies: Dyspnea, Cough Cardiovascular: Denies: Chest Pain, Palpitations, Orthopnea, Paroxysmal Noc. Dyspnea, Lt Headedness Gastrointestinal: Reports: Abdominal Pain; Denies: Nausea, Vomiting Psych: Reports: Mood Normal; Denies: Depression, Memory Issues Objective Physical Examination General Exam: Positive: Alert, No Acute Distress Eye Exam: Positive: PERRLA, Conjunctiva & lids normal, EOMI; Negative: Sclera icteric Chest Exam: Positive: Clear to auscultation, Normal air movement Heart Exam: Positive: Rate Normal, Regular Rhythm, Normal S1, Normal S2; Negative: Murmurs, Rubs Abdomen Exam: Positive: Normal bowel sounds, Soft, Tenderness (RUQ and epigastrum); Negative: Hepatospenomegaly Extremity Exam: Positive: Normal pulses; Negative: Clubbing, Cyanosis, Edema Skin Exam: Positive: Nl turgor and temperature; Negative: Rash, Breakdown Psych Exam: Positive: Mental status NL, Mood NL, Oriented x 3 Assessment /Plan Problems (1) Biliary colic Status: Acute Problem Text: Gastro consult pending MRCP: IMPRESSION: 1. Limited evaluation. 2. Dilated biliary ducts. 3. There is a small meniscus sign in the distal near the sphincter of Oddi. Suspect small 3 mm stone in the distal CBD. 4. Cholelithiasis without gallbladder wall thickening. Electronically signed by: Curt Boyd On 06/09/2019 23:23:20 PM DD: CURT BOYD MD 06/09/192207 DT: TE 06/09/192322 DS: CHUCK 06/09/192322 [~ rep ct labl] (2) Nausea & vomiting Status: Acute (3) Opioid dependence Status: Chronic Response to Treatment: Stable Problem Text: Suboxone replacement continued from home. Takes Subutex from Dr. Mak's (4) Hypokalemia due to excessive gastrointestinal loss of potassium Status: Acute Problem Text: repeat BMP now. Admitting potassium was 2.1. She is improved to 3.0. Her IVF contains 40 Meq Kcl. (5) Anxiety and depression Status: Chronic Problem Text: continue home medications. Plan/VTE VTE Prophylaxis Ordered?: No VTE Exclusion Pharmacological: At Low Risk for VTE VS, I&O, 24H, Fishbone Vital Signs/I&O Vital Signs Date Time Temp Pulse Resp B/P (MAP) Pulse Ox O2 Delivery O2 Flow Rate FiO2 06/10/19 06:00 98.3 85 16 100/63 (75) 98 Room Air 06/09/19 11:00 2.0 I&O- Last 24 Hours up to 6 AM 06/10/19 06:00 Intake Total 2100 ml Output Total 250 ml Balance 1850 ml Laboratory Data 24H LABS Laboratory Tests 2 06/09/19 18:06: Bedside Glucose (Misc Panel) 134H 06/09/19 18:42: Anion Gap 5L, Glomerular Filtration Rate > 60.0, Calcium Level 8.2L, Magnesium Level 2.6H 06/10/19 00:14: Bedside Glucose (Misc Panel) 110H 06/10/19 01:39: Anion Gap 6L, Glomerular Filtration Rate 54.3L, Calcium Level 8.2L 06/10/19 06:10: Nucleated Red Blood Cells % (auto) 0.0, Anion Gap 4L, Glomerular Filtration Rate 57.7L, Calcium Level 7.7L, Total Bilirubin 0.2, Aspartate Amino Transf (AST/SGOT) 130H, Alanine Aminotransferase (ALT/SGPT) 181H, Alkaline Phosphatase 126H, Total Protein 6.6, Albumin 2.8#L, Albumin/Globulin Ratio 0.74L CBC/BMP Laboratory Tests 06/09/19 13:22 06/09/19 18:42 06/10/19 01:39 06/10/19 06:10 Microbiology Microbiology 06/09/19 Blood Culture, Received Pending 06/09/19 Urine Culture - Final, Complete Lien Mejias PRIVATE CLIENT ADVISOR Jun 10, 2019 13:06
[2019-06-10] MEDS ORDERED: fentaNYL 100 MCG/2 ML INJECTION (J3010) As Ordered ONE (13:32)
[2019-06-10] MEDS ORDERED: ROCURONIUM BROMIDE 50 MG/5 ML VIAL As Ordered ONE (13:32)
[2019-06-10] MEDS ORDERED: LIDOCAINE 2% INJ 100 MG/5 ML SDV (FOR ANES.) As Ordered ONE (13:32)
[2019-06-10] MEDS ORDERED: propofoL 200 MG/20 ML VIAL As Ordered ONE (13:32)
[2019-06-10] MEDS ORDERED: MIDAZOLAM INJ 2 MG/2 ML VIAL (J2250) As Ordered ONE (13:33)
[2019-06-10 13:58] VITALS: BP 102/63
[2019-06-10] MEDS ORDERED: ISOVUE-300 61% 50ML VIAL (Q9967) As Ordered ONE (13:59)
[2019-06-10 14:13] LABS: BLOOD UREA NITROGEN 17 MG/DL (7-18); CARBON DIOXIDE LEVEL 30 MEQ/L (21-32); CHLORIDE LEVEL 106 MEQ/L (98-107); GLOMERULAR FILTRATION RATE > 60.0 (>60); GLUCOSE, FASTING 90 MG/DL (70-100); POTASSIUM SERUM 3.1 MEQ/L (3.5-5.1); SODIUM LEVEL 140 MEQ/L (136-145)
--- NOTE | 2019-06-10 14:30 | CR.PDOC ---
General Date of Consultation: Jun 10, 2019 Referring Provider: Humberto Mijares MD Attending Physician: LESLIE RODARTE MD Consultation Primary physician/ hospitalist: -Dr.Joseph Mijares Reason for consult: -Abnormal MRI showing CBD stones. HPI: 38-year-old female patient with bipolar disorder, history of opioid abuse, on buprenorphine, anxiety, migraines, was admitted to [facility] for complaints of abdominal pain, nausea and vomiting. Patient was noted to have severe hypokalemia, electrolyte abnormalities and ultrasound abdomen and MRCP showed CBD stones for which GI was consulted. Patient reports having nausea and vomiting for the past few weeks, with the last episode yesterday, started with midepigastric pain, severe, acute onset, associated with nausea and persistent vomiting. Patient received pain medication any ER and currently on examination, patient denies any active severe pain. Patient also had mild fever episode, but currently denies any further fever. Patient denies any diarrhea or constipation. Patient labs showed severe hypokalemia with hypocalcemia, which are corrected overnight with supplementation. Pertinent negative GI symptoms: Patient denies sick contacts, recent travel, diarrhea, early satiety or unintentional weight loss. No history of hematemesis, melena or hematochezia. Patient reports regular bowel movements. Review of Systems: GI: as stated above CVS: No chest pain, No palpitations, No leg swelling. RS: No Shortness of breath, No Wheezing, no cough PATIENT RELATIONS MANAGER: No dizziness, No motor weakness, No sensory problems Hematology: No bruising, No gum bleeding, Musculoskeletal: No joint pain, ambulating well. Skin: No rash : No hematuria, No burning sensation of the urine ENT: No ear discharge/ pain, No dysphagia. Eyes: No photophobia. Jaundice Home medications: reviewed. Antithrombotic agents: -None Medical h/o: As above. Surgical h/o: None on abdomen. Social h/o: Alcohol: -. Denies, smoking:, Active smoker, IVDA/ drugs:. Past hi story of opioid use.. Family h/o of GI cancers - None Prior Endoscopies: None in [facility] Prior GI evaluations: -None in [facility] Exam: Vitals: reviewed General: Alert and oriented x 3, not in distress HEENT: NO pallor, no icterus. Normal oropharynx, NO cervical lymph nodes. Chest: symmetric with bilateral clear air entry, CVS: S1, S2 heard, normal, no murmurs . Abdomen: non-distended, no surgical scars, soft, non-tender, no palpable masses, normal bowel sounds heard. Rectal exam: Patient refused / Deferred at this time. Extremities: no pedal edema, pulses palpable. PATIENT RELATIONS MANAGER: no focal motor or sensory deficits. Moves all extremities Skin: no rash. Labs: reviewed. Imaging: reviewed. Ultrasound abdomen showed gallbladder calculi and mildly dilated CBD of 8. 8 mm. Hepato-steatosis MRCP -- limited evaluation, dilated biliary ducts and meniscus sign suggestive of 3 mm stone in the distal CBD. Impression: - Acute onset epigastric abdominal pain, nausea and vomiting with mild elevated transaminitis, and abdominal imaging showing cholelithiasis and choledocholithiasis. Mildly elevated WBC and 1 episode of fever -- DDx-- Choledhocholithiasis vs suspected Cholangitis vs cholecystitis. - Borderline low Platelets - with prior h/o Drugs use --Needs further liver work up electively (including viral hepatitis work up) Recommendations: - Patient educated about the test results, possible differential diagnoses and All questions answered. - Close monitoring of vitals and electrolyte and correct as needed. - Continue with broad spectrum antibiotics for now. - NPO - Will schedule for urgent ERCP. The procedure, indications, risks (including acute pancreatitis, bleeding, perforation, infection, hypotension, respiratory depression, allergy, need for endotracheal intubation, surgery, colostomy, cardiac arrest, even ), benefits, limitations (e.g.,incomplete procedure), and all other alternatives (including no intervention) were explained to the patient who understood and agreed for the procedure. - Post procedure recommendations as per the operative note. Plan of care discussed with patient and primary team. Patient verbalized un derstanding and agreed with the plan. Vital Signs/I&O Vital Signs Date Time Temp Pulse Resp B/P (MAP) Pulse Ox O2 Delivery O2 Flow Rate FiO2 06/10/19 13:58 99.0 81 16 102/63 (76) 96 Room Air 06/09/19 11:00 2.0 I&O- Last 24 Hours up to 6 AM 06/10/19 06:00 Intake Total 2100 ml Output Total 250 ml Balance 1850 ml Laboratory Data Labs 24H Laboratory Tests 2 06/09/19 18:06: Bedside Glucose (Misc Panel) 134H 06/09/19 18:42: Anion Gap 5L, Glomerular Filtration Rate > 60.0, Calcium Level 8.2L, Magnesium Level 2.6H 06/10/19 00:14: Bedside Glucose (Misc Panel) 110H 06/10/19 01:39: Anion Gap 6L, Glomerular Filtration Rate 54.3L, Calcium Level 8.2L 06/10/19 06:10: Nucleated Red Blood Cells % (auto) 0.0, Anion Gap 4L, Glomerular Filtration Rate 57.7L, Calcium Level 7.7L, Total Bilirubin 0.2, Aspartate Amino Transf (AST/SGOT) 130H, Alanine Aminotransferase (ALT/SGPT) 181H, Alkaline Phosphatase 126H, Total Protein 6.6, Albumin 2.8#L, Albumin/Globulin Ratio 0.74L 06/10/19 13:34: Anion Gap 4L, Glomerular Filtration Rate > 60.0, Calcium Level 8.0L CBC/BMP Laboratory Tests 06/09/19 18:42 06/10/19 01:39 06/10/19 06:10 06/10/19 13:34 Microbiology Microbiology 06/09/19 Blood Culture, Received Pending 06/09/19 Urine Culture - Final, Complete Allergies Coded Allergies: codeine (Verified Adverse Reaction, Intermediate, vomits, 10/07/18) Home Medications Scheduled Buprenorphine HCl (Buprenorphine HCl) 8 Mg Tab.subl, 8 MG SL BID, (Reported) Bupropion HCl (Bupropion HCl Sr) 100 Mg Tab.sr.12h, 100 MG PO DAILY, (Reported) Clonidine HCl (Clonidine HCl) 0.1 Mg Tablet, 0.1 MG PO QHS, (Reported) Desvenlafaxine Succinate (Desvenlafaxine Succinate ER) 50 Mg Tab.er.24h, 50 MG PO DAILY, (Reported) Divalproex Sodium (Divalproex Sodium) 250 Mg Tablet.dr, 250 MG PO QAM, (Rep orted) Divalproex Sodium (Divalproex Sodium) 500 Mg Tablet.dr, 500 MG PO QHS, (Reported) Duloxetine HCl (Duloxetine HCl) 60 Mg Capsule.dr, 60 MG PO DAILY, (Reported) Furosemide (Furosemide) 40 Mg Tablet, 40 MG PO DAILY, (Reported) Gabapentin (Gabapentin) 400 Mg Capsule, 400 MG PO TID, (Reported) Mirtazapine (Remeron) 15 Mg Tablet, 15 MG PO QHS, (Reported) Olanzapine (Olanzapine) 5 Mg Tablet, 5 MG PO DAILY, (Reported) Topiramate (Topiramate) 50 Mg Tablet, 50 MG PO BID, (Reported) Scheduled PRN Ibuprofen (Ibuprofen) 600 Mg Tablet, 600 MG PO QID PRN for PAIN, (Reported) Ondansetron HCl (Ondansetron HCl) 4 Mg Tablet, 4 MG PO DAILY PRN for NAUSEA OR VOMITING, (Reported) LESLIE RODARTE MD Jun 10, 2019 14:30
[2019-06-10] MEDS ORDERED: ACETAMINOPHEN 1000MG 100ML IV BTL (OFIRMEV) (J0131 PER 10MG) As Ordered ONE (14:54)
[2019-06-10] MEDS ORDERED: ONDANSETRON 4MG/2ML VIAL (J2405) As Ordered ONE (14:55)
[2019-06-10] MEDS ORDERED: METOCLOPRAMIDE INJ 10MG/2ML VIAL (J2765) As Ordered ONE (14:55)
[2019-06-10] MEDS ORDERED: dexameTHASONE 4 MG/ML 1ML VIAL (J1100) As Ordered ONE (14:55)
[2019-06-10] MEDS ORDERED: KETOROLAC 60 MG/2 ML VIAL (J1885) As Ordered ONE (14:55)
[2019-06-10] MEDS ORDERED: SUGAMMADEX SODIUM 500 MG/5 ML VIAL (BRIDION) As Ordered ONE (15:09)
[2019-06-10] MEDS ORDERED: KETOROLAC 30 MG/ML VIAL (J1885) IV PRN (15:29)
--- NOTE | 2019-06-10 15:55 | ROOR ---
Patient Name: Shelly Pérez Procedure Date: 06/10/2019 2:15 PM Date of : 1980 Age: 38 Room: Main OR Gender: Female Note Status: Finalized Procedure: ERCP Indications: Bile duct stone(s), Elevated liver enzymes Providers: Jamshid Simon MD Referring MD: 2. Inpatient 2. Inpatient, Humberto Mijares MD Requesting Provider: Medicines: Monitored Anesthesia Care Complications: No immediate complications. Procedure: Pre-Anesthesia Assessment: - Prior to the procedure, a History and Physical was performed, and patient medications and allergies were reviewed. The patient is competent. The risks and benefits of the procedure and the sedation options and risks were discussed with the patient. All questions were answered and informed consent was obtained. Patient identification and proposed procedure were verified by the physician, the nurse and the anesthesiologist in the procedure room. Mental Status Examination: alert and oriented. Airway Examination: normal oropharyngeal airway and neck mobility. Prophylactic Antibiotics: The patient does not require prophylactic antibiotics. Prior Anticoagulants: The patient has taken no previous anticoagulant or antiplatelet agents. ASA Grade Assessment: II - A patient with mild systemic disease. After reviewing the risks and benefits, the patient was deemed in satisfactory condition to undergo the procedure. The anesthesia plan was to use monitored anesthesia care (MAC). Immediately prior to administration of medications, the patient was re-assessed for adequacy to receive sedatives. The heart rate, respiratory rate, oxygen saturations, blood pressure, adequacy of pulmonary ventilation, and response to care were monitored throughout the procedure. The physical status of the patient was re-assessed after the procedure. The Duodenoscope was introduced through the mouth, and advanced to the duodenum and used to inject contrast into the bile duct. The ERCP was accomplished without difficulty. The patient tolerated the procedure well. Findings: The button sewer hand film was normal. The esophagus was successfully intubated under direct vision. The scope was advanced to a normal major papilla in the descending duodenum without detailed examination of the pharynx, larynx and associated structures, and upper GI tract. The upper GI tract was grossly normal. Initial wire passage of a 0.035 inch x 260 cm straight Hydra Jagwire was passed into the ventral pancreatic duct. A second 0.035 inch x 260 cm straight Dreamwire was used and passed into the biliary tree. The short-nosed traction sphincterotome was passed over the guidewire and the bile duct was then deeply cannulated. Contrast was injected. I personally interpreted the bile duct images. Ductal flow of contrast was adequate. Image quality was adequate. Contrast extended to the entire biliary tree. The main bile duct was diffusely dilated, acquired. The largest diameter was 10 mm. The lower third of the main bile duct contained filling defect(s) thought to be a stone and sludge. The first wire was removed from PD after the CBD is cannulated with sphincterotome. Biliary sphincterotomy was made with a monofilament traction (standard) sphincterotome using ERBE electrocautery. There was no post-sphincterotomy bleeding. The biliary tree was swept with a 9 mm balloon starting at the bifurcation. Sludge was swept from the duct. One 10 Fr by 5 cm plastic stent with a single external flap and a single internal flap was placed into the common bile duct. Bile flowed through the stent. The stent was in good position. Impression: - A filling defect consistent with a stone and sludge was seen on the cholangiogram. - The entire main bile duct was dilated, acquired. - The examination was suspicious for choledocholithiasis. Complete removal was accomplished by biliary sphincterotomy and balloon extraction. - A biliary sphincterotomy was performed. - The biliary tree was swept and sludge was found. - One plastic stent was placed into the common bile duct. Recommendation: - The patient will be observed post-procedure, until all discharge criteria are met. - Patient has a contact number available for emergencies. The signs and symptoms of potential delayed complications were discussed with the patient. Return to normal activities tomorrow. Written discharge instructions were provided to the patient. - [facility]. - Avoid aspirin and nonsteroidal anti-inflammatory medicines for 3 days. - Clear liquid diet today, then advance as tolerated to resume previous diet. 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 - Refer to a surgeon at appointment to be scheduled. - Repeat ERCP in 3 months to remove stent. - Telephone GI clinic if symptomatic today. - Return to GI clinic in [facility] (address [address], [facility] [address], [place] [address]) in 4 -- 6 weeks. Please call GI clinic @ [phone] for apppointment date and time. - Return to primary care physician. Jamshid Simon MD Jamshid Simon MD 06/10/2019 3:54:27 PM Electronically signed by Jamshid Simon MD Number of Addenda: 0 Note Initiated On: 06/10/2019 2:15 PM Estimated Blood Loss: Estimated blood loss was minimal.
[2019-06-10] MEDS ORDERED: LR 1,000 ML IV ONE (16:00)
--- NOTE | 2019-06-10 16:14 | REP ---
ERCP: 120 views. History: Abdominal pain. 1 minute 34 seconds of fluoroscopy time is reported. Findings: A sequence of 120 last image hold fluoroscopically obtained spot radiographs of the right upper quadrant of the abdomen demonstrate cannulation contrast injection, balloon catheter manipulation and stent placement in the common bile duct. Guide wire insertion of the pancreatic duct is also observed. Electronically Signed by Armando Rahman MD 06/10/2019 04:06 P
[2019-06-10] MEDS ORDERED: LR 1,000 ML IV SCH (16:30)
[2019-06-10] MEDS ORDERED: ONDANSETRON 4MG/2ML VIAL (J2405) IV PRN (16:30)
[2019-06-10] MEDS ORDERED: PANTOPRAZOLE 40MG INJ (PROTONIX) (C9113) IV STA (16:46)
[2019-06-10] MEDS ORDERED: SIMETHICONE 80 MG CHEW TAB PO STA (16:47)
[2019-06-10] MEDS ORDERED: SIMETHICONE 40MG/0.6ML DROPS 30ML As Ordered ONE (16:52)
[2019-06-10 17:35] VITALS: BP 118/73
[2019-06-10] MEDS: PANTOPRAZOLE 40MG INJ (PROTONIX) (C9113) IV SCH (18:00)
[2019-06-10 19:22] LABS: ALBUMIN 3.1 GM/DL (3.2-5.2); ALT/SGPT 141 U/L (12-78); BILIRUBIN,DIRECT < 0.1 MG/DL (0.0-0.2); BILIRUBIN,TOTAL 0.2 MG/DL (0.2-1.0); BLOOD UREA NITROGEN 17 MG/DL (7-18); CREATININE FOR GFR 1.15 MG/DL (0.55-1.30); GLOMERULAR FILTRATION RATE 56.5 (>60); TOTAL PROTEIN 6.3 GM/DL (6.4-8.2)
[2019-06-10 19:38] LABS: BASO # 0.1 10^3/uL (0.0-0.2); BASO % 0.5 % (0.0-1.0); EOS % 0.3 % (0.0-3.0); HEMATOCRIT 40.9 % (36.0-47.0); HEMOGLOBIN 13.6 g/dl (12.0-15.5); LYMPH # 0.9 10^3/uL (1.5-5.0); LYMPH % 8.4 % (24.0-44.0); MEAN CORPUSCULAR HEMOGLOBIN 31.2 pg (27.0-33.0); MEAN CORPUSCULAR HGB CONC 33.3 g/dl (32.0-36.5); MEAN CORPUSCULAR VOLUME 93.8 fl (80.0-96.0); MONO # 0.2 10^3/uL (0.0-0.8); MONO % 1.6 % (0.0-5.0); NEUTROPHILS # 9.2 10^3/uL (1.5-8.5); NEUTROPHILS % 88.8 % (36.0-66.0); PLATELET COUNT, AUTOMATED 151 10^3/uL (150-450); RED BLOOD COUNT 4.36 10^6/uL (4.00-5.40); WHITE BLOOD COUNT 10.4 10^3/uL (4.0-10.0)
[2019-06-10 20:00] VITALS: BP 97/55
[2019-06-10 21:00] VITALS: BP 96/58
[2019-06-10] MEDS: cloNIDine 0.1 MG TAB PO SCH (21:00)
[2019-06-10] MEDS: MIRTAZAPINE 15 MG TAB PO SCH (21:12)
[2019-06-10] MEDS: DIVALPROEX 500 MG TAB PO SCH (21:12)
[2019-06-10 22:00] VITALS: BP 97/55
[2019-06-10] MEDS: LR 1,000 ML IV SCH (22:34)
[2019-06-11] MEDS: ONDANSETRON 4MG/2ML VIAL (J2405) IV SCH ×3 (00:14→12:35)
[2019-06-11] MEDS: PIPERACILLIN/TAZOBACTAM SOD 3.375 GM in D5W MINI-BAG PLUS 50 ML IV SCH ×3 (01:28→12:35)
[2019-06-11 06:00] VITALS: BP 94/55
[2019-06-11 06:30] LABS: HEMOGLOBIN 14.4 g/dl (12.0-15.5); MEAN CORPUSCULAR HEMOGLOBIN 31.7 pg (27.0-33.0); MEAN CORPUSCULAR HGB CONC 33.5 g/dl (32.0-36.5); MEAN CORPUSCULAR VOLUME 94.7 fl (80.0-96.0); PLATELET COUNT, AUTOMATED 152 10^3/uL (150-450); RED BLOOD COUNT 4.54 10^6/uL (4.00-5.40); WHITE BLOOD COUNT 10.4 10^3/uL (4.0-10.0)
[2019-06-11 07:14] LABS: ALBUMIN 2.7 GM/DL (3.2-5.2); ALT/SGPT 111 U/L (12-78); BILIRUBIN,TOTAL 0.5 MG/DL (0.2-1.0); BLOOD UREA NITROGEN 10 MG/DL (7-18); CALCIUM LEVEL 8.3 MG/DL (8.5-10.1); CARBON DIOXIDE LEVEL 25 MEQ/L (21-32); CHLORIDE LEVEL 107 MEQ/L (98-107); CREATININE FOR GFR 0.91 MG/DL (0.55-1.30); GLOMERULAR FILTRATION RATE > 60.0 (>60); GLUCOSE, FASTING 111 MG/DL (70-100); POTASSIUM SERUM 3.1 MEQ/L (3.5-5.1); SODIUM LEVEL 138 MEQ/L (136-145); TOTAL PROTEIN 6.4 GM/DL (6.4-8.2)
[2019-06-11] MEDS: LR 1,000 ML IV SCH (09:07)
[2019-06-11] MEDS: TOPIRAMATE (TopAMAX) 25 MG TAB PO SCH (09:08)
[2019-06-11] MEDS: NICOTINE 21MG/24HR 1 EA TRANSDERMAL TD SCH (09:08)
[2019-06-11] MEDS: buPROPion (WELLBUTRIN SR) 100 MG SR TAB PO SCH (09:08)
[2019-06-11] MEDS: BUPRENORPHINE/NALOXONE 8-2MG SUBLINGUAL TABLET(SUBOXONE) SL SCH (09:08)
[2019-06-11] MEDS: OLANZapine 5 MG TAB PO SCH (09:08)
[2019-06-11] MEDS: DULoxetine 30 MG CAP (CYMBALTA) PO SCH (09:08)
[2019-06-11] MEDS: DIVALPROEX 250 MG TAB PO SCH (09:09)
[2019-06-11] MEDS: DESVENLAFAXINE ER 50 MG TABLET (PRISTIQ) PO SCH (09:09)
--- NOTE | 2019-06-11 10:04 | IPNPDOC ---
Subjective Date Seen The patient was seen on 06/11/19. Subjective Chief Complaint/HPI Pt this morning states that she is feeling much better. She has no abd pain, nausea or vomitting. She is hungry. Tolerating clear liquids. General: Denies: Fatigue Constitutional: Denies: Chills, Fever Pulmonary: Denies: Dyspnea, Cough Cardiovascular: Denies: Chest Pain, Palpitations Gastrointestinal: Denies: Nausea, Vomiting, Abdominal Pain Neurological: Denies: Weakness Psych: Reports: Mood Normal Objective Physical Examination General Exam: Positive: Alert, No Acute Distress Eye Exam: Negative: Sclera icteric Chest Exam: Positive: Clear to auscultation, Normal air movement Heart Exam: Positive: Rate Normal, Regular Rhythm, Normal S1, Normal S2; Negative: Murmurs, Rubs Abdomen Exam: Positive: Normal bowel sounds, Soft; Negative: Tenderness, Hepatospenomegaly Extremity Exam: Negative: Edema Skin Exam: Positive: Nl turgor and temperature; Negative: Rash, Breakdown Psych Exam: Positive: Mental status NL, Mood NL, Oriented x 3 Assessment /Plan Problems (1) Biliary colic Status: Acute Problem Text: 06/10 ERCP yesterday with deployment of stent, pain resolved, tolerating clear liquids, will advance diet as tolerated, will need referral to [facility] as outpt. 06/09 Gastro consult pending MRCP: IMPRESSION: 1. Limited evaluation. 2. Dilated biliary ducts. 3. There is a small meniscus sign in the distal near the sphincter of Oddi. Suspect small 3 mm stone in the distal CBD. 4. Cholelithiasis without gallbladder wall thickening. Electronically signed by: Curt Boyd On 06/09/2019 23:23:20 PM DD: CURT BOYD MD 06/09/192207 DT: TE 06/09/192322 DS: CHUCK 06/09/192322 [~ rep ct labl] (2) Nausea & vomiting Status: Acute (3) Opioid dependence Status: Chronic Response to Treatment: Stable Problem Text: Suboxone replacement continued from home. Takes Subutex from Dr. Mak's (4) Hypokalemia due to excessive gastrointestinal loss of potassium Status: Acute Problem Text: repeat BMP now. Admitting potassium was 2.1. She is improved to 3.0. Her IVF contains 40 Meq Kcl. (5) Anxiety and depression Status: Chronic Problem Text: continue home medications. Plan/VTE VTE Prophylaxis Ordered?: No VTE Exclusion Pharmacological: At Low Risk for VTE VS, I&O, 24H, Fishbone Vital Signs/I&O Vital Signs Date Time Temp Pulse Resp B/P (MAP) Pulse Ox O2 Delivery O2 Flow Rate FiO2 06/11/19 06:00 98.2 62 18 94/55 (68) 97 Room Air 06/09/19 11:00 2.0 I&O- Last 24 Hours up to 6 AM 06/11/19 06:00 Intake Total 4520 ml Output Total 900 ml Balance 3620 ml Laboratory Data 24H LABS Laboratory Tests 2 06/10/19 13:34: Anion Gap 4L, Glomerular Filtration Rate > 60.0, Calcium Level 8.0L 06/10/19 18:45: Glomerular Filtration Rate 56.5L, Immature Granulocyte % (Auto) 0.4, Neutrophils (%) (Auto) 88.8H, Lymphocytes (%) (Auto) 8.4L, Monocytes (%) (Auto) 1.6, Eosinophils (%) (Auto) 0.3, Basophils (%) (Auto) 0.5, Neutrophils # (Auto) 9.2H, Lymphocytes # (Auto) 0.9L, Monocytes # (Auto) 0.2, Eosinophils # (Auto) 0.0, Basophils # (Auto) 0.1, Nucleated Red Blood Cells % (auto) 0.0, Total Bilirubin 0.2, Direct Bilirubin < 0.1, Aspartate Amino Transf (AST/SGOT) 80H, Alanine Aminotransferase (ALT/SGPT) 141H, Alkaline Phosphatase 113, Total Protein 6.3L, Albumin 3.1L, Albumin/Globulin Ratio 0.97L 06/11/19 06:14: Anion Gap 6L, Glomerular Filtration Rate > 60.0, Calcium Level 8.3L, Nucleated Red Blood Cells % (auto) 0.0, Total Bilirubin 0.5#, Aspartate Amino Transf (AST/SGOT) 54H, Alanine Aminotransferase (ALT/SGPT) 111H, Alkaline Phosphatase 100, Total Protein 6.4, Albumin 2.7L, Albumin/Globulin Ratio 0.73L CBC/BMP Laboratory Tests 06/10/19 13:34 06/10/19 18:45 06/11/19 06:14 Microbiology Microbiology 06/09/19 Blood Culture - Preliminary, Resulted No growth after 24 hours . All specim... 06/09/19 Urine Culture - Final, Complete JAMIA ELLIS PA-C Jun 11, 2019 10:04
[2019-06-11 14:00] VITALS: BP 109/67
== END 2019-06-11 16:00 | disposition home or self-care (01) ==
LOC: M ED 05:52 → M ED INP 16:58 → ENRESERVTM 18:22 → ENRESERVDT 18:22 → M MSPAV 19:50
PROVIDERS: ADMIT Internal Medicine; ATTEND Family Medicine
PROC: 0FC98ZZ Extirpation of Matter from Common Bile Duct, Via Natural or Artificial Opening Endoscopic (ICD-10-PCS; 2019-06-10)
PROC: 0F798DZ Dilation of Common Bile Duct with Intraluminal Device, Via Natural or Artificial Opening Endoscopic (ICD-10-PCS; principal; 2019-06-10 14:00)
DX: K80.70 Calculus of gallbladder and bile duct without cholecystitis without obstruction (principal); F11.20 Opioid dependence, uncomplicated; E87.6 Hypokalemia; K21.9 Gastro-esophageal reflux disease without esophagitis; F17.200 Nicotine dependence, unspecified, uncomplicated; F31.9 Bipolar disorder, unspecified; Z79.899 Other long term (current) drug therapy; Z88.5 Allergy status to narcotic agent; F41.9 Anxiety disorder, unspecified; G43.909 Migraine, unspecified, not intractable, without status migrainosus

== ENCOUNTER 2019-06-19 17:56 | Emergency (ER) | payer OTHER ==
[~2019-06-19] VITALS: Ht 175.3 cm; Wt 116.3 kg
[~2019-06-19 17:56] MED LIST changes: +BUPR1TAB52 PO; +BUPR8SUB SL; +CLON-412 PO; +DESV50TA3 PO; +DIVA250T67 PO; +DIVA500T94 PO; +DULO60CA35 PO; +FURO40TA2 PO; +GABA-845 PO; +IBUP-1022 PO; +ONDA-83 PO; +REME15TA PO; +TOPI50TA9 PO
[2019-06-19] MEDS ORDERED: FUROSEMIDE 40 MG/4 ML VIAL (J1940) IV ONE (18:30)
[2019-06-19] MEDS ORDERED: COMBIVENT RESPIMAT 100-20MCG INHALER 4GM INH PRN (18:30)
[2019-06-19 18:47] LABS: HEMATOCRIT 39.5 % (36.0-47.0); MEAN CORPUSCULAR HEMOGLOBIN 31.6 pg (27.0-33.0); MEAN CORPUSCULAR HGB CONC 32.9 g/dl (32.0-36.5); MEAN CORPUSCULAR VOLUME 96.1 fl (80.0-96.0); PLATELET COUNT, AUTOMATED 236 10^3/uL (150-450); RED BLOOD COUNT 4.11 10^6/uL (4.00-5.40); WHITE BLOOD COUNT 7.7 10^3/uL (4.0-10.0)
[2019-06-19] MEDS ORDERED: META1TAB22 (18:47)
[2019-06-19] MEDS ORDERED: POTA1TAB14 (18:47)
--- NOTE | 2019-06-19 18:47 | ECGEPIP ---
[facility] - ED Test Date: 2019-06-19 Pat Name: TRISTAN CALDWELL Department: Room: - Gender: Female Triage Assistant: ct : 1980 Requested By: SILVESTRE Zhou Order Number: [id number] Reading MD: Edith Ellis Measurements Intervals [place] Rate: 108 P: 42 TN: 160 QRS: 39 QRSD: 93 T: 9 QT: 331 QTc: 445 Interpretive Statements SINUS TACHYCARDIA ABNORMAL RHYTHM ECG NSTTW abnormalities, LESS PRONOUNCED 10/07/18 Electronically Signed on 06-19-2019 18:47:23 EDT by Edith Ellis
[2019-06-19 18:56] LABS: VENOUS BASE EXCESS -1.1 (-2.0-2.0); VENOUS HCO3 23.7 MEQ/L (23.0-27.0); VENOUS O2 SATURATION 98.3 % (60.0-80.0); VENOUS PARTIAL PRESSURE CO2 39.9 mmHg (38.0-50.0); VENOUS PARTIAL PRESSURE O2 120.6 mmHg (30.0-50.0); VENOUS PH 7.391 UNITS (7.330-7.430); VENOUS STANDARD HCO3 23.6 MEQ/L; VENOUS TOTAL CO2 24.9 MEQ/L (24.0-28.0)
--- NOTE | 2019-06-19 18:58 | REP ---
Clinical: Cough and dyspnea . Comparison: 10/09/2018 . Findings: The mediastinum and cardiac silhouette are stable and within normal limits for portable technique. The lung oropeza are clear without acute consolidation, effusion, or pneumothorax. Skeletal structures are intact. Impression: No acute cardiopulmonary process appreciated. Electronically Signed by Perry Solomon MD 06/19/2019 06:50 P
[2019-06-19] MEDS ORDERED: diazePAM 10 MG/2 ML INJ (J3360) IV ONE (19:00)
[2019-06-19 19:08] LABS: ATYPICAL LYMPH 7 % (0-5); EOSINOPHILS 3 % (0-3); LYMPHOCYTES 39 % (16-44); MONOCYTES 8 % (0-5); MYELOCYTES 1 % (0-0); NEUTROPHILS 42 % (28-66)
[2019-06-19 19:09] LABS: PLATELET ESTIMATE NORMAL (NORMAL)
[2019-06-19 19:13] LABS: ALBUMIN 3.1 GM/DL (3.2-5.2); ALT/SGPT 23 U/L (12-78); BILIRUBIN,DIRECT < 0.1 MG/DL (0.0-0.2); BILIRUBIN,TOTAL 0.1 MG/DL (0.2-1.0); BLOOD UREA NITROGEN 8 MG/DL (7-18); CALCIUM LEVEL 8.1 MG/DL (8.5-10.1); CARBON DIOXIDE LEVEL 25 MEQ/L (21-32); CHLORIDE LEVEL 115 MEQ/L (98-107); CK-MB VALUE MASS < 1.0 NG/ML (<3.6); CPK CREATINE PHOSPHOKINASE 56 U/L (26-192); CREATININE FOR GFR 0.88 MG/DL (0.55-1.30); GLOMERULAR FILTRATION RATE > 60.0 (>60); GLUCOSE, FASTING 103 MG/DL (70-100); MB/CK RELATIVE INDEX 1.79 (< OR =4); NT-PRO BNP 421 PG/ML (<125); POTASSIUM SERUM 3.6 MEQ/L (3.5-5.1); SODIUM LEVEL 144 MEQ/L (136-145); TOTAL PROTEIN 6.3 GM/DL (6.4-8.2); TROPONIN I < 0.02 NG/ML (< 0.10)
[2019-06-19] MEDS ORDERED: ISOVUE-370 76% 100ML VIAL (Q9967) As Ordered ONE (19:21)
--- NOTE | 2019-06-19 20:00 | REPVR ---
PROCEDURE INFORMATION: Exam: CT Angiography Chest With Contrast Exam date and time: 06/19/2019 7:24 PM Age: 38 years old Clinical indication: Shortness of breath; Additional info: SOB TECHNIQUE: Imaging protocol: Computed tomographic angiography of the chest with intravenous contrast. Axial, coronal and sagittal reformatted images were created and reviewed. 3D rendering: MIP and/or 3D reconstructed images were created by the technologist. Radiation optimization: All CT scans at this facility use at least one of these dose optimization techniques: automated exposure control; mA and/or kV adjustment per patient size (includes targeted exams where dose is matched to clinical indication); or iterative reconstruction. Contrast material: ISOVUE 370; Contrast volume: 75 ml; Contrast route: IV; COMPARISON: CR PORTABLE CHEST X-RAY 06/19/2019 6:39 PM FINDINGS: Pulmonary arteries: Contrast opacification satisfactory. No intraluminal filling defect. Aorta: Unremarkable. No aneurysm or dissection. Thyroid: Azygos lobe incidentally noted. Mild central peribronchial thickening, suggestive of airway inflammation. No consolidation. Lungs: See "Thyroid" finding. Pleural space: Unremarkable. No pneumothorax. No pleural effusion. Heart: Unremarkable. No cardiomegaly. No pericardial effusion. Mediastinum: Mild nonspecific distal esophageal wall thickening, suggesting chronic reflux/esophagitis. Gallbladder and bile ducts: Common bile duct stent in place. Lymph nodes: Small mediastinal and hilar lymph nodes, likely reactive. No pathologically enlarged lymph nodes. Bones/joints: No acute osseous abnormality. Soft tissues: Unremarkable. IMPRESSION: 1. No CT evidence of pulmonary embolism. 2. Mild central peribronchial thickening, suggestive of airway inflammation. 3. Additional findings, as above. Electronically signed by: Tj Heaton On 06/19/2019 19:59:57 PM
[2019-06-19 20:31] VITALS: BP 129/60
== END 2019-06-19 20:38 | disposition home or self-care (01) ==
LOC: M ED 17:56
DX: I11.0 Hypertensive heart disease with heart failure (principal); R00.0 Tachycardia, unspecified; R06.00 Dyspnea, unspecified; R60.9 Edema, unspecified; R91.8 Other nonspecific abnormal finding of lung field; G43.909 Migraine, unspecified, not intractable, without status migrainosus; K21.9 Gastro-esophageal reflux disease without esophagitis; F11.20 Opioid dependence, uncomplicated; F17.210 Nicotine dependence, cigarettes, uncomplicated; Z88.5 Allergy status to narcotic agent; Z79.899 Other long term (current) drug therapy
CPT/HCPCS: 71045; 71275; 80048; 80076; 82550; 82553; 82803; 83880; 85025; 93005; 93041; 94640; 94760; 96374; 99284; J1940; J3360; Q9967

== ENCOUNTER → 2019-08-26 | Outpatient (CLI) | payer OTHER ==
[~2019-08-26] MED LIST changes: +META1TAB22; +POTA1TAB14
[2019-08-26 16:24] LABS: ALBUMIN 3.2 GM/DL (3.2-5.2); ALT/SGPT 20 U/L (12-78); BILIRUBIN,DIRECT < 0.1 MG/DL (0.0-0.2); BILIRUBIN,TOTAL 0.2 MG/DL (0.2-1.0); TOTAL PROTEIN 6.4 GM/DL (6.4-8.2)
[2019-08-26 16:31] LABS: BASO # 0.1 10^3/uL (0.0-0.2); BASO % 0.7 % (0.0-1.0); EOS # 0.4 10^3/uL (0.0-0.5); EOS % 4.4 % (0.0-3.0); HEMATOCRIT 43.9 % (36.0-47.0); HEMOGLOBIN 14.6 g/dl (12.0-15.5); LYMPH # 2.5 10^3/uL (1.5-5.0); MEAN CORPUSCULAR HEMOGLOBIN 31.4 pg (27.0-33.0); MEAN CORPUSCULAR HGB CONC 33.3 g/dl (32.0-36.5); MEAN CORPUSCULAR VOLUME 94.4 fl (80.0-96.0); MONO # 0.6 10^3/uL (0.0-0.8); MONO % 7.2 % (0.0-5.0); NEUTROPHILS # 5.2 10^3/uL (1.5-8.5); NEUTROPHILS % 59.2 % (36.0-66.0); PLATELET COUNT, AUTOMATED 229 10^3/uL (150-450); RED BLOOD COUNT 4.65 10^6/uL (4.00-5.40); WHITE BLOOD COUNT 8.8 10^3/uL (4.0-10.0)
[2019-08-27 09:40] LABS: H PYLORI QUALITATIVE IgG NEGATIVE (NEGATIVE)
== END ==
LOC: M WUC 12:54
PROVIDERS: ATTEND Internal Medicine Gastroenterology
DX: R10.13 Epigastric pain (principal)

== ENCOUNTER 2019-10-19 18:42 | Emergency (ER) | payer OTHER ==
[~2019-10-19] VITALS: Ht 175.3 cm; Wt 110.6 kg
[2019-10-19] MEDS ORDERED: HYDR1TAB33 PO (19:14)
[2019-10-19] MEDS ORDERED: REXU1TAB3 PO (19:14)
[2019-10-19] MEDS ORDERED: ADDE1TAB14 PO (19:14)
[2019-10-19] MEDS ORDERED: ADDE20TA PO (19:14)
--- NOTE | 2019-10-19 19:25 | REP ---
Portable chest x-ray: Single view. History: Chest pain. Comparison chest x-ray: June 19, 2019. Findings: Monitoring electrodes overlie the chest. An azygos lobe is again noted. The lungs are well inflated and otherwise clear. The pleural angles are sharp. Heart size is normal. No bony abnormalities seen. Impression: No acute disease. Electronically Signed by Armando Rahman MD 10/19/2019 07:17 P
[2019-10-19 19:29] LABS: BASO # 0.1 10^3/uL (0.0-0.2); BASO % 0.6 % (0.0-1.0); EOS # 0.4 10^3/uL (0.0-0.5); EOS % 3.6 % (0.0-3.0); HEMATOCRIT 40.8 % (36.0-47.0); HEMOGLOBIN 13.6 g/dl (12.0-15.5); LYMPH # 2.9 10^3/uL (1.5-5.0); LYMPH % 28.3 % (24.0-44.0); MEAN CORPUSCULAR HEMOGLOBIN 30.6 pg (27.0-33.0); MEAN CORPUSCULAR HGB CONC 33.3 g/dl (32.0-36.5); MEAN CORPUSCULAR VOLUME 91.9 fl (80.0-96.0); MONO # 0.6 10^3/uL (0.0-0.8); NEUTROPHILS # 6.3 10^3/uL (1.5-8.5); NEUTROPHILS % 60.7 % (36.0-66.0); PLATELET COUNT, AUTOMATED 216 10^3/uL (150-450); RED BLOOD COUNT 4.44 10^6/uL (4.00-5.40); WHITE BLOOD COUNT 10.4 10^3/uL (4.0-10.0)
[2019-10-19 19:35] LABS: BLOOD UREA NITROGEN 6 MG/DL (7-18); CALCIUM LEVEL 8.3 MG/DL (8.5-10.1); CARBON DIOXIDE LEVEL 26 MEQ/L (21-32); CHLORIDE LEVEL 111 MEQ/L (98-107); CREATININE FOR GFR 0.88 MG/DL (0.55-1.30); GLOMERULAR FILTRATION RATE > 60.0 (>60); GLUCOSE, FASTING 93 MG/DL (70-100); POTASSIUM SERUM 3.4 MEQ/L (3.5-5.1); SODIUM LEVEL 141 MEQ/L (136-145)
[2019-10-19] MEDS ORDERED: ISOVUE-370 76% 100ML VIAL As Ordered ONE (20:20)
[2019-10-19 20:32] LABS: NT-PRO BNP 171 PG/ML (<125)
[2019-10-19 21:00] VITALS: BP 119/64
--- NOTE | 2019-10-19 21:52 | REPVR ---
PROCEDURE INFORMATION: Exam: CT Angiography Chest With Contrast Exam date and time: 10/19/2019 9:26 PM Age: 39 years old Clinical indication: Chest pain; Additional info: Chest pain; SOB TECHNIQUE: Imaging protocol: Computed tomographic angiography of the chest with intravenous contrast. 3D rendering: MIP and/or 3D reconstructed images were created by the technologist. Radiation optimization: All CT scans at this facility use at least one of these dose optimization techniques: automated exposure control; mA and/or kV adjustment per patient size (includes targeted exams where dose is matched to clinical indication); or iterative reconstruction. Contrast material: ISOVUE 370; Contrast volume: 75 ml; Contrast route: INTRAVENOUS (IV); COMPARISON: CT ANGIO CHEST 06/19/2019 7:22 PM FINDINGS: Pulmonary arteries: The main pulmonary artery measures 25 mm. Aorta: The ascending thoracic aorta measures 30 mm. Thyroid: An azygos lobe is noted. Lungs: Minimal patchy ground-glass infiltrates with minimal scattered fibro-atelectatic change. There is motion artifact in the lungs. No central pulmonary embolism is identified. Pleural space: Unremarkable. No pneumothorax. No pleural effusion. Heart: Unremarkable. No cardiomegaly. No pericardial effusion. Lymph nodes: Borderline bilateral hilar nodes which are nonspecific. Bones/joints: Unremarkable. No acute fracture. Soft tissues: Unremarkable. IMPRESSION: 1. Borderline bilateral hilar nodes which are nonspecific and similar to 06/19/2019. 2. Otherwise negative CTA chest. There is motion artifact in the lungs with some image degradation. No central pulmonary embolism is identified. Electronically signed by: Ralph Arora On 10/19/2019 21:51:55 PM
[2019-12-04] MEDS ORDERED: POTA1TAB14 (08:55)
[2019-12-04] MEDS ORDERED: DULO1CAP6 PO (09:03)
== END 2019-10-19 23:12 | disposition home or self-care (01) ==
LOC: M ED 18:42
DX: R60.9 Edema, unspecified (principal); R06.00 Dyspnea, unspecified; I50.20 Unspecified systolic (congestive) heart failure; R56.9 Unspecified convulsions; K21.9 Gastro-esophageal reflux disease without esophagitis; F17.210 Nicotine dependence, cigarettes, uncomplicated; Z88.6 Allergy status to analgesic agent; Z79.899 Other long term (current) drug therapy
CPT/HCPCS: 36415; 71045; 71275; 80048; 83880; 85025; 93041; 94760; 99285; Q9967

== ENCOUNTER → 2019-11-03 | Outpatient (REF) | payer OTHER ==
[~2019-11-03] MED LIST changes: +ADDE1TAB14 PO; +ADDE20TA PO; +DULO1CAP6 PO; +HYDR1TAB33 PO; +OXYC1TAB23 PO; +REXU1TAB3 PO
[2019-11-30 14:22] LABS: HEMATOCRIT 43.7 % (36.0-47.0); HEMOGLOBIN 14.5 g/dl (12.0-15.5); MEAN CORPUSCULAR HEMOGLOBIN 30.8 pg (27.0-33.0); MEAN CORPUSCULAR HGB CONC 33.2 g/dl (32.0-36.5); MEAN CORPUSCULAR VOLUME 92.8 fl (80.0-96.0); PLATELET COUNT, AUTOMATED 230 10^3/uL (150-450); RED BLOOD COUNT 4.71 10^6/uL (4.00-5.40); WHITE BLOOD COUNT 11.1 10^3/uL (4.0-10.0)
[2019-12-10 14:32] LABS: ALBUMIN 3.6 GM/DL (3.2-5.2); ALT/SGPT 18 U/L (12-78); AMYLASE 62 U/L (25-115); BILIRUBIN,DIRECT < 0.1 MG/DL (0.0-0.2); BILIRUBIN,TOTAL 0.3 MG/DL (0.2-1.0); LIPASE 89 U/L (73-393)
== END ==
LOC: M WUC 07:39
PROVIDERS: ATTEND Surgery
DX: K80.10 Calculus of gallbladder with chronic cholecystitis without obstruction (principal)

== ENCOUNTER → 2019-12-11 | Outpatient (CLI) | payer OTHER | LOC: M LABSMTC 11:17 | PROVIDERS: ATTEND Anesthesiology | DX: Z11.59 Encounter for screening for other viral diseases (principal) | CPT/HCPCS: C9803; U0003 ==

== ENCOUNTER 2019-12-16 05:57 | Day surgery (SDC) | payer OTHER ==
[~2019-12-16] VITALS: Ht 175.3 cm; Wt 109.3 kg
[~2019-12-16 05:57] MED LIST changes: +BUPIVACAINE HCL 0.25% 30ML VIAL As Ordered ONE; +LIDOCAINE 1% SDV 30ML VIAL As Ordered ONE; -OXYC1TAB23 PO
[2019-12-16] MEDS ORDERED: AMPICILLIN SOD/SULBACTAM SOD 3 GM in D5W MINI-BAG PLUS 100 ML IV ONE (06:00)
[2019-12-16] MEDS ORDERED: LIDOCAINE 1% MDV 20ML VIAL SQ PRN (06:00)
[2019-12-16] MEDS ORDERED: LR 1,000 ML IV ONE (06:00)
[2019-12-16] MEDS ORDERED: UNASYN 3 GM VIAL As Ordered ONE (06:34)
[2019-12-16] MEDS ORDERED: ROCURONIUM BROMIDE 50 MG/5 ML VIAL As Ordered ONE ×2 (07:51→08:07)
[2019-12-16] MEDS ORDERED: propofoL 200 MG/20 ML VIAL As Ordered ONE (07:51)
[2019-12-16] MEDS ORDERED: LIDOCAINE 2% 100MG/5ML SDV (FOR ANES.) As Ordered ONE (07:51)
[2019-12-16] MEDS ORDERED: dexameTHASONE 4 MG/ML 1ML VIAL (J1100 PER 1MG) As Ordered ONE (07:51)
[2019-12-16] MEDS ORDERED: fentaNYL 100 MCG/2 ML INJECTION (J3010) As Ordered ONE ×2 (07:51→09:30)
[2019-12-16] MEDS ORDERED: MIDAZOLAM INJ 2MG/2ML VIAL (J2250 PER 1MG) As Ordered ONE (07:51)
[2019-12-16] MEDS ORDERED: ACETAMINOPHEN 1000MG 100ML IV BTL (OFIRMEV) (J0131 PER 10MG) As Ordered ONE (07:58)
[2019-12-16] MEDS ORDERED: HYDROmorphone HCL 2 MG/ML 1ML VIAL (J1170) As Ordered ONE (08:11)
[2019-12-16] MEDS ORDERED: LABETALOL 100MG/20ML VIAL As Ordered ONE (08:23)
[2019-12-16] MEDS ORDERED: SUGAMMADEX SODIUM 500 MG/5 ML VIAL (BRIDION) As Ordered ONE (08:33)
[2019-12-16] MEDS ORDERED: ONDANSETRON 4MG/2ML VIAL As Ordered ONE (08:33)
[2019-12-16] MEDS ORDERED: KETOROLAC 60MG 2ML VIAL As Ordered ONE (09:08)
--- NOTE | 2019-12-16 09:27 | ROOPDOC ---
[facility] Report Of Operation Report of Operation DATE OF PROCEDURE: 12/16/19 PREOPERATIVE DIAGNOSIS: Cholelithiasis, history of common bile duct stone POSTOPERATIVE DIAGNOSIS: chronic Cholecystitis FINDINGS: decompressed gb, mildly thick walled, prominent hepatic artery, presence of posterior cystic artery along with the main cystic artery separately clipped. enlarged cystic duct, gb does not fluoresce on firefly with ICG PROCEDURE: Robotic Assisted Laparoscopic Cholecystectomy SURGEON: Ricardo Magana MD CRIMPER ASSEMBLER: Olivia Mccallum NP ANESTHESIA: General Anesthesia SPECIMENS: gallbladder ESTIMATED BLOOD LOSS: 20 COMPLICATIONS: none POSTOPERATIVE CONDITION: stable, extubated to PACU DESCRIPTION OF PROCEDURE: Patient was given a dose Unasyn 3 g IV preoperatively for prophylaxis, 5 mg of ICG was given regular after intubation. She was brought to the operating room, laid supine on the table, compression boots placed for DVT prophylaxis. General endotracheal anesthesia started. Her abdomen then prepped and draped in usual sterile fashion. Surgical timeout was performed prior to confirm right procedure, right patient identification and other necessary information prior to starting surgery. Entry into the abdomen done through an incision aslightly to the left of the umbilical cleft. A Veress needle was inserted with a controlled fashion. CO2 insufflation started to pressure 15 mmHg. Using the same incision an 8 mm robotic trochar was placed under direct vision laparoscope. The area underneath the insertion site was inspected and no injury found. She was then placed in a reverse Trendelenburg. Her right side was tilted up to further expose the gallbladder. Under direct vision three more 8 mm trochars were placed along a row at level to the camera port site at the anterior axillary line, right midclavicular line and left mid clavicular line. A transversus abdominis plane block was then performed bilaterally using the lidocaine/marcaine mixture under laparoscopic guidance. The da Xochitl robot tower was then maneuvered in place and the trochards docked to the robot. I used a prograsp, forced bipolar, and hook cautery for the procedure with a 30 robotic camera. I unscrubbed and assumed control of the camera and instruments at the surgeon's console. Operative findings: Liver appears mildly enlarged, fatty replaced. The gallbladder is decompressed, mild chronic thickening of the gallbladder wall without any acute inflammation. The gallbladder does not light up on firefly suggestive of a continued cystic duct obstruction despite gallbladder being decompressed. The course of the hepatic arteries quite prominent and goes close to the lower portion of the gallbladder. The infundibulum is not prominent and the area is covered with thick adiposity. The cystic duct lymph node is either not prominent or not present. I could follow the course of the cystic artery from the hepatic artery which courses slight intimately to the anticipated course of the cystic duct. I could see the course of the common bile duct transilluminate on firefly. Rouvier's sulcus is present and dissection done above this level. The fundus of the gallbladder was grasped and the gallbladder is elevated superiorly exposing the neck of the gallbladder. The peritoneum overlying the lower body of the gb. area is opened up and dissected free both anteriorly and posteriorly to help with retraction of the gallbladder. As the cystic artery courses prominent as able to easily circumferentially dissect course of the cystic artery to separate this one wall of the gallbladder to start the dissection at the hepatocystic triangle. Even with retraction of the gb infundibulum, the gb does not get illuminated by firefly. I was able to get laterally and posteriorly at the neck the gallbladder starting the dissection of the cystic plate. This was further developed with medial dissection connecting both planes posteriorly. On further developing the anterior lateral plane at the level of the hepatocystic triangle I noted that there is another smaller pulsating artery coursing to the lateral wall. This was circumferentially dissected with a small branch going into the cystic duct cauterized. I further developed the plane around the cystic duct to circumferentially come around it. This appears enlarged and I palpated within it to see if there are any stones stuck to it but did not find any stones. There were some fibrous adhesion around it which I further dissected. I did not want to get lower than the proximal cystic duct as the course of the colon bile duct as seen on firefly is close by likewise the course of the hepatic artery is quite close. So this point a critical view safety is achieved although there is an extra lateral artery aside from the previously identified cystic artery and cystic duct. The lateral probably posterior cystic artery was clipped and divided. The cystic artery was likewise clipped and divided. Another try at firefly still did not transilluminate the cystic duct and gallbladder. 2 large hemoclips were placed at the cystic duct side and one at the gallbladder side and the proximal cystic duct was divided. On firefly there is no leakage of bile. The rest of the gallbladder was easily dissected free of the cystic duct plate. The gallbladder was placed in an Endo Catch bag and removed move through the right axillary port site. The clips and liver bed was inspected for bleeding and bile leakage and none found. I closed the extraction site with a 2-0 vloc stitch. The abdomen was deflated, The trochars undocked, the robot removed from the field. Rest of the skin incisions closed with 4-0 Monocryl in subcuticular fashion. Dermabond placed to cover the incisions.. Patient was awakened, extubated and brought to recovery room stable. RICARDO MAGANA MD Dec 16, 2019 09:27
--- NOTE | 2019-12-16 09:27 | POST-OPPD ---
Postoperative Procedure Note Date Of Procedure: Dec 16, 2019 PREOPERATIVE DIAGNOSIS: Cholelithiasis, history of common bile duct stone POSTOPERATIVE DIAGNOSIS: chronic Cholecystitis FINDINGS: decompressed gb, mildly thick walled, prominent hepatic artery, presence of posterior cystic artery along with the main cystic artery separately clipped. enlarged cystic duct, gb does not fluoresce on firefly with ICG PROCEDURE: Robotic Assisted Laparoscopic Cholecystectomy SURGEON: Ricardo Magana MD MALWARE ANALYST: Olivia Mccallum NP ANESTHESIA: General Anesthesia SPECIMENS: gallbladder ESTIMATED BLOOD LOSS: 20 COMPLICATIONS: none POSTOPERATIVE CONDITION: stable, extubated to PACU RICARDO MAGANA MD Dec 16, 2019 09:27
[2019-12-16] MEDS ORDERED: OXYC1TAB23 PO (09:30)
[2019-12-16] MEDS ORDERED: oxyCODONE 5MG TAB As Ordered ONE (09:30)
[2019-12-16] MEDS: fentaNYL 100 MCG/2 ML INJECTION (J3010) IV PRN ×4 (09:32→10:00)
[2019-12-16] MEDS ORDERED: ONDANSETRON 4MG/2ML VIAL IV PRN ×2 (09:45)
[2019-12-16] MEDS ORDERED: LR 1,000 ML IV SCH (09:45)
[2019-12-16] MEDS ORDERED: PERCOCET 5MG/325MG TAB PO PRN (09:45)
[2019-12-16] MEDS ORDERED: oxyCODONE 5MG TAB PO PRN (09:45)
[2019-12-16] MEDS ORDERED: KETOROLAC 30 MG/ML 1ML VIAL IV PRN (09:45)
[2019-12-16 10:40] VITALS: BP 112/62
== END 2019-12-16 11:00 | disposition home or self-care (01) ==
LOC: M SDC 05:57
PROVIDERS: ATTEND Surgery
DX: K81.1 Chronic cholecystitis (principal); I10 Essential (primary) hypertension; F17.210 Nicotine dependence, cigarettes, uncomplicated; F32.9 Major depressive disorder, single episode, unspecified; F41.9 Anxiety disorder, unspecified; R60.0 Localized edema; G43.909 Migraine, unspecified, not intractable, without status migrainosus; Z79.899 Other long term (current) drug therapy; Z86.73 Personal history of transient ischemic attack (TIA), and cerebral infarction without residual deficits; Z88.5 Allergy status to narcotic agent
CPT/HCPCS: 47562; 81025; 88304; J0131; J1100; J1170; J1885; J2250; J2405; J3010

== ENCOUNTER → 2020-01-02 | Outpatient (CLI) | payer OTHER ==
[~2020-01-02] MED LIST changes: -BUPIVACAINE HCL 0.25% 30ML VIAL As Ordered ONE; -LIDOCAINE 1% SDV 30ML VIAL As Ordered ONE; +OXYC1TAB23 PO
== END ==
LOC: M LABSMTC 10:11
PROVIDERS: ATTEND Anesthesiology
DX: Z01.812 Encounter for preprocedural laboratory examination (principal); Z20.828 Contact with and (suspected) exposure to other viral communicable diseases
CPT/HCPCS: C9803; U0003

== ENCOUNTER 2020-01-07 06:05 | Day surgery (SDC) | payer OTHER ==
[~2020-01-07] VITALS: Ht 175.3 cm; Wt 110.1 kg
[~2020-01-07 06:05] MED LIST changes: +LR 1,000 ML IV ONE; +NS 1,000 ML IV ONE
[2020-01-07] MEDS ORDERED: ISOVUE-300 61% 50ML VIAL As Ordered ONE (07:07)
[2020-01-07] MEDS ORDERED: ROCURONIUM BROMIDE 50 MG/5 ML VIAL As Ordered ONE (07:19)
[2020-01-07] MEDS ORDERED: LIDOCAINE 2% 100MG/5ML SDV (FOR ANES.) As Ordered ONE (07:19)
[2020-01-07] MEDS ORDERED: propofoL 200 MG/20 ML VIAL As Ordered ONE (07:19)
[2020-01-07] MEDS ORDERED: fentaNYL 100 MCG/2 ML INJECTION (J3010) As Ordered ONE (07:20)
[2020-01-07] MEDS ORDERED: MIDAZOLAM INJ 2MG/2ML VIAL (J2250 PER 1MG) As Ordered ONE (07:20)
[2020-01-07] MEDS ORDERED: ONDANSETRON 4MG/2ML VIAL As Ordered ONE (07:20)
[2020-01-07] MEDS ORDERED: dexameTHASONE 4 MG/ML 1ML VIAL (J1100 PER 1MG) As Ordered ONE (07:20)
[2020-01-07] MEDS ORDERED: ALBUTEROL 6.7GM INHALER **FOR ANES. CART/OMNICELL ONLY As Ordered ONE (08:17)
[2020-01-07] MEDS ORDERED: propofoL 500 MG/50 ML VIAL As Ordered ONE (08:23)
--- NOTE | 2020-01-07 09:01 | ROOR ---
Patient Name: Shelly Pérez Procedure Date: 01/07/2020 7:17 AM Date of : 1980 Age: 39 Room: [facility] Gender: Female Note Status: Finalized Procedure: ERCP Indications: Bile duct stone(s), Biliary stent removal Providers: Jamshid Simon MD Referring MD: Magali ABDI Requesting Provider: Medicines: Monitored Anesthesia Care Complications: No immediate complications. Procedure: Pre-Anesthesia Assessment: - Prior to the procedure, a History and Physical was performed, and patient medications and allergies were reviewed. The patient is competent. The risks and benefits of the procedure and the sedation options and risks were discussed with the patient. All questions were answered and informed consent was obtained. Patient identification and proposed procedure were verified by the physician, the nurse and the anesthesiologist in the procedure room. Mental Status Examination: alert and oriented. Airway Examination: normal oropharyngeal airway and neck mobility. Respiratory Examination: clear to auscultation. CV Examination: normal. Prophylactic Antibiotics: The patient does not require prophylactic antibiotics. Prior Anticoagulants: The patient has taken no previous anticoagulant or antiplatelet agents. ASA Grade Assessment: II - A patient with mild systemic disease. After reviewing the risks and benefits, the patient was deemed in satisfactory condition to undergo the procedure. The anesthesia plan was to use monitored anesthesia care (MAC). Immediately prior to administration of medications, the patient was re-assessed for adequacy to receive sedatives. The heart rate, respiratory rate, oxygen saturations, blood pressure, adequacy of pulmonary ventilation, and response to care were monitored throughout the procedure. The physical status of the patient was re-assessed after the procedure. The Duodenoscope was introduced through the mouth, and advanced to the duodenum and used to inject contrast into the bile duct. The ERCP was accomplished without difficulty. The patient tolerated the procedure well. Findings: A biliary stent was visible on the commercial lending assistant film. The esophagus was successfully intubated under direct vision without detailed examination of the pharynx, larynx, and associated structures, and upper GI tract. The upper GI tract was grossly normal. One biliary stent originating in the biliary tree was emerging from the major papilla. A biliary sphincterotomy had been performed. The sphincterotomy appeared open. One stent was removed from the biliary tree using a snare. A 0.035 inch x 260 cm straight Hydra Jagwire was passed into the biliary tree. The short-nosed traction sphincterotome was passed over the guidewire and the bile duct was then deeply cannulated. Contrast was injected. I personally interpreted the bile duct images. There was appropriate flow of contrast through the ducts. Image quality was adequate. Contrast extended to the entire biliary tree. The common bile duct, left main hepatic duct and right main hepatic duct were severely dilated and diffusely dilated, uncertain significance. The largest diameter was 15 mm. A 1 mm biliary sphincterotomy was made with a monofilament traction (standard) sphincterotome using ERBE electrocautery. There was no post-sphincterotomy bleeding. The biliary tree was swept with a 15 mm balloon starting at the bifurcation. Sludge was swept from the duct. Occlusion cholangiogram at the end of the procedure did not show any residual filling defects. Pancreatic duct was neither cannulated nor opacified. Impression: - One stent from the biliary tree was seen in the major papilla. - Prior biliary sphincterotomy appeared open. - The left main hepatic duct, right main hepatic duct and common bile duct were severely dilated, uncertain significance. - One stent was removed from the biliary tree. - A biliary sphincterotomy was performed. - The biliary tree was swept and sludge was found. Recommendation: - The patient will be observed post-procedure, until all discharge criteria are met. - Patient has a contact number available for emergencies. The signs and symptoms of potential delayed complications were discussed with the patient. Return to normal activities tomorrow. Written discharge instructions were provided to the patient. - Avoid aspirin and nonsteroidal anti-inflammatory medicines for 5 days. - Clear liquid diet today, then advance as tolerated to high fiber diet and low fat diet. - Perform magnetic resonance imaging (MRI) with gadolinium if symptoms persist. - Telephone GI clinic if symptomatic. - Return to primary care physician. Jamshid Simon MD Jamshid Simon MD 01/07/2020 9:01:12 AM Electronically signed by Jamshid Simon MD Number of Addenda: 0 Note Initiated On: 01/07/2020 7:17 AM Estimated Blood Loss: Estimated blood loss: none.
[2020-01-07] MEDS ORDERED: PERCOCET 5MG/325MG TAB PO PRN (09:30)
[2020-01-07] MEDS ORDERED: ONDANSETRON 4MG/2ML VIAL IV PRN (09:30)
[2020-01-07] MEDS ORDERED: METOCLOPRAMIDE INJ 10MG/2ML VIAL (J2765 PER 1) IV PRN (09:30)
[2020-01-07] MEDS ORDERED: fentaNYL 100 MCG/2 ML INJECTION (J3010) IV PRN (09:30)
[2020-01-07] MEDS ORDERED: LR 1,000 ML IV SCH (09:30)
[2020-01-07 10:30] VITALS: BP 115/67
--- NOTE | 2020-01-11 11:03 | REP ---
ERCP: 99 VIEWS HISTORY: Common bile duct stone. FLUROSCOPY TIME: 57.7 seconds reported. FINDINGS: A sequence of 98 [id number] fluoroscopically obtained spot radiographs of the right upper quadrant taken during endoscopy and ERCP exam demonstrate cannulation, contrast injection, balloon catheter manipulation, and guidewire manipulation of the common bile duct. MTDD
== END 2020-01-07 10:42 | disposition home or self-care (01) ==
LOC: M SDC 06:05
PROVIDERS: ATTEND Internal Medicine Gastroenterology
DX: K80.50 Calculus of bile duct without cholangitis or cholecystitis without obstruction (principal); K83.8 Other specified diseases of biliary tract; Z46.59 Encounter for fitting and adjustment of other gastrointestinal appliance and device; F31.9 Bipolar disorder, unspecified; F32.9 Major depressive disorder, single episode, unspecified; F41.9 Anxiety disorder, unspecified; F90.9 Attention-deficit hyperactivity disorder, unspecified type; F17.218 Nicotine dependence, cigarettes, with other nicotine-induced disorders; Z79.899 Other long term (current) drug therapy; E66.9 Obesity, unspecified; Z88.5 Allergy status to narcotic agent
CPT/HCPCS: 43262; 43264; 43275; 74330; 81025; J1100; J2250; J2405; J3010; Q9967

== ENCOUNTER → 2020-03-01 | Outpatient (CLI) | payer OTHER ==
[~2020-03-01] MED LIST changes: -LR 1,000 ML IV ONE; +MIRT-62 PO; -NS 1,000 ML IV ONE; -REME15TA PO
--- NOTE | 2020-03-03 00:51 | ECWPNPC ---
PATIENT NAME: TRISTAN CALDWELL : 1980 GENDER: FEMALE VISIT DATE: 03/01/2020 DISCHARGE DATE: 03/01/20 1140 VISIT LOCKED DATE TIME: PHYSICIAN: NAS ARIAS PHYSICIAN PAGER NO: ACTIVE RESOURCE: NAS ARIAS REASON FOR APPOINTMENT 1. BACK PAIN HISTORY OF PRESENT ILLNESS GENERAL: - 39-YEAR-OLD FEMALE IN FOR CHRONIC PAIN FOLLOW-UP. PATIENT HAS BEEN ON GABAPENTIN IN THE PAST AND FOUND IT BENEFICIAL IN RELIEVING HER SYMPTOMS. SHE DOES ADMIT THAT OF RECENTLY SHE HAS NOT BEEN ON GABAPENTIN. SHE RATES HER PAIN CURRENTLY AT A 5 OUT OF 10 AND DESCRIBES IT SHOOTING. FALL RISK SCREENING: SCREENING :ONE FALL WITHOUT INJURY IN THE PAST YEAR PAIN SCREENING: PATIENT HAS A COMPLAINT OF ACUTE OR CHRONIC PAIN :YES PAIN IS INCREASED BY:PROLONGED STANDING DURATION:CONTINOUS,CONSTANT WHAT DOES YOUR PAIN FEEL LIKE:SHOOTING INTENSITY OF PAIN (SCALE OF 1 TO 10):5 LOCATION OF PAIN:MID BACK,LOW BACK NURSING NOTE: -. PAIN CENTER INTAKE QUESTIONS: DO YOU HAVE A HISTORY OF MRSA? :NO DO YOU TAKE A BLOOD THINNERS? :NO DO YOU HAVE ANY BLEEDING DISORDERS? :NO ANY NEW NUMBNESS OR WEAKNESS IN YOUR LEGS OR ARMS? :YES LEGS LOCK UP WHEN TRY TO WALK TOO LONG DUE TO BACK PX ANY PACEMAKER,DEFIBRILLATOR, OR DORSAL COLUMN STIMULATOR? :NO DO YOU HAVE ANY RASHES OR OPEN SORES? :NO ARE YOU ALLERGIC TO IV DYE? :NO ARE YOU DIABETIC? :NO ANY NEW PROBLEMS WITH YOUR MEDICATIONS? :NO HAVE YOU RECEIVED A VACCINE IN THE PAST 30 DAYS? :NO DO YOU PLAN TO RECEIVE A VACCINE IN THE NEXT 21 DAYS? :NO DO YOU NEED ANY PRESCRIPTION? :NO DO YOU TAKE ANY IMMUNOSUPPRESSIVE MEDICATIONS? :NO IS THERE A CHANCE YOU COULD BE ? :NO ARE YOU BREAST FEEDING? :NO CURRENT MEDICATIONS TAKING BUPROPION HCL 100 MG TABLET 3 TABLETS ORALLY ONCE DAILY TAKING CLONIDINE HCL 0.1 MG TABLET 1 TABLET ORALLY ONCE A DAY TAKING SUBUTEX 8 MG 1 TAB SUBLINGUALLY TWICE DAILY TAKING IBUPROFEN 800 MG TABLET 1 TABLET WITH FOOD OR MILK NEEDED ORALLY THREE TIMES A DAY TAKING MAY HAVE - - SOFT NEOPRENE SLEEVE BRACE FOR RT. KNEE TOPICALLY WHILE OUT OF BED TAKING BACLOFEN 5 MG TABLET DIRECTED ORALLY THREE TIMES A DAY TAKING GABAPENTIN 600 MG TABLET 1 TABLET ORALLY THREE TIMES DAILY TAKING REXULTI 1 MG TABLET TAKE ONE TABLET BY MOUTH AT BEDTIME ORAL TAKING WELLBUTRIN SR 100 MG TABLET EXTENDED RELEASE 12 HOUR 1 TAB ORALLY THREE TIMES DAILY TAKING CYMBALTA 60 MG CAPSULE DELAYED RELEASE PARTICLES 1 CAPSULE ORALLY BID TAKING LASIX 40 MG TABLET 1 TABLET ORALLY DAILY NOT-TAKING SKELAXIN 800 MG TABLET 1 TABLET ORALLY THREE TIMES A DAY NOT-TAKING PRISTIQ 50 MG TABLET EXTENDED RELEASE 24 HOUR 2 TABLETS ORALLY ONCE A DAY NOT-TAKING MOVANTIK 12.5 MG TABLET 1 TABLET IN THE MORNING ORALLY ONCE A DAY NOT-TAKING NICODERM CQ 21 MG/24HR PATCH 24 HOUR 1 PATCH TO SKIN TRANSDERMAL ONCE A DAY NOT-TAKING POTASSIUM CHLORIDE ER 20 MEQ TABLET EXTENDED RELEASE 1 TABLET WITH FOOD ORALLY ONCE A DAY NOT-TAKING DIVALPROEX SODIUM ER 250 MG TABLET EXTENDED RELEASE 24 HOUR 1 TABLET ORALLY ONCE A DAY IN AM NOT-TAKING DIVALPROEX SODIUM ER 500 MG TABLET EXTENDED RELEASE 24 HOUR 1 TABLET ORALLY ONCE A DAY AT HS NOT-TAKING TOPAMAX 50 MG TABLET 1 TABLET ORALLY TWICE DAILY NOT-TAKING GABAPENTIN 400 MG CAPSULE 1 CAPSULE TAPERING DOSE ORALLY THREE TIMES DAILY NOT-TAKING DICLOFENAC SODIUM 1.5 % SOLUTION 40 DROPS TO AFFECTED AREA TRANSDERMAL FOUR TIMES A DAY NOT-TAKING MIRTAZAPINE 15 MG TABLET 1 TABLET AT BEDTIME ORALLY ONCE A DAY NOT-TAKING ACETAMINOPHEN 500 MG TABLET 1 TABLET NEEDED ORALLY EVERY 6 HRS MEDICATION LIST REVIEWED AND RECONCILED WITH THE PATIENT PAST MEDICAL HISTORY DRUG 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 SONG; NOW ON ZUBSOLV BIPOLAR DISORDER ANXIETY PTSD MIGRAINES GERD LUMBAGO C SCIATICA RT. SIDE NYHA CLASSS1 CHF DEPRESSION PT REPORTS SHE WAS TOLD BY HER PRIMARY DR FONSECA THAT SHE HAD A MILD STROKE WAS SEEN ON A CT SCAN ALLERGIES N.K.D.A. SURGICAL HISTORY DENTAL EXTRACTIONS 2017 FAMILY HISTORY FATHER: 73 YRS, DIAGNOSED WITH OTHER MALIGNANT NEOPLASM OF UNSPECIFIED SITE MOTHER: ALIVE 78 YRS, HYPERTENSION MATERNAL GRAND FATHER: , OTHER MALIGNANT NEOPLASM OF UNSPECIFIED SITE 3 BROTHER(S) , 5 SISTER(S) - HEALTHY. 2 SON(S) , 3 DAUGHTER(S) - HEALTHY. DAD OF LUNG CA. SOCIAL HISTORY GENERAL: TOBACCO USE ARE YOU A:CURRENT SMOKER ARE YOU INTERESTED IN QUITTING?READY TO QUIT TRYING TO QUIT, USING NICOTROL VAPE CARTRIDGES PREVIOUS QUIT ATTEMPTS?YES, WITHIN THE LAST 6 MONTHS. COUNSELED THE PATIENT ON TOBACCO USE, CESSATION [id number]/01/2020 HOW MANY CIGARETTES A DAY DO YOU SMOKE?5 OR LESS HOW SOON AFTER YOU WAKE UP DO YOU SMOKE YOUR FIRST CIGARETTE?AFTER 60 MIN HOW OFTEN DO YOU SMOKE CIGARETTES?EVERY DAY PATIENT COUNSELED ON THE DANGERS OF TOBACCO USE AND URGED TO QUIT:03/01/2020 VAPOR USING NICOTROL VAPE CARTRIDGES LATEX QUESTIONNAIRE LATEX ALLERGY : HAVE YOU EVER DEVELOPED ANY TYPE OF REACTION AFTER HANDLING LATEX PRODUCTS SUCH RUBBER GLOVES, CONDOMS, DIAPHRAGMS, BALLOONS, SOCKS, OR UNDERWEAR?NO LATEX ALLERGY : HAVE YOU EVER DEVELOPED ANY TYPE OF REACTION DURING OR AFTER DENTAL APPOINTMENT, VAGINAL/RECTAL EXAMINATION, SURGICAL PROCEDURE, OR ANY OTHER EXPOSURE?NO LATEX RISK : HAVE YOU EVER HAD ANY DIFFICULTY BREATHING OR HIVES AFTER EATING OR HANDLING ANY FRUITS, OR VEGETABLES; SUCH KIWI, BANANAS, STONE FRUITS, OR CHESTNUTSNO LATEX RISK : DO YOU HAVE A PREVIOUS PERSONAL HISTORY OF MORE THAN NINE SURGERIES, SPINA BIFIDA, OR REPEATED CATHERIZATIONS? NO LATEX RISK : ARE YOU FREQUENTLY EXPOSED TO LATEX PRODUCTS IN YOUR OCCUPATION?NO DATE ASKED : 03/01/2020 BMI CARE GOAL FOLLOW-UP ABOVE NORMAL BMI FOLLOW-UPDIETARY MANAGEMENT EDUCATION, GUIDANCE, AND COUNSELING, GIVING ENCOURAGEMENT TO EXERCISE, WEIGHT MONITORING ALCOHOL SCREENING DID YOU HAVE A DRINK CONTAINING ALCOHOL IN THE PAST YEAR?NO POINTS0 INTERPRETATIONNEGATIVE RECREATIONAL DRUG USE DRUG USE?NO CAFFEINE CAFFEINE USE?NO SEXUAL HX HAD SEX IN THE LAST 12 MONTHS (VAGINAL, ORAL, OR ANAL)?NO LMP:12/2017 HAVE YOU EVER HAD AN STD?YES OTHER?NO HERPES?NO SYPHILIS?NO GC?NO CHLAMYDIA?YES HIV / HEP-C SCREENING HIV TEST OFFERED TO PATIENT:YES DATE OFFERED:10/07/2018 TEST ACCEPTED:NO HEP-C TEST OFFERED TO PATIENT:YES DATE OFFERED:10/07/2018 REASON:PATIENT DECLINED TEST ACCEPTED:NO REASON:PATIENT DECLINED BROCHURE PROVIDED TO PATIENTYES ORTHODOX ORTHODOX NO BAPTISM BELIEFS THAT WOULD IMPACT HEALTH CARE. LANGUAGE LANGUAGES SPOKEN:TAJIK EDUCATION LEVEL OF EDUCATION:NOT FINISHED HIGH SCHOOL LEARNING BARRIERS / SPECIAL NEEDS CHANGE FROM LAST VISIT?NO BARRIERS TO LEARNING?NO MILD LEARNING DISABILITY HEARING IMPAIRED?NO VISION IMPAIRED?YES COGNITIVELY IMPAIRED?NO PT REPORTS MILD LEARNING DISABILITY :CORRECTIVE LENSES READINESS TO LEARN?YES LEARNING PREFERENCES?NO LEARNING CAPABILITIES PRESENT?YES EMOTIONAL BARRIERS?NO SPECIAL DEVICES?NO CRM COORDINATOR NEEDED?NO DOMESTIC VIOLENCE DO YOU FEEL SAFE IN YOUR ENVIRONMENT?YES OCCUPATION: UNEMPLOYED. DIET: REGULAR. EXERCISE: NO REGULAR EXERCISE. MARITAL STATUS: . OTHERS AT HOME: ONE SON AT HOME. TODAY'S VISITNOTES PATIENT DESCRIBES PAIN :HAVE IT ALL THE TIME, OTHER SPASMS FROM 0-10, WHAT LEVEL IS YOUR PAIN TODAY?6 PAIN CLINIC PFS, CLERGY, PUBLIC HEALTH REFERRALS HAS THE PATIENT BEEN EDUCATED REGARDING HIS/HER PLAN OF CARE?YES HAS THE PATIENT BEEN EDUCATED REGARDING PAIN, THE RISK FOR PAIN, THE IMPORTANCE OF EFFECTIVE PAIN MANAGEMENT, AND THE PAIN ASSESSMENT PROCESS?YES ADVANCE DIRECTIVE ADVANCE DIRECTIVE DISCUSSED WITH PATIENT:YES PT HAS NO ADVANCED DIRECTIVES, INFORMATION AND/OR ASSISTANCE DECLINED AT THIS TIME HOSPITALIZATION/MAJOR DIAGNOSTIC PROCEDURE 1-2DAYS FOR PREGNANCIES REVIEW OF SYSTEMS CONSTITUTIONAL: ANY RECENT FEVER NO . CHILLS NO . WEIGHT CHANGE OF UNKNOWN REASONS NO . GASTROENTEROLOGY: NEW UNEXPLAINABLE CHANGES IN BOWEL CONTROL NO . CONSTIPATION NO . GENITOURINARY: ANY NEW CHANGE IN BLADDER CONTROL? NO . NEUROLOGY: NEW ONSET DIZZINESS OR NEUROLOGICAL CHANGES NOT MENTIONED NO . NEW NUMBNESS OR PAIN PATTERNS NOT MENTIONED AND PERTINENT TO TODAY'S VISIT NO . CARDIOLOGY: NEW CHEST PRESSURE NO . NEW CHEST PAIN NO . RESPIRATORY: UNEXPLAINABLE COUGH NO . NEW SHORTNESS OF BREATH NO . VITAL SIGNS WT 230.8 LBS, HT 69 IN, BMI 34.08 INDEX, BP 121/74 MM HG, HR 112 /MIN, RR 18 /MIN, TEMP 97.9 F, OXYGEN SAT % 100%, NA INITIALS AW 1112. EXAMINATION GENERAL EXAMINATION: GENERALNO ACUTE DISTRESS, WELL NOURISHED AND HYDRATED. PSYCHAPPROPRIATE MOOD AND AFFECT . LUNGS:CLEAR TO AUSCULTATION BILATERALLY, NO WHEEZES, RHONCHI, RALES. HEART:NO MURMURS, REGULAR RATE AND RHYTHM. ASSESSMENTS SPINAL STENOSIS OF LUMBAR REGION, UNSPECIFIED WHETHER NEUROGENIC CLAUDICATION PRESENT - M48.061 (PRIMARY) TREATMENT SPINAL STENOSIS OF LUMBAR REGION, UNSPECIFIED WHETHER NEUROGENIC CLAUDICATION PRESENT REFILL GABAPENTIN CAPSULE, 300 MG, 1 TABLET, ORALLY, THREE TIMES DAILY START DAY 6, 30 DAY(S), 90 TABLET, REFILLS 0 START GABAPENTIN CAPSULE, 100 MG, 1 CAPSULE, ORALLY, THREE TIMES DAILY X 5 DAYS, 5 DAYS, 15 NOTES: 39-YEAR-OLD FEMALE IN FOR CHRONIC PAIN FOLLOW-UP. GIVEN PRESENTING SYMPTOMS RECOMMENDED RESTARTING GABAPENTIN WITH FOLLOW-UP IN ONE MONTH TO DETERMINE EFFICACY OF TREATMENT. PATIENT HAS EXPRESSED UNDERSTANDING OF AND WAS IN AGREEMENT WITH TREATMENT PLAN. GIVEN TIME TO ASK QUESTIONS AND EXPRESS CONCERNS. PROCEDURE CODES FA211 ESTABILISHED PATIENT [facility] CHARGE DISPOSITION & COMMUNICATION FOLLOW UP 4 WEEKS (REASON: BACK PAIN, MEDICATION) ELECTRONICALLY SIGNED BY DENY CARPENTER ON 03/02/2020 AT 08:55 AM EST DISCLAIMER : THIS IS A VISIT SUMMARY EXTRACTED FROM THE [employer] CHART. IT IS NOT A COPY OF THE [employer] PROGRESS NOTE. KIRTI
== END ==
LOC: M PAIN 11:15
PROVIDERS: ATTEND Family Medicine
DX: M48.061 Spinal stenosis, lumbar region without neurogenic claudication (principal); G89.29 Other chronic pain; G43.909 Migraine, unspecified, not intractable, without status migrainosus; F17.210 Nicotine dependence, cigarettes, uncomplicated; Z86.59 Personal history of other mental and behavioral disorders; Z79.899 Other long term (current) drug therapy

== ENCOUNTER → 2020-03-29 | Outpatient (CLI) | payer OTHER ==
--- NOTE | 2020-03-31 02:49 | ECWPNPC ---
PATIENT NAME: TRISTAN CALDWELL : 1980 GENDER: FEMALE VISIT DATE: 03/29/2020 DISCHARGE DATE: 03/29/20 1505 VISIT LOCKED DATE TIME: PHYSICIAN: NAS ARIAS PHYSICIAN PAGER NO: ACTIVE RESOURCE: NAS ARIAS REASON FOR APPOINTMENT 1. 4 WEEK FOLLOW UP BACK PAIN, MEDICATION HISTORY OF PRESENT ILLNESS GENERAL: 39-YEAR-OLD FEMALE IN FOR CHRONIC PAIN FOLLOW-UP. AT LAST CLINIC VISIT PATIENT'S GABAPENTIN WAS INCREASED AND SHE DOES ADMIT THAT THIS HAS BEEN BENEFICIAL. SHE DOES ADMIT TO INCREASED PAIN AND RADICULAR SYMPTOMS. SHE RATES HER PAIN CURRENTLY AT A 4/10 AND DESCRIBES IT ACHING, SHARP, AND THROBBING. FALL RISK SCREENING: SCREENING :ONE FALL WITH INJURY IN THE PAST YEAR INCREASE BACK PAIN FROM FALL NO MEDICAL CARE SAW PAIN SCREENING: PATIENT HAS A COMPLAINT OF ACUTE OR CHRONIC PAIN :YES LOCATION OF PAIN:MID BACK, LOW BACK INTENSITY OF PAIN (SCALE OF 1 TO 10):4 WHAT DOES YOUR PAIN FEEL LIKE:ACHING, SHARP, THROBBING, SHOOTING DURATION:CONSTANT PAIN IS INCREASED BY:ACTIVITIES, OTHERS STANDING, WALKING PAIN IS DECREASED BY:USE OF PAIN MEDICATIONS, SITTING NURSING NOTE: -. CURRENT MEDICATIONS TAKING CLONIDINE HCL 0.1 MG TABLET 1 TABLET ORALLY ONCE A DAY TAKING SUBUTEX 8 MG 1 TAB SUBLINGUALLY TWICE DAILY TAKING IBUPROFEN 800 MG TABLET 1 TABLET WITH FOOD OR MILK NEEDED ORALLY THREE TIMES A DAY TAKING MAY HAVE - - SOFT NEOPRENE SLEEVE BRACE FOR RT. KNEE TOPICALLY WHILE OUT OF BED TAKING REXULTI 1 MG TABLET TAKE ONE TABLET BY MOUTH AT BEDTIME ORAL TAKING CYMBALTA 60 MG CAPSULE DELAYED RELEASE PARTICLES 1 CAPSULE ORALLY BID TAKING GABAPENTIN 300 MG CAPSULE 1 TABLET ORALLY THREE TIMES DAILY START DAY 6 TAKING GABAPENTIN 100 MG CAPSULE 1 CAPSULE ORALLY THREE TIMES DAILY X 5 DAYS TAKING LASIX 40 MG TABLET 1 TABLET ORALLY DAILY NOT-TAKING BUPROPION HCL 100 MG TABLET 3 TABLETS ORALLY ONCE DAILY NOT-TAKING BACLOFEN 5 MG TABLET DIRECTED ORALLY THREE TIMES A DAY NOT-TAKING WELLBUTRIN SR 100 MG TABLET EXTENDED RELEASE 12 HOUR 1 TAB ORALLY THREE TIMES DAILY NOT-TAKING SKELAXIN 800 MG TABLET 1 TABLET ORALLY THREE TIMES A DAY NOT-TAKING PRISTIQ 50 MG TABLET EXTENDED RELEASE 24 HOUR 2 TABLETS ORALLY ONCE A DAY NOT-TAKING MOVANTIK 12.5 MG TABLET 1 TABLET IN THE MORNING ORALLY ONCE A DAY NOT-TAKING NICODERM CQ 21 MG/24HR PATCH 24 HOUR 1 PATCH TO SKIN TRANSDERMAL ONCE A DAY NOT-TAKING POTASSIUM CHLORIDE ER 20 MEQ TABLET EXTENDED RELEASE 1 TABLET WITH FOOD ORALLY ONCE A DAY NOT-TAKING DIVALPROEX SODIUM ER 250 MG TABLET EXTENDED RELEASE 24 HOUR 1 TABLET ORALLY ONCE A DAY IN AM NOT-TAKING DIVALPROEX SODIUM ER 500 MG TABLET EXTENDED RELEASE 24 HOUR 1 TABLET ORALLY ONCE A DAY AT HS NOT-TAKING TOPAMAX 50 MG TABLET 1 TABLET ORALLY TWICE DAILY NOT-TAKING GABAPENTIN 400 MG CAPSULE 1 CAPSULE TAPERING DOSE ORALLY THREE TIMES DAILY NOT-TAKING DICLOFENAC SODIUM 1.5 % SOLUTION 40 DROPS TO AFFECTED AREA TRANSDERMAL FOUR TIMES A DAY NOT-TAKING MIRTAZAPINE 15 MG TABLET 1 TABLET AT BEDTIME ORALLY ONCE A DAY NOT-TAKING ACETAMINOPHEN 500 MG TABLET 1 TABLET NEEDED ORALLY EVERY 6 HRS MEDICATION LIST REVIEWED AND RECONCILED WITH THE PATIENT PAST MEDICAL HISTORY BIPOLAR DISORDER ANXIETY PTSD MIGRAINES GERD DRUG 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 SONG; NOW ON ZUBSOLV LUMBAGO C SCIATICA RT. SIDE NYHA CLASSS1 CHF DEPRESSION PT REPORTS SHE WAS TOLD BY HER PRIMARY DR FONSECA THAT SHE HAD A MILD STROKE WAS SEEN ON A CT SCAN ALLERGIES N.K.D.A. SURGICAL HISTORY DENTAL EXTRACTIONS 2016 GALLBADDER REMOVAL 2019 FAMILY HISTORY FATHER: 73 YRS, DIAGNOSED WITH OTHER MALIGNANT NEOPLASM OF UNSPECIFIED SITE MOTHER: ALIVE 78 YRS, HYPERTENSION MATERNAL GRAND FATHER: , OTHER MALIGNANT NEOPLASM OF UNSPECIFIED SITE 3 BROTHER(S) , 5 SISTER(S) - HEALTHY. 2 SON(S) , 3 DAUGHTER(S) - HEALTHY. DAD OF LUNG CA. SOCIAL HISTORY GENERAL: TOBACCO USE ARE YOU A:CURRENT SMOKER ARE YOU INTERESTED IN QUITTING?READY TO QUIT TRYING TO QUIT, USING NICOTROL VAPE CARTRIDGES PREVIOUS QUIT ATTEMPTS?YES, WITHIN THE LAST 6 MONTHS. COUNSELED THE PATIENT ON TOBACCO USE, CESSATION [id number]/01/2020 HOW MANY CIGARETTES A DAY DO YOU SMOKE?5 OR LESS HOW SOON AFTER YOU WAKE UP DO YOU SMOKE YOUR FIRST CIGARETTE?AFTER 60 MIN HOW OFTEN DO YOU SMOKE CIGARETTES?EVERY DAY PATIENT COUNSELED ON THE DANGERS OF TOBACCO USE AND URGED TO QUIT:03/29/2020 VAPOR USING NICOTROL VAPE CARTRIDGES LATEX QUESTIONNAIRE LATEX ALLERGY : HAVE YOU EVER DEVELOPED ANY TYPE OF REACTION AFTER HANDLING LATEX PRODUCTS SUCH RUBBER GLOVES, CONDOMS, DIAPHRAGMS, BALLOONS, SOCKS, OR UNDERWEAR?NO LATEX ALLERGY : HAVE YOU EVER DEVELOPED ANY TYPE OF REACTION DURING OR AFTER DENTAL APPOINTMENT, VAGINAL/RECTAL EXAMINATION, SURGICAL PROCEDURE, OR ANY OTHER EXPOSURE?NO LATEX RISK : HAVE YOU EVER HAD ANY DIFFICULTY BREATHING OR HIVES AFTER EATING OR HANDLING ANY FRUITS, OR VEGETABLES; SUCH KIWI, BANANAS, STONE FRUITS, OR CHESTNUTSNO LATEX RISK : DO YOU HAVE A PREVIOUS PERSONAL HISTORY OF MORE THAN NINE SURGERIES, SPINA BIFIDA, OR REPEATED CATHERIZATIONS? NO LATEX RISK : ARE YOU FREQUENTLY EXPOSED TO LATEX PRODUCTS IN YOUR OCCUPATION?NO DATE ASKED : 03/29/2020 BMI CARE GOAL FOLLOW-UP ABOVE NORMAL BMI FOLLOW-UPDIETARY MANAGEMENT EDUCATION, GUIDANCE, AND COUNSELING, GIVING ENCOURAGEMENT TO EXERCISE, WEIGHT MONITORING ALCOHOL SCREENING DID YOU HAVE A DRINK CONTAINING ALCOHOL IN THE PAST YEAR?NO POINTS0 INTERPRETATIONNEGATIVE RECREATIONAL DRUG USE DRUG USE?NO CAFFEINE CAFFEINE USE?NO SEXUAL HX HAD SEX IN THE LAST 12 MONTHS (VAGINAL, ORAL, OR ANAL)?NO LMP:12/2017 HAVE YOU EVER HAD AN STD?YES OTHER?NO HERPES?NO SYPHILIS?NO GC?NO CHLAMYDIA?YES HIV / HEP-C SCREENING HIV TEST OFFERED TO PATIENT:YES DATE OFFERED:10/07/2018 TEST ACCEPTED:NO HEP-C TEST OFFERED TO PATIENT:YES DATE OFFERED:10/07/2018 REASON:PATIENT DECLINED TEST ACCEPTED:NO REASON:PATIENT DECLINED BROCHURE PROVIDED TO PATIENTYES HINDUISM HINDUISM NO QUAKER BELIEFS THAT WOULD IMPACT HEALTH CARE. LANGUAGE LANGUAGES SPOKEN:CHINESE EDUCATION LEVEL OF EDUCATION:NOT FINISHED HIGH SCHOOL LEARNING BARRIERS / SPECIAL NEEDS CHANGE FROM LAST VISIT?NO BARRIERS TO LEARNING?NO MILD LEARNING DISABILITY HEARING IMPAIRED?NO VISION IMPAIRED?YES COGNITIVELY IMPAIRED?NO PT REPORTS MILD LEARNING DISABILITY :CORRECTIVE LENSES READINESS TO LEARN?YES LEARNING PREFERENCES?NO LEARNING CAPABILITIES PRESENT?YES EMOTIONAL BARRIERS?NO SPECIAL DEVICES?NO ART FRAMING MANAGER NEEDED?NO DOMESTIC VIOLENCE DO YOU FEEL SAFE IN YOUR ENVIRONMENT?YES OCCUPATION: UNEMPLOYED. DIET: REGULAR. EXERCISE: NO REGULAR EXERCISE. MARITAL STATUS: . OTHERS AT HOME: ONE SON AT HOME. TODAY'S VISITNOTES PATIENT DESCRIBES PAIN :HAVE IT ALL THE TIME, OTHER SPASMS FROM 0-10, WHAT LEVEL IS YOUR PAIN TODAY?6 PAIN CLINIC PFS, CLERGY, PUBLIC HEALTH REFERRALS HAS THE PATIENT BEEN EDUCATED REGARDING HIS/HER PLAN OF CARE?YES HAS THE PATIENT BEEN EDUCATED REGARDING PAIN, THE RISK FOR PAIN, THE IMPORTANCE OF EFFECTIVE PAIN MANAGEMENT, AND THE PAIN ASSESSMENT PROCESS?YES ADVANCE DIRECTIVE ADVANCE DIRECTIVE DISCUSSED WITH PATIENT:YES PT HAS NO ADVANCED DIRECTIVES, INFORMATION AND/OR ASSISTANCE DECLINED AT THIS TIME HOSPITALIZATION/MAJOR DIAGNOSTIC PROCEDURE 1-2DAYS FOR PREGNANCIES 2019 REVIEW OF SYSTEMS CONSTITUTIONAL: ANY RECENT FEVER NO . CHILLS NO . WEIGHT CHANGE OF UNKNOWN REASONS NO . GASTROENTEROLOGY: NEW UNEXPLAINABLE CHANGES IN BOWEL CONTROL NO . CONSTIPATION NO . GENITOURINARY: ANY NEW CHANGE IN BLADDER CONTROL? NO . NEUROLOGY: NEW ONSET DIZZINESS OR NEUROLOGICAL CHANGES NOT MENTIONED NO . NEW NUMBNESS OR PAIN PATTERNS NOT MENTIONED AND PERTINENT TO TODAY'S VISIT NO . CARDIOLOGY: NEW CHEST PRESSURE NO . NEW CHEST PAIN NO . RESPIRATORY: UNEXPLAINABLE COUGH NO . NEW SHORTNESS OF BREATH NO . VITAL SIGNS WT 229.4 LBS, HT 69 IN, BMI 33.87 INDEX, BP 117/77 MM HG, HR 95 /MIN, RR 18 /MIN, TEMP 98.5 F, OXYGEN SAT % 97%, SAFE IN ENV? (Y/N) YES, NA INITIALS SC 14:00, REVIEWED BY: SOCRATES OLIVEROS. EXAMINATION GENERAL EXAMINATION: GENERALNO ACUTE DISTRESS, WELL NOURISHED AND HYDRATED. PSYCHAPPROPRIATE MOOD AND AFFECT . LUNGS:CLEAR TO AUSCULTATION BILATERALLY, NO WHEEZES, RHONCHI, RALES. HEART:NO MURMURS, REGULAR RATE AND RHYTHM. BACK:TENDER BILATERAL LUMBAR SPINE, SURROUNDING SKIN SHOWS NO ERYTHEMA, ECCHYMOSIS, INCREASED WARMTH, AND/OR SKIN ERUPTIONS NOTED. BILATERAL POSITIVE MODIFIED SLR . MUSCULOSKELETAL:NOTABLE WEAKNESS OF THE LOWER EXTREMITIES BILATERALLY . 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 GIVEN PRESENTING SYMPTOMS AND RESULTS OF PHYSICAL EXAMINATION RECOMMENDED LUMBAR EPIDURAL STEROID INJECTION L4-L5 L5-S1 WITH POSTPROCEDURAL FOLLOW-UP. PATIENT HAS EXPRESSED UNDERSTANDING OF AND WAS IN AGREEMENT WITH TREATMENT PLAN. GIVEN TIME TO ASK QUESTIONS AND EXPRESS CONCERNS. LUMBAR EPIDURAL STEROID INJECTION INFORMATION PRINTED AND REVIEWED WITH PATIENT. PATIENT VERBLAIZES UNDERSTANDING OF PROCEDURE AND OF PRE PROCEDURE INSTRUCTIONS REVIEWED. 03/29/2020 Porfiiro WALTER RN. PROCEDURE CODES FA211 ESTABILISHED PATIENT [facility] CHARGE DISPOSITION & COMMUNICATION FOLLOW UP POSTPROCEDURE (REASON: LUMBAR EPIDURAL STEROID INJECTION L4-L5 L5-S1) ELECTRONICALLY SIGNED BY DENY CARPENTER ON 03/30/2020 AT 09:28 AM EST DISCLAIMER : THIS IS A VISIT SUMMARY EXTRACTED FROM THE [employer] CHART. IT IS NOT A COPY OF THE [employer] PROGRESS NOTE. KIRTI
== END ==
LOC: M PAIN 13:45
PROVIDERS: ATTEND Family Medicine
DX: M51.9 Unspecified thoracic, thoracolumbar and lumbosacral intervertebral disc disorder (principal); G89.29 Other chronic pain; G43.909 Migraine, unspecified, not intractable, without status migrainosus; F17.210 Nicotine dependence, cigarettes, uncomplicated; Z86.59 Personal history of other mental and behavioral disorders; Z79.899 Other long term (current) drug therapy

== ENCOUNTER → 2020-04-13 | Outpatient (REF) | payer OTHER ==
[~2020-04-13] MED LIST changes: -BUPR150T3; +BUPR150T4; +GABA-282; +GABA-282 PO; -GABA-843; -GABA-843 PO
== END ==
LOC: M WUC 09:27
PROVIDERS: ATTEND Physician Assistant
DX: L02.413 Cutaneous abscess of right upper limb (principal)

== ENCOUNTER → 2020-04-27 | Outpatient (CLI) | payer OTHER | LOC: M LABSMTC 13:35 | PROVIDERS: ATTEND Anesthesiology | DX: Z20.822 Contact with and (suspected) exposure to COVID-19 (principal) ==

== ENCOUNTER → 2020-05-02 | Outpatient (CLI) | payer OTHER ==
[~2020-05-02] MED LIST changes: +ISOVUE-M 300 61% 15ML VIAL As Ordered ONE; +LIDOCAINE 1% SDV 30ML VIAL As Ordered ONE; +diazePAM 5MG TABLET As Ordered ONE; +methylPREDNISolone SUSP 40MG/ML 1ML VIAL (DEPO MEDROL) As Ordered ONE; +oxyCODONE 5MG TAB As Ordered ONE
--- NOTE | 2020-05-02 16:34 | REP ---
INDICATION: LUMBAR EPIDURAL STEROID INJECTION. COMPARISON: None. TECHNIQUE: Three views. 7.6 seconds of fluoroscopy time is reported. FINDINGS: A sequence of 3 last image hold fluoroscopically obtained spot radiograph(s) of the lumbar spine document(s) needle position(s) and contrast injection associated with injection procedure. IMPRESSION: Procedural imaging. <Electronically signed by Blaze Rahman > 05/02/20 [id number]
--- NOTE | 2020-05-04 02:50 | ECWPNPC ---
PATIENT NAME: TRISTAN CALDWELL : 1980 GENDER: FEMALE VISIT DATE: 05/02/2020 DISCHARGE DATE: 05/02/20 151 VISIT LOCKED DATE TIME: PHYSICIAN: WILLIE MARCUS MD PHYSICIAN PAGER NO: ACTIVE RESOURCE: WILLIE MARCUS MD REASON FOR APPOINTMENT 1. LUMBAR EPIDURAL STEROID INJECTION HISTORY OF PRESENT ILLNESS GENERAL: -. FALL RISK SCREENING: SCREENING :ONE FALL WITHOUT INJURY IN THE PAST YEAR PAIN SCREENING: PATIENT HAS A COMPLAINT OF ACUTE OR CHRONIC PAIN :YES LOCATION OF PAIN:MID BACK, LOW BACK INTENSITY OF PAIN (SCALE OF 1 TO 10):6 WHAT DOES YOUR PAIN FEEL LIKE:ACHING, CONTINOUS, SHARP, TENDER, THROBBING, SORE, SHOOTING DURATION:CONTINOUS, CONSTANT PAIN IS INCREASED BY:ACTIVITIES, PROLONGED STANDING PAIN IS DECREASED BY:USE OF PAIN MEDICATIONS, OTHERS HEAT, REST NURSING NOTE: -. PAIN CENTER INTAKE QUESTIONS: DO YOU HAVE A HISTORY OF MRSA? :NO DO YOU TAKE A BLOOD THINNERS? :NO DO YOU HAVE ANY BLEEDING DISORDERS? :NO ANY NEW NUMBNESS OR WEAKNESS IN YOUR LEGS OR ARMS? :NO ANY PACEMAKER,DEFIBRILLATOR, OR DORSAL COLUMN STIMULATOR? :NO DO YOU HAVE ANY RASHES OR OPEN SORES? :NO ARE YOU ALLERGIC TO IV DYE? :NO ARE YOU DIABETIC? :NO ANY NEW PROBLEMS WITH YOUR MEDICATIONS? :NO HAVE YOU RECEIVED A VACCINE IN THE PAST 30 DAYS? :NO DO YOU PLAN TO RECEIVE A VACCINE IN THE NEXT 21 DAYS? :NO DO YOU TAKE ANY IMMUNOSUPPRESSIVE MEDICATIONS? :NO ANY HISTORY OF SEIZURES? :NO ANY HISTORY OF CARDIAC ISSUES OR EVENTS? :NO DO YOU HAVE SLEEP APNEA? :NO ANY RECENT HEAD INJURY? :NO DO YOU HAVE ANY NEW INFECTIONS? :NO IS THERE A CHANCE YOU COULD BE ? :NO ARE YOU BREAST FEEDING? :NO WHEN DID YOU LAST EAT? : 05/01/20 2100 WHEN DID YOU LAST DRINK? : 05/01/20 2300 WHAT DID YOU LAST DRINK? : ORANGE JUICE NAME OF PERSON DRIVING YOU HOME? : -STAN DO YOU HAVE ANY OTHER QUESTIONS OR CONCERNS? : - CURRENT MEDICATIONS TAKING CLONIDINE HCL 0.1 MG TABLET 1 TABLET ORALLY ONCE A DAY, NOTES: 05/01/20 AFTERNOON TAKING SUBUTEX 8 MG 1 TAB SUBLINGUALLY TWICE DAILY, NOTES: 05/01/20 AM TAKING IBUPROFEN 800 MG TABLET 1 TABLET WITH FOOD OR MILK NEEDED ORALLY THREE TIMES A DAY TAKING MAY HAVE - - SOFT NEOPRENE SLEEVE BRACE FOR RT. KNEE TOPICALLY WHILE OUT OF BED TAKING REXULTI 1 MG TABLET TAKE ONE TABLET BY MOUTH AT BEDTIME ORAL TAKING CYMBALTA 60 MG CAPSULE DELAYED RELEASE PARTICLES 1 CAPSULE ORALLY BID TAKING LASIX 40 MG TABLET 1 TABLET ORALLY DAILY, NOTES: 05/01/20 AM TAKING GABAPENTIN 400 MG CAPSULE 1 CAPSULE TAPERING DOSE ORALLY THREE TIMES DAILY TAKING TRAZODONE HCL 100 MG TABLET 1 TABLET AT BEDTIME ORALLY ONCE A DAY NOT-TAKING BUPROPION HCL 100 MG TABLET 3 TABLETS ORALLY ONCE DAILY NOT-TAKING BACLOFEN 5 MG TABLET DIRECTED ORALLY THREE TIMES A DAY NOT-TAKING WELLBUTRIN SR 100 MG TABLET EXTENDED RELEASE 12 HOUR 1 TAB ORALLY THREE TIMES DAILY NOT-TAKING SKELAXIN 800 MG TABLET 1 TABLET ORALLY THREE TIMES A DAY NOT-TAKING PRISTIQ 50 MG TABLET EXTENDED RELEASE 24 HOUR 2 TABLETS ORALLY ONCE A DAY NOT-TAKING MOVANTIK 12.5 MG TABLET 1 TABLET IN THE MORNING ORALLY ONCE A DAY NOT-TAKING NICODERM CQ 21 MG/24HR PATCH 24 HOUR 1 PATCH TO SKIN TRANSDERMAL ONCE A DAY NOT-TAKING POTASSIUM CHLORIDE ER 20 MEQ TABLET EXTENDED RELEASE 1 TABLET WITH FOOD ORALLY ONCE A DAY NOT-TAKING DIVALPROEX SODIUM ER 250 MG TABLET EXTENDED RELEASE 24 HOUR 1 TABLET ORALLY ONCE A DAY IN AM NOT-TAKING DIVALPROEX SODIUM ER 500 MG TABLET EXTENDED RELEASE 24 HOUR 1 TABLET ORALLY ONCE A DAY AT HS NOT-TAKING TOPAMAX 50 MG TABLET 1 TABLET ORALLY TWICE DAILY NOT-TAKING DICLOFENAC SODIUM 1.5 % SOLUTION 40 DROPS TO AFFECTED AREA TRANSDERMAL FOUR TIMES A DAY NOT-TAKING MIRTAZAPINE 15 MG TABLET 1 TABLET AT BEDTIME ORALLY ONCE A DAY NOT-TAKING ACETAMINOPHEN 500 MG TABLET 1 TABLET NEEDED ORALLY EVERY 6 HRS MEDICATION LIST REVIEWED AND RECONCILED WITH THE PATIENT PAST MEDICAL HISTORY BIPOLAR DISORDER ANXIETY PTSD MIGRAINES GERD DRUG 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 SONG; NOW ON ZUBSOLV LUMBAGO C SCIATICA RT. SIDE NYHA CLASSS1 CHF DEPRESSION PT REPORTS SHE WAS TOLD BY HER PRIMARY DR FONSECA THAT SHE HAD A MILD STROKE WAS SEEN ON A CT SCAN ALLERGIES CODEINE SULFATE: ANAPHYLAXIS - ALLERGY SURGICAL HISTORY DENTAL EXTRACTIONS 2017 GALLBADDER REMOVAL 01/2020 FAMILY HISTORY FATHER: 73 YRS, DIAGNOSED WITH OTHER MALIGNANT NEOPLASM OF UNSPECIFIED SITE MOTHER: ALIVE 78 YRS, HYPERTENSION MATERNAL GRAND FATHER: , OTHER MALIGNANT NEOPLASM OF UNSPECIFIED SITE 3 BROTHER(S) , 5 SISTER(S) - HEALTHY. 2 SON(S) , 3 DAUGHTER(S) - HEALTHY. DAD OF LUNG CA. SOCIAL HISTORY GENERAL: TOBACCO USE ARE YOU A:CURRENT SMOKER ARE YOU INTERESTED IN QUITTING?READY TO QUIT TRYING TO QUIT, USING NICOTROL VAPE CARTRIDGES PREVIOUS QUIT ATTEMPTS?YES, WITHIN THE LAST 6 MONTHS. COUNSELED THE PATIENT ON TOBACCO USE, CESSATION KAUBLNEV01/04/2020 HOW MANY CIGARETTES A DAY DO YOU SMOKE?5 OR LESS HOW SOON AFTER YOU WAKE UP DO YOU SMOKE YOUR FIRST CIGARETTE?AFTER 60 MIN HOW OFTEN DO YOU SMOKE CIGARETTES?EVERY DAY PATIENT COUNSELED ON THE DANGERS OF TOBACCO USE AND URGED TO QUIT:06/03/2019 VAPOR USING NICOTROL VAPE CARTRIDGES LATEX QUESTIONNAIRE LATEX ALLERGY : HAVE YOU EVER DEVELOPED ANY TYPE OF REACTION AFTER HANDLING LATEX PRODUCTS SUCH RUBBER GLOVES, CONDOMS, DIAPHRAGMS, BALLOONS, SOCKS, OR UNDERWEAR?NO LATEX ALLERGY : HAVE YOU EVER DEVELOPED ANY TYPE OF REACTION DURING OR AFTER DENTAL APPOINTMENT, VAGINAL/RECTAL EXAMINATION, SURGICAL PROCEDURE, OR ANY OTHER EXPOSURE?NO LATEX RISK : HAVE YOU EVER HAD ANY DIFFICULTY BREATHING OR HIVES AFTER EATING OR HANDLING ANY FRUITS, OR VEGETABLES; SUCH KIWI, BANANAS, STONE FRUITS, OR CHESTNUTSNO LATEX RISK : DO YOU HAVE A PREVIOUS PERSONAL HISTORY OF MORE THAN NINE SURGERIES, SPINA BIFIDA, OR REPEATED CATHERIZATIONS? NO LATEX RISK : ARE YOU FREQUENTLY EXPOSED TO LATEX PRODUCTS IN YOUR OCCUPATION?NO DATE ASKED : 04/29/2020 BMI CARE GOAL FOLLOW-UP ABOVE NORMAL BMI FOLLOW-UPDIETARY MANAGEMENT EDUCATION, GUIDANCE, AND COUNSELING, GIVING ENCOURAGEMENT TO EXERCISE, WEIGHT MONITORING ALCOHOL SCREENING DID YOU HAVE A DRINK CONTAINING ALCOHOL IN THE PAST YEAR?NO POINTS0 INTERPRETATIONNEGATIVE RECREATIONAL DRUG USE DRUG USE?NO CAFFEINE CAFFEINE USE?NO SEXUAL HX HAD SEX IN THE LAST 12 MONTHS (VAGINAL, ORAL, OR ANAL)?NO LMP:12/2017 HAVE YOU EVER HAD AN STD?YES OTHER?NO HERPES?NO SYPHILIS?NO GC?NO CHLAMYDIA?YES HIV / HEP-C SCREENING HIV TEST OFFERED TO PATIENT:YES DATE OFFERED:10/07/2018 TEST ACCEPTED:NO HEP-C TEST OFFERED TO PATIENT:YES DATE OFFERED:10/07/2018 REASON:PATIENT DECLINED TEST ACCEPTED:NO REASON:PATIENT DECLINED BROCHURE PROVIDED TO PATIENTYES UATSDIN UATSDIN NO BUDDHISM BELIEFS THAT WOULD IMPACT HEALTH CARE. LANGUAGE LANGUAGES SPOKEN:TONGAN EDUCATION LEVEL OF EDUCATION:NOT FINISHED HIGH SCHOOL LEARNING BARRIERS / SPECIAL NEEDS CHANGE FROM LAST VISIT?NO BARRIERS TO LEARNING?NO MILD LEARNING DISABILITY HEARING IMPAIRED?NO VISION IMPAIRED?YES :CORRECTIVE LENSES COGNITIVELY IMPAIRED?NO PT REPORTS MILD LEARNING DISABILITY READINESS TO LEARN?YES LEARNING PREFERENCES?NO LEARNING CAPABILITIES PRESENT?YES EMOTIONAL BARRIERS?NO SPECIAL DEVICES?NO CHARGING MACHINE OPERATOR NEEDED?NO DOMESTIC VIOLENCE DO YOU FEEL SAFE IN YOUR ENVIRONMENT?YES OCCUPATION: UNEMPLOYED. DIET: REGULAR. EXERCISE: NO REGULAR EXERCISE. MARITAL STATUS: . OTHERS AT HOME: ONE SON AT HOME. TODAY'S VISIT NOTES, PATIENT DESCRIBES PAIN : HAVE IT ALL THE TIME, OTHER SPASMS, FROM 0-10, WHAT LEVEL IS YOUR PAIN TODAY? 6. - HAS THE PATIENT BEEN EDUCATED REGARDING HIS/HER PLAN OF CARE?YES HAS THE PATIENT BEEN EDUCATED REGARDING PAIN, THE RISK FOR PAIN, THE IMPORTANCE OF EFFECTIVE PAIN MANAGEMENT, AND THE PAIN ASSESSMENT PROCESS?YES ADVANCE DIRECTIVE ADVANCE DIRECTIVE DISCUSSED WITH PATIENT:YES PT HAS NO ADVANCED DIRECTIVES, INFORMATION AND/OR ASSISTANCE DECLINED AT THIS TIME HOSPITALIZATION/MAJOR DIAGNOSTIC PROCEDURE 1-2DAYS FOR PREGNANCIES 2019 VITAL SIGNS WT 227.2 LBS, HT 69 IN, BMI 33.55 INDEX, BP 100/52 MM HG, HR 93 /MIN, RR 18 /MIN, TEMP 97.6 F, OXYGEN SAT % 97%, SAFE IN ENV? (Y/N) YES, NA INITIALS AW 1325, REVIEWED BY: JSJ. BERTA RN. EXAMINATION GENERAL EXAMINATION: THE PATIENT IS ALERT, ORIENTED TIMES THREE AND COOPERATIVE. LUNGS ARE CLEAR TO AUSCULTATION. HEART SHOWS REGULAR RHYTHM, NO MURMURS AND NO GALLOPS. ASSESSMENTS INTERVERTEBRAL DISC DISORDERS WITH RADICULOPATHY, LUMBOSACRAL REGION - M51.17 (PRIMARY) TREATMENT INTERVERTEBRAL DISC DISORDERS WITH RADICULOPATHY, LUMBOSACRAL REGION [facility] FLUORO GUIDE SPINE INJECTION (PAIN)[id number] SALINE LUISANA PASTOR 05/02/2020 2:04:39 PM > 22 GAUGE INSERTED IN RIGHT AC BY JENNA SMITH RN. SITE CLEAR, FLUSHING WITHOUT DIFFICULTY. ASHLEY DONALD 05/02/2020 3:05:28 PM > SL REMOVED. CATHETER TIP INTACT, BLEEDING CONTROLLED, DSD APPLIED. MEDICATION: VALIUM TAB 10MG ORALLY (DIAZEPAM)ASHLEY DONALD R 05/02/2020 1:41:00 PM > VERIFIED LUISANA HAMPTON 05/02/2020 1:46:21 PM > ADMINISTERED. MEDICATION: OXYCODONE HCL TAB 10MG ORALLYPEASHLEY JENSEN R 05/02/2020 1:41:14 PM > VERIFIED LUISANA HAMPTON 05/02/2020 1:46:52 PM > ADMINISTERED. COMPLETION OF PROCEDURAL VISIT WHEN MEETS CRITERIALUISANA HAMPTON 05/02/2020 3:12:31 PM > CRITERIA MET. OTHERS NOTES: PAT COMPLETED 04/29/20 M DANICA CASTAÑEDA. PROCEDURES PAIN NURSING RECORD PROCEDURE IN ROOM 1428, PHYSICIAN IN ROOM 1437, START 1441, FINISH 1450, PHYSICIAN OUT OF ROOM 1451, OUT OF ROOM 1457, ECG NORMAL SINUS, PATIENT SHIELDED YES, SAFETY STRAP YES, PREP BETADINE BY: Jyoti HAMPTON RN, DRESSING TEGADERM BY: DR. MARCUS LOC: LUISANA HAMPTON 05/02/2020 2:42:57 PM > , 1. ALERT, ORIENTED RESP: LUISANA HAMPTON 05/02/2020 2:43:23 PM > , 1. REGULAR, NO DYSPNEA COLOR: LUISANA HAMPTON 05/02/2020 2:43:29 PM > , 1. PINK SKIN: LUISANA HAMPTON 05/02/2020 2:43:34 PM > , 1. WARM, DRY POSITION: LUISANA HAMPTON [place] 05/02/2020 2:43:38 PM > , 1. PRONE VITALS: LUISANA HAMPTON 05/02/2020 2:33:18 PM > 110/58, 58, 18, 96% CHASEANANTLUISANA Elba 05/02/2020 2:45:31 PM > 107/60, 63, 18, 94% CHASEANANTLUISANA Elba 05/02/2020 2:55:08 PM > 101/55, 60, 16, 94% LUISANA HAMPTON [place] 05/02/2020 3:01:53 PM > 101/59, 75, 16, 95% COMPLETION OF PROCEDURE APPOINTMENT: POST PAIN 4, DRESSING SITE DRY AND INTACT, IV DISCONTINUED, SITE CLEAR, CATHETER INTACT, GAIT STEADY, TEACHING COMPLETED, PATIENT ACKNOWLEDGES UNDERSTANDING YES, PROCEDURE APPOINTMENT COMPLETED AT 1512 BY: Jyoti HAMPTON RN PRE PROCEDURE DIAGNOSIS LUMBAR DISC DISORDER WITH RADICULOPATHY POST PROCEDURE DIAGNOSIS LUMBAR DISC DISORDER WITH RADICULOPATHY PROCEDURE LUMBAR EPIDURAL STEROID INJECTION UNDER FLUOROSCOPIC GUIDANCE SURGEON DR. WILLIE MARCUS FERRY CAPTAIN NONE ANESTHESIA LOCAL PRE PROCEDURE NOTE THE PATIENT HAS A HISTORY OF CHRONIC LOW BACK PAIN. I EVALUATED THE PATIENT AND REVIEWED THE CHART. I WENT OVER THE RISKS, ALTERNATIVES, AND BENEFITS ASSOCIATED WITH THIS PROCEDURE. THE PATIENT WOULD LIKE TO PROCEED AND GIVE CONSENT TO PERFORMED THE PROCEDURE. THE PATIENT DENIES UNEXPLAINABLE WEIGHT LOSS, FEVER, CHILLS, OR NEW CHANGES IN URINARY OR BOWEL CONTROL. THE PATIENT IS COVID-19 NEGATIVE DESCRIPTION OF PROCEDURE THE PATIENT WAS BROUGHT TO THE PROCEDURE ROOM AND PLACED IN THE PRONE POSITION. THE LUMBOSACRAL AREA WAS CLEANED WITH BETADINE SOLUTION AND DRAPED ASEPTICALLY. THE PROCEDURE WAS DONE UNDER STERILE CONDITIONS. A TIMEOUT WAS PERFORMED WHERE THE CONSENTED SITE WAS VERIFIED WITH EVERYONE IN THE ROOM. UNDER FLUOROSCOPIC GUIDANCE, THE TARGET POINT WAS SELECTED AT THE INTERLAMINAR LEVEL OF L5-S1. I CONFIRMED AGAIN THE SITE OF THE TARGET. LIDOCAINE WAS USED TO NUMB THE SKIN AND THE SUBCUTANEOUS TISSUE BELOW IT. EPIDURAL TUOHY NEEDLE, 17-GAUGE, WAS ADVANCED UNDER FLUOROSCOPIC GUIDANCE AND FOLLOWING PATIENT FEEDBACK UNTIL THE EPIDURAL SPACE WAS REACHED 9 CM DEEP INTO THE SKIN BY THE LOSS OF RESISTANCE TECHNIQUE. ISOVUE-M DYE 30%, 0.25 ML, WAS INJECTED SHOWING ADEQUATE SPREAD OF THE DYE. THEN, A SOLUTION OF 3 ML OF NORMAL SALINE WITH DEPO-MEDROL 40 MG WAS INJECTED SLOWLY FOLLOWING PATIENT FEEDBACK. THE MEDICATIONS WERE VERIFIED WITH THE NURSE. THERE WAS NO EVIDENCE OF BLOOD, PARESTHESIA OR CEREBROSPINAL FLUID DURING THE PROCEDURE. THE PATIENT WAS SENT TO THE RECOVERY ROOM. THE PATIENT WAS MOVING THE EXTREMITIES AND DOING WELL. THERE WERE NO COMPLICATIONS DURING THE PROCEDURE. ESTIMATED BLOOD LOSS WAS LESS THAN 5 ML. FLUOROSCOPY TIME WAS 7 SECONDS POST PROCEDURE NOTE THE PATIENT WILL BE SEEN IN A FOLLOW UP IN THE NEXT FEW WEEKS. I AM LOOKING FOR LONG LASTING RELIEF FOR THE PATIENT WITH THIS INTERVENTION. INSTRUCTIONS WERE GIVEN, QUESTIONS WERE ANSWERED, AND THE PATIENT EXPRESSED UNDERSTANDING AND AGREES WITH THE PLAN. I, DONNIE IRENE, DOCUMENTED THE ABOVE INFORMATION ACTING A SCRIBE FOR DR. MARCUS. I HAVE REVIEWED THE ABOVE DOCUMENT, WRITTEN BY DONNIE IRENE, PERSONAL LINES AGENT, AND I VERIFY THAT IT IS ACCURATE PROCEDURE CODES 07717 LUMBAR/SACRAL W/ IMAGING DISPOSITION & COMMUNICATION FOLLOW UP FOLLOW UP WITH FINANCIAL SPECIALIST (REASON: POST LUMBAR EPIDURAL STEROID INJECTION) ELECTRONICALLY SIGNED BY WILLIE MARCUS MD, MD ON 05/03/2020 AT 12:46 PM EST DISCLAIMER : THIS IS A VISIT SUMMARY EXTRACTED FROM THE [employer] CHART. IT IS NOT A COPY OF THE [employer] PROGRESS NOTE. KIRTI
== END ==
LOC: M PAIN 13:30
PROVIDERS: ATTEND Anesthesiology
DX: M51.17 Intervertebral disc disorders with radiculopathy, lumbosacral region (principal); G43.909 Migraine, unspecified, not intractable, without status migrainosus; F17.210 Nicotine dependence, cigarettes, uncomplicated; Z86.59 Personal history of other mental and behavioral disorders; Z88.5 Allergy status to narcotic agent; Z79.899 Other long term (current) drug therapy
CPT/HCPCS: 62323; J1030; Q9967

== ENCOUNTER → 2020-06-07 | Outpatient (CLI) | payer OTHER ==
[~2020-06-07] MED LIST changes: +BUPR150T12; -BUPR150T4; -ISOVUE-M 300 61% 15ML VIAL As Ordered ONE; -LIDOCAINE 1% SDV 30ML VIAL As Ordered ONE; -diazePAM 5MG TABLET As Ordered ONE; -methylPREDNISolone SUSP 40MG/ML 1ML VIAL (DEPO MEDROL) As Ordered ONE; -oxyCODONE 5MG TAB As Ordered ONE
--- NOTE | 2020-06-09 02:42 | ECWPNPC ---
PATIENT NAME: TRISTAN CALDWELL : 1980 GENDER: FEMALE VISIT DATE: 06/07/2020 DISCHARGE DATE: 06/07/20 0000 VISIT LOCKED DATE TIME: PHYSICIAN: NAS ARIAS PHYSICIAN PAGER NO: ACTIVE RESOURCE: NAS ARIAS REASON FOR APPOINTMENT 1. POST LUMBAR EPIDURAL STEROID INJECTION L4-L5 L5-S1 HISTORY OF PRESENT ILLNESS DEPRESSION SCREENING: PHQ-9 LITTLE INTEREST OR PLEASURE IN DOING THINGSNEARLY EVERY DAY FEELING DOWN, DEPRESSED, OR HOPELESSNEARLY EVERY DAY TROUBLE FALLING OR STAYING ASLEEP, OR SLEEPING TOO MUCHNEARLY EVERY DAY FEELING TIRED OR HAVING LITTLE ENERGYNOT AT ALL POOR APPETITE OR OVEREATING NOT AT ALL FEELING BAD ABOUT YOURSELF-OR THAT YOU ARE A FAILURE OR HAVE LET YOURSELF OR YOUR FAMILY DOWN SEVERAL DAYS TROUBLE CONCENTRATING ON THINGS, SUCH READING THE NEWSPAPER OR WATCHING TELEVISION SEVERAL DAYS MOVING OR SPEAKING SO SLOWLY THAT OTHER PEOPLE COULD HAVE NOTICED. OR THE OPPOSITE- BEING SO FIDGETY OR RESTLESS THAT YOU HAVE BEEN MOVING AROUND A LOT MORE THAN USUALMORE THAN HALF THE DAYS THOUGHTS THAT YOU WOULD BE BETTER OFF , OR OF HURTING YOURSELF IN SOME WAY?NOT AT ALL TOTAL SCORE:13 INTERPRETATIONMODERATE DEPRESSION PHQ-2 (2015 EDITION) LITTLE INTEREST OR PLEASURE IN DOING THINGS?NEARLY EVERY DAY FEELING DOWN, DEPRESSED, OR HOPELESS?NEARLY EVERY DAY TOTAL SCORE6 39-YEAR-OLD FEMALE IN FOR POST LUMBAR EPIDURAL STEROID INJECTION FOLLOW-UP. PATIENT FEELS THE PROCEDURE WAS HELPFUL RATES HER PAIN CURRENTLY AT A 6 OUT OF 10. GENERAL: -. FALL RISK SCREENING: SCREENING FALL WITH INJURY. PATIENT DID NOT SEEK MEDICAL TREATMENT.. PAIN SCREENING: PATIENT HAS A COMPLAINT OF ACUTE OR CHRONIC PAIN :YES LOCATION OF PAIN:MID BACK, LOW BACK INTENSITY OF PAIN (SCALE OF 1 TO 10):6 WHAT DOES YOUR PAIN FEEL LIKE:CONTINOUS, SHARP, SHOOTING DURATION:CONTINOUS, CONSTANT, AWAKENS FROM SLEEP PAIN IS INCREASED BY:ACTIVITIES, PROLONGED STANDING PAIN IS DECREASED BY:USE OF PAIN MEDICATIONS, SITTING, OTHERS HEAT NURSING NOTE: -. PAIN CENTER INTAKE QUESTIONS: DO YOU HAVE A HISTORY OF MRSA? :NO DO YOU TAKE A BLOOD THINNERS? :NO DO YOU HAVE ANY BLEEDING DISORDERS? :NO ANY NEW NUMBNESS OR WEAKNESS IN YOUR LEGS OR ARMS? :NO ANY PACEMAKER,DEFIBRILLATOR, OR DORSAL COLUMN STIMULATOR? :NO DO YOU HAVE ANY RASHES OR OPEN SORES? :NO ARE YOU ALLERGIC TO IV DYE? :NO ARE YOU DIABETIC? :NO ANY NEW PROBLEMS WITH YOUR MEDICATIONS? :NO HAVE YOU RECEIVED A VACCINE IN THE PAST 30 DAYS? :NO DO YOU PLAN TO RECEIVE A VACCINE IN THE NEXT 21 DAYS? :NO DO YOU NEED ANY PRESCRIPTION? :NO DO YOU TAKE ANY IMMUNOSUPPRESSIVE MEDICATIONS? :NO DO YOU HAVE ANY KIDNEY OR LIVER DISEASE? :NO IS THERE A CHANCE YOU COULD BE ? :NO ARE YOU BREAST FEEDING? :NO CURRENT MEDICATIONS TAKING BUPROPION HCL 100 MG TABLET 3 TABLETS ORALLY ONCE DAILY TAKING BACLOFEN 5 MG TABLET DIRECTED ORALLY THREE TIMES A DAY TAKING WELLBUTRIN SR 100 MG TABLET EXTENDED RELEASE 12 HOUR 1 TAB ORALLY THREE TIMES DAILY TAKING SKELAXIN 800 MG TABLET 1 TABLET ORALLY THREE TIMES A DAY TAKING PRISTIQ 50 MG TABLET EXTENDED RELEASE 24 HOUR 2 TABLETS ORALLY ONCE A DAY TAKING MOVANTIK 12.5 MG TABLET 1 TABLET IN THE MORNING ORALLY ONCE A DAY TAKING NICODERM CQ 21 MG/24HR PATCH 24 HOUR 1 PATCH TO SKIN TRANSDERMAL ONCE A DAY TAKING POTASSIUM CHLORIDE ER 20 MEQ TABLET EXTENDED RELEASE 1 TABLET WITH FOOD ORALLY ONCE A DAY TAKING ACETAMINOPHEN 500 MG TABLET 1 TABLET NEEDED ORALLY EVERY 6 HRS TAKING CYMBALTA 60 MG CAPSULE DELAYED RELEASE PARTICLES 1 CAPSULE ORALLY BID TAKING REXULTI 3 MG TABLET 1 TABLET ORALLY ONCE A DAY TAKING TRAZODONE HCL 100 MG TABLET 1 TABLET AT BEDTIME ORALLY ONCE A DAY NOT-TAKING DIVALPROEX SODIUM ER 250 MG TABLET EXTENDED RELEASE 24 HOUR 1 TABLET ORALLY ONCE A DAY IN AM NOT-TAKING DIVALPROEX SODIUM ER 500 MG TABLET EXTENDED RELEASE 24 HOUR 1 TABLET ORALLY ONCE A DAY AT HS NOT-TAKING TOPAMAX 50 MG TABLET 1 TABLET ORALLY TWICE DAILY NOT-TAKING DICLOFENAC SODIUM 1.5 % SOLUTION 40 DROPS TO AFFECTED AREA TRANSDERMAL FOUR TIMES A DAY NOT-TAKING MIRTAZAPINE 15 MG TABLET 1 TABLET AT BEDTIME ORALLY ONCE A DAY UNKNOWN CLONIDINE HCL 0.1 MG TABLET 1 TABLET ORALLY ONCE A DAY, NOTES: 05/01/20 AFTERNOON UNKNOWN SUBUTEX 8 MG 1 TAB SUBLINGUALLY TWICE DAILY, NOTES: 05/01/20 AM UNKNOWN IBUPROFEN 800 MG TABLET 1 TABLET WITH FOOD OR MILK NEEDED ORALLY THREE TIMES A DAY UNKNOWN MAY HAVE - - SOFT NEOPRENE SLEEVE BRACE FOR RT. 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 SONG; NOW ON ZUBSOLV LUMBAGO C SCIATICA RT. SIDE NYHA CLASSS1 CHF DEPRESSION PT REPORTS SHE WAS TOLD BY HER PRIMARY DR FONSECA THAT SHE HAD A MILD STROKE WAS SEEN ON A CT SCAN ALLERGIES CODEINE SULFATE: ANAPHYLAXIS - ALLERGY REVIEW OF SYSTEMS CONSTITUTIONAL: ANY RECENT FEVER NO . CHILLS NO . WEIGHT CHANGE OF UNKNOWN REASONS NO . GASTROENTEROLOGY: NEW UNEXPLAINABLE CHANGES IN BOWEL CONTROL NO . CONSTIPATION NO . GENITOURINARY: ANY NEW CHANGE IN BLADDER CONTROL? NO . NEUROLOGY: NEW ONSET DIZZINESS OR NEUROLOGICAL CHANGES NOT MENTIONED NO . NEW NUMBNESS OR PAIN PATTERNS NOT MENTIONED AND PERTINENT TO TODAY'S VISIT NO . CARDIOLOGY: NEW CHEST PRESSURE NO . PATIENT DENIES NO . RESPIRATORY: UNEXPLAINABLE COUGH NO . NEW SHORTNESS OF BREATH NO . VITAL SIGNS WT 216.0 LBS, HT 69 IN, BMI 31.89 INDEX, BP 109/73 MM HG, HR 112 /MIN, RR 18 /MIN, TEMP 98.0 F, OXYGEN SAT % 96%, SAFE IN ENV? (Y/N) YES, NA INITIALS AW 1325, REVIEWED BY: CLAUDIA RUDOLPH MA. EXAMINATION GENERAL EXAMINATION: GENERALNO ACUTE DISTRESS, WELL NOURISHED AND HYDRATED. PSYCHAPPROPRIATE MOOD AND AFFECT . LUNGS:CLEAR TO AUSCULTATION BILATERALLY, NO WHEEZES, RHONCHI, RALES. HEART:NO MURMURS, REGULAR RATE AND RHYTHM. ASSESSMENTS OTHER CHRONIC PAIN - G89.29 (PRIMARY) INTERVERTEBRAL DISC DISORDERS WITH RADICULOPATHY, LUMBOSACRAL REGION - M51.17 TREATMENT OTHER CHRONIC PAIN PAIN PROCEDURE LOGDATE OF PROCEDURE05/02/20PROCEDURE:LUMBAR EPIDURDAL STEROID INJECTIONAMOUNT OF PRE SEDATEVALIUM 10MG, OXYCODONE 10MGRESULT:HELPED NOTES: 31-YEAR-OLD FEMALE IN FOR POST EPIDURAL FOLLOW-UP. GIVEN PRESENTING SYMPTOMS RECOMMEND STARTING TIZANIDINE WITH FOLLOW-UP IN 2 MONTHS TO DETERMINE EFFICACY OF TREATMENT. PATIENT HAS EXPRESSED UNDERSTANDING OF AND WAS IN AGREEMENT WITH TREATMENT PLAN. GIVEN TIME TO ASK QUESTIONS AND EXPRESS CONCERNS. CLINICAL NOTES: 06/07/2020 PROVIDER NOTIFIED OF PHQ9. BEHAVIORAL HEALTH INFORMATION PROVIDED. SCARLET RUDOLPH MA . INTERVERTEBRAL DISC DISORDERS WITH RADICULOPATHY, LUMBOSACRAL REGION STOP SKELAXIN TABLET, 800 MG, 1 TABLET, ORALLY, THREE TIMES A DAY STOP BACLOFEN TABLET, 5 MG, DIRECTED, ORALLY, THREE TIMES A DAY START TIZANIDINE HCL TABLET, 4 MG, 1 TABLET NEEDED, ORALLY, THREE TIMES A DAY PRN, 30 DAY(S), 90 OTHERS NOTES: TIZANIDINE (SP) MATERIAL WAS PRINTED. PROCEDURE CODES FA211 ESTABILISHED PATIENT [facility] CHARGE DISPOSITION & COMMUNICATION FOLLOW UP 2 MONTHS (REASON: BACK PAIN NEW MED ) ELECTRONICALLY SIGNED BY DENY CARPENTER ON 06/08/2020 AT 12:47 PM EST DISCLAIMER : THIS IS A VISIT SUMMARY EXTRACTED FROM THE [employer] CHART. IT IS NOT A COPY OF THE [employer] PROGRESS NOTE. KIRTI
== END ==
LOC: M PAIN 13:15
PROVIDERS: ATTEND Family Medicine
DX: M51.17 Intervertebral disc disorders with radiculopathy, lumbosacral region (principal); G89.29 Other chronic pain; G43.909 Migraine, unspecified, not intractable, without status migrainosus; Z86.59 Personal history of other mental and behavioral disorders; Z79.899 Other long term (current) drug therapy

== ENCOUNTER → 2020-08-18 | Outpatient (CLI) | payer OTHER ==
[~2020-08-18] MED LIST changes: +GABA-283 PO; -GABA-845 PO
--- NOTE | 2020-08-23 03:45 | ECWPNPC ---
PATIENT NAME: TRISTAN CALDWELL : 1980 GENDER: FEMALE VISIT DATE: 08/18/2020 DISCHARGE DATE: 08/18/20 1059 VISIT LOCKED DATE TIME: PHYSICIAN: NAS ARIAS PHYSICIAN PAGER NO: ACTIVE RESOURCE: NAS ARIAS REASON FOR APPOINTMENT 1. BACK HISTORY OF PRESENT ILLNESS GENERAL: HPI 39-YEAR-OLD FEMALE IN FOR CHRONIC PAIN FOLLOW-UP. SHE RATES HER PAIN CURRENTLY AT A 5 OUT OF 10 AND DESCRIBES IT ACHING AND SPASMODIC. PATIENT WAS STARTED ON TIZANIDINE AT LAST CLINIC VISIT AND SHE ADMITS THAT AT THE CURRENT DOSAGE SHE IS UNSURE IF IT IS HELPFUL. PATIENT DID HAVE A LUMBAR EPIDURAL STEROID INJECTION AND STATED THAT SINCE THAT TIME SHE IS ABLE TO WALK FARTHER.. -. FALL RISK SCREENING: SCREENING : NO FALLS REPORTED IN THE LAST YEAR. PAIN SCREENING: PATIENT HAS A COMPLAINT OF ACUTE OR CHRONIC PAIN :YES LOCATION OF PAIN:LOW BACK INTENSITY OF PAIN (SCALE OF 1 TO 10):5 WHAT DOES YOUR PAIN FEEL LIKE:ACHING SPASMS DURATION:CONTINOUS, CONSTANT, AWAKENS FROM SLEEP PAIN IS INCREASED BY:ACTIVITIES, PROLONGED STANDING PAIN IS DECREASED BY:USE OF PAIN MEDICATIONS, SITTING NURSING NOTE: -. PAIN CENTER INTAKE QUESTIONS: DO YOU HAVE A HISTORY OF MRSA? :NO DO YOU TAKE A BLOOD THINNERS? :NO DO YOU HAVE ANY BLEEDING DISORDERS? :NO ANY NEW NUMBNESS OR WEAKNESS IN YOUR LEGS OR ARMS? :NO ANY PACEMAKER,DEFIBRILLATOR, OR DORSAL COLUMN STIMULATOR? :NO DO YOU HAVE ANY RASHES OR OPEN SORES? :NO ARE YOU ALLERGIC TO IV DYE? :NO ARE YOU DIABETIC? :NO ANY NEW PROBLEMS WITH YOUR MEDICATIONS? :NO HAVE YOU RECEIVED A VACCINE IN THE PAST 30 DAYS? :NO DO YOU PLAN TO RECEIVE A VACCINE IN THE NEXT 21 DAYS? :NO DO YOU NEED ANY PRESCRIPTION? :YES GABAPENTIN AND TIZANIDINE DO YOU TAKE ANY IMMUNOSUPPRESSIVE MEDICATIONS? :NO DO YOU HAVE ANY KIDNEY OR LIVER DISEASE? :NO IS THERE A CHANCE YOU COULD BE ? :NO ARE YOU BREAST FEEDING? :NO CURRENT MEDICATIONS TAKING MOVANTIK 12.5 MG TABLET 1 TABLET IN THE MORNING ORALLY ONCE A DAY TAKING POTASSIUM CHLORIDE ER 20 MEQ TABLET EXTENDED RELEASE 1 TABLET WITH FOOD ORALLY ONCE A DAY TAKING REXULTI 3 MG TABLET 1 TABLET ORALLY ONCE A DAY TAKING MUPIROCIN 2 % OINTMENT 1 APPLICATION TO AFFECTED AREA EXTERNALLY THREE TIMES A DAY TAKING TIZANIDINE HCL 4 MG TABLET 1 TABLET NEEDED ORALLY THREE TIMES A DAY PRN TAKING GABAPENTIN 400 MG CAPSULE 1 CAPSULE TAPERING DOSE ORALLY THREE TIMES DAILY TAKING LASIX 40 MG TABLET 1 TABLET ORALLY DAILY TAKING MAY HAVE - - SOFT NEOPRENE SLEEVE BRACE FOR RT. KNEE TOPICALLY WHILE OUT OF BED TAKING DICLOFENAC SODIUM 1.5 % SOLUTION 40 DROPS TO AFFECTED AREA TRANSDERMAL FOUR TIMES A DAY TAKING NICODERM CQ 14 MG/24HR PATCH 24 HOUR 1 PATCH TO SKIN TRANSDERMAL ONCE A DAY TAKING NICOTINE POLACRILEX 2 MG LOZENGE 1 LOZENGE NEEDED MOUTH/THROAT 5 TIME(S) A DAY TAKING REXULTI 1 MG TABLET TAKE ONE TABLET BY MOUTH AT BEDTIME ORAL TAKING ACETAMINOPHEN 500 MG TABLET 1 TABLET NEEDED ORALLY EVERY 6 HRS TAKING TIZANIDINE HCL 4 MG TABLET 1 TABLET NEEDED ORALLY THREE TIMES A DAY TAKING CLONIDINE HCL 0.1 MG TABLET 1 TABLET ORALLY ONCE A DAY TAKING TRAZODONE HCL 100 MG TABLET 1 TABLET AT BEDTIME ORALLY ONCE A DAY TAKING NICOTINE POLACRILEX 2 MG LOZENGE 1 LOZENGE NEEDED MOUTH/THROAT 10 TIME(S) A DAY MEDICATION LIST REVIEWED AND RECONCILED WITH THE PATIENT PAST MEDICAL HISTORY BIPOLAR DISORDER ANXIETY PTSD MIGRAINES GERD DRUG 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 SONG; NOW ON ZUBSOLV LUMBAGO C SCIATICA RT. SIDE NYHA CLASSS1 CHF DEPRESSION PT REPORTS SHE WAS TOLD BY HER PRIMARY DR FONSECA THAT SHE HAD A MILD STROKE WAS SEEN ON A CT SCAN ALLERGIES CODEINE SULFATE: ANAPHYLAXIS - ALLERGY SOCIAL HISTORY GENERAL: TOBACCO USE ARE YOU A:CURRENT SMOKER ARE YOU INTERESTED IN QUITTING?READY TO QUIT TRYING TO QUIT, USING NICOTROL VAPE CARTRIDGES PREVIOUS QUIT ATTEMPTS?YES, WITHIN THE LAST 6 MONTHS. COUNSELED THE PATIENT ON TOBACCO USE, CESSATION [id number]/20/2021 HOW MANY CIGARETTES A DAY DO YOU SMOKE?5 OR LESS HOW SOON AFTER YOU WAKE UP DO YOU SMOKE YOUR FIRST CIGARETTE?AFTER 60 MIN HOW OFTEN DO YOU SMOKE CIGARETTES?EVERY DAY PATIENT COUNSELED ON THE DANGERS OF TOBACCO USE AND URGED TO QUIT:06/03/2019 VAPOR USING NICOTROL VAPE CARTRIDGES LATEX QUESTIONNAIRE LATEX ALLERGY : HAVE YOU EVER DEVELOPED ANY TYPE OF REACTION AFTER HANDLING LATEX PRODUCTS SUCH RUBBER GLOVES, CONDOMS, DIAPHRAGMS, BALLOONS, SOCKS, OR UNDERWEAR?NO LATEX ALLERGY : HAVE YOU EVER DEVELOPED ANY TYPE OF REACTION DURING OR AFTER DENTAL APPOINTMENT, VAGINAL/RECTAL EXAMINATION, SURGICAL PROCEDURE, OR ANY OTHER EXPOSURE?NO DATE ASKED : 09/01/2018 LATEX RISK : HAVE YOU EVER HAD ANY DIFFICULTY BREATHING OR HIVES AFTER EATING OR HANDLING ANY FRUITS, OR VEGETABLES; SUCH KIWI, BANANAS, STONE FRUITS, OR CHESTNUTSNO LATEX RISK : DO YOU HAVE A PREVIOUS PERSONAL HISTORY OF MORE THAN NINE SURGERIES, SPINA BIFIDA, OR REPEATED CATHERIZATIONS? NO LATEX RISK : ARE YOU FREQUENTLY EXPOSED TO LATEX PRODUCTS IN YOUR OCCUPATION?NO ALCOHOL USE: NO. BMI CARE GOAL FOLLOW-UP ABOVE NORMAL BMI FOLLOW-UPDIETARY MANAGEMENT EDUCATION, GUIDANCE, AND COUNSELING, GIVING ENCOURAGEMENT TO EXERCISE, WEIGHT MONITORING ALCOHOL SCREENING DID YOU HAVE A DRINK CONTAINING ALCOHOL IN THE PAST YEAR?NO POINTS0 INTERPRETATIONNEGATIVE RECREATIONAL DRUG USE DRUG USE?NO CAFFEINE CAFFEINE USE?NO SEXUAL HX HAD SEX IN THE LAST 12 MONTHS (VAGINAL, ORAL, OR ANAL)?NO LMP:12/2017 HAVE YOU EVER HAD AN STD?YES OTHER?NO HERPES?NO SYPHILIS?NO GC?NO CHLAMYDIA?YES HIV / HEP-C SCREENING HIV TEST OFFERED TO PATIENT:YES DATE OFFERED:10/07/2018 TEST ACCEPTED:NO HEP-C TEST OFFERED TO PATIENT:YES DATE OFFERED:10/07/2018 REASON:PATIENT DECLINED TEST ACCEPTED:NO REASON:PATIENT DECLINED BROCHURE PROVIDED TO PATIENTYES SPIRITISM SPIRITISM NO SABIANIST BELIEFS THAT WOULD IMPACT HEALTH CARE. LANGUAGE LANGUAGES SPOKEN:ARGENTINE EDUCATION LEVEL OF EDUCATION:NOT FINISHED HIGH SCHOOL LEARNING BARRIERS / SPECIAL NEEDS CHANGE FROM LAST VISIT?NO BARRIERS TO LEARNING?NO MILD LEARNING DISABILITY HEARING IMPAIRED?NO VISION IMPAIRED?YES :CORRECTIVE LENSES COGNITIVELY IMPAIRED?NO PT REPORTS MILD LEARNING DISABILITY READINESS TO LEARN?YES LEARNING PREFERENCES?NO LEARNING CAPABILITIES PRESENT?YES EMOTIONAL BARRIERS?NO SPECIAL DEVICES?YES :CANE CANE ON OCCASION PRODUCTION HAND NEEDED?NO DOMESTIC VIOLENCE DO YOU FEEL SAFE IN YOUR ENVIRONMENT?YES OCCUPATION: UNEMPLOYED. DIET: REGULAR. EXERCISE: NO REGULAR EXERCISE. MARITAL STATUS: . OTHERS AT HOME: ONE SON AT HOME. TODAY'S VISIT NOTES, PATIENT DESCRIBES PAIN : HAVE IT ALL THE TIME, OTHER SPASMS, FROM 0-10, WHAT LEVEL IS YOUR PAIN TODAY? 6. - HAS THE PATIENT BEEN EDUCATED REGARDING HIS/HER PLAN OF CARE?YES HAS THE PATIENT BEEN EDUCATED REGARDING PAIN, THE RISK FOR PAIN, THE IMPORTANCE OF EFFECTIVE PAIN MANAGEMENT, AND THE PAIN ASSESSMENT PROCESS?YES ADVANCE DIRECTIVE ADVANCE DIRECTIVE DISCUSSED WITH PATIENT:YES PT HAS NO ADVANCED DIRECTIVES, INFORMATION AND/OR ASSISTANCE DECLINED AT THIS TIME REVIEW OF SYSTEMS CONSTITUTIONAL: ANY RECENT FEVER NO . CHILLS NO . WEIGHT CHANGE OF UNKNOWN REASONS NO . GASTROENTEROLOGY: NEW UNEXPLAINABLE CHANGES IN BOWEL CONTROL NO . CONSTIPATION NO . GENITOURINARY: ANY NEW CHANGE IN BLADDER CONTROL? NO . NEUROLOGY: NEW ONSET DIZZINESS OR NEUROLOGICAL CHANGES NOT MENTIONED NO . NEW NUMBNESS OR PAIN PATTERNS NOT MENTIONED AND PERTINENT TO TODAY'S VISIT NO . CARDIOLOGY: NEW CHEST PRESSURE NO . PATIENT DENIES NO . RESPIRATORY: UNEXPLAINABLE COUGH NO . NEW SHORTNESS OF BREATH NO . VITAL SIGNS WT 201.8 LBS, HT 69 IN, BMI 29.80 INDEX, BP 123/65 MM HG, HR 96 /MIN, RR 18 /MIN, TEMP 98.0 F, OXYGEN SAT % 95%, SAFE IN ENV? (Y/N) YES, NA INITIALS SC 10:36, REVIEWED BY: CLAUDIA RUDOLPH MA. EXAMINATION GENERAL EXAMINATION: GENERALNO ACUTE DISTRESS, WELL NOURISHED AND HYDRATED. PSYCHAPPROPRIATE MOOD AND AFFECT . LUNGS:CLEAR TO AUSCULTATION BILATERALLY, NO WHEEZES, RHONCHI, RALES. HEART:NO MURMURS, REGULAR RATE AND RHYTHM. ASSESSMENTS INTERVERTEBRAL DISC DISORDERS WITH RADICULOPATHY, LUMBOSACRAL REGION - M51.17 (PRIMARY) TREATMENT INTERVERTEBRAL DISC DISORDERS WITH RADICULOPATHY, LUMBOSACRAL REGION REFILL GABAPENTIN CAPSULE, 400 MG, 1 CAPSULE TAPERING DOSE, ORALLY, THREE TIMES DAILY, 90 DAY(S), 90 CONTINUE TIZANIDINE HCL TABLET, 4 MG, 1.5 TABLET NEEDED, ORALLY, THREE TIMES A DAY, 30 DAY(S), 135 TABLET(S) NOTES: 39-YEAR-OLD FEMALE IN FOR CHRONIC PAIN FOLLOW-UP. GIVEN PRESENTING SYMPTOMS RECOMMENDED INCREASING TIZANIDINE TO 6 MG 3 TIMES A DAY WITH FOLLOW-UP IN 2 MONTHS. PATIENT HAS EXPRESSED UNDERSTANDING OF AND WAS IN AGREEMENT WITH TREATMENT PLAN. GIVEN TIME TO ASK QUESTIONS AND EXPRESS CONCERNS. PROCEDURE CODES FA211 ESTABILISHED PATIENT [facility] FACILITY CHARGE DISPOSITION & COMMUNICATION FOLLOW UP 2 MONTHS (REASON: MED INCREASE ) ELECTRONICALLY SIGNED BY DENY CARPENTER ON 08/22/2020 AT 08:56 AM EDT DISCLAIMER : THIS IS A VISIT SUMMARY EXTRACTED FROM THE [employer] CHART. IT IS NOT A COPY OF THE [employer] PROGRESS NOTE. KIRTI
== END ==
LOC: M PAIN 10:45
PROVIDERS: ATTEND Family Medicine
DX: M51.17 Intervertebral disc disorders with radiculopathy, lumbosacral region (principal); G89.29 Other chronic pain; G43.909 Migraine, unspecified, not intractable, without status migrainosus; F17.210 Nicotine dependence, cigarettes, uncomplicated; Z86.59 Personal history of other mental and behavioral disorders; Z88.5 Allergy status to narcotic agent; Z79.899 Other long term (current) drug therapy

== ENCOUNTER → 2020-10-18 | Outpatient (CLI) | payer OTHER ==
[~2020-10-18] MED LIST changes: +OLAN1TAB16 PO; -OLAN5TAB PO
--- NOTE | 2020-10-20 03:44 | ECWPNPC ---
PATIENT NAME: TRISTAN CALDWELL : 1980 GENDER: FEMALE VISIT DATE: 10/18/2020 DISCHARGE DATE: 10/18/20 1151 VISIT LOCKED DATE TIME: PHYSICIAN: NAS ARIAS PHYSICIAN PAGER NO: ACTIVE RESOURCE: NAS ARIAS REASON FOR APPOINTMENT 1. MED INCREASE HISTORY OF PRESENT ILLNESS GENERAL: HPI 40-YEAR-OLD FEMALE IN FOR CHRONIC PAIN FOLLOW-UP. AT LAST CLINIC VISIT PATIENT'S TIZANIDINE WAS INCREASED AND SHE ADMITS TODAY THAT THIS WAS BENEFICIAL. SHE RATES HER PAIN CURRENTLY AT A 6 OUT OF 10 AND DESCRIBES IT ACHING.. -. FALL RISK SCREENING: SCREENING : ONE FALL REPORTED IN THE LAST YEAR WITH INCREASED PAIN. PAIN SCREENING: PATIENT HAS A COMPLAINT OF ACUTE OR CHRONIC PAIN :YES LOCATION OF PAIN:MID BACK, LOW BACK INTENSITY OF PAIN (SCALE OF 1 TO 10):6 WHAT DOES YOUR PAIN FEEL LIKE:ACHING DURATION:CONTINOUS PAIN IS INCREASED BY:ACTIVITIES PAIN IS DECREASED BY:USE OF PAIN MEDICATIONS NURSING NOTE: -. PAIN CENTER INTAKE QUESTIONS: DO YOU HAVE A HISTORY OF MRSA? :NO DO YOU TAKE A BLOOD THINNERS? :NO DO YOU HAVE ANY BLEEDING DISORDERS? :NO ANY NEW NUMBNESS OR WEAKNESS IN YOUR LEGS OR ARMS? :NO ANY PACEMAKER,DEFIBRILLATOR, OR DORSAL COLUMN STIMULATOR? :NO DO YOU HAVE ANY RASHES OR OPEN SORES? :NO ARE YOU ALLERGIC TO IV DYE? :NO ARE YOU DIABETIC? :NO ANY NEW PROBLEMS WITH YOUR MEDICATIONS? :NO HAVE YOU RECEIVED A VACCINE IN THE PAST 30 DAYS? :NO DO YOU PLAN TO RECEIVE A VACCINE IN THE NEXT 21 DAYS? :NO DO YOU NEED ANY PRESCRIPTION? :YES GABAPENTIN AND TIZANIDINE DO YOU TAKE ANY IMMUNOSUPPRESSIVE MEDICATIONS? :NO DO YOU HAVE ANY KIDNEY OR LIVER DISEASE? :NO IS THERE A CHANCE YOU COULD BE ? :NO ARE YOU BREAST FEEDING? :NO CURRENT MEDICATIONS TAKING MOVANTIK 12.5 MG TABLET 1 TABLET IN THE MORNING ORALLY ONCE A DAY TAKING POTASSIUM CHLORIDE ER 20 MEQ TABLET EXTENDED RELEASE 1 TABLET WITH FOOD ORALLY ONCE A DAY TAKING MUPIROCIN 2 % OINTMENT 1 APPLICATION TO AFFECTED AREA EXTERNALLY THREE TIMES A DAY TAKING TIZANIDINE HCL 4 MG TABLET 1 TABLET NEEDED ORALLY THREE TIMES A DAY PRN TAKING MAY HAVE - - SOFT NEOPRENE SLEEVE BRACE FOR RT. KNEE TOPICALLY WHILE OUT OF BED TAKING DICLOFENAC SODIUM 1.5 % SOLUTION 40 DROPS TO AFFECTED AREA TRANSDERMAL FOUR TIMES A DAY TAKING NICODERM CQ 14 MG/24HR PATCH 24 HOUR 1 PATCH TO SKIN TRANSDERMAL ONCE A DAY TAKING NICOTINE POLACRILEX 2 MG LOZENGE 1 LOZENGE NEEDED MOUTH/THROAT 5 TIME(S) A DAY TAKING REXULTI 2 MG TABLET TAKE ONE TABLET BY MOUTH AT BEDTIME ORALLY TAKING ACETAMINOPHEN 500 MG TABLET 1 TABLET NEEDED ORALLY EVERY 6 HRS TAKING CLONIDINE HCL 0.1 MG TABLET 1 TABLET ORALLY ONCE A DAY TAKING TRAZODONE HCL 100 MG TABLET 1 TABLET AT BEDTIME ORALLY ONCE A DAY TAKING GABAPENTIN 400 MG CAPSULE 1 CAPSULE TAPERING DOSE ORALLY THREE TIMES DAILY TAKING TIZANIDINE HCL 4 MG TABLET 1.5 TABLET NEEDED ORALLY THREE TIMES A DAY TAKING LASIX 40 MG TABLET 1 TABLET ORALLY DAILY NOT-TAKING REXULTI 3 MG TABLET 1 TABLET ORALLY ONCE A DAY NOT-TAKING NICOTINE POLACRILEX 2 MG LOZENGE 1 LOZENGE NEEDED MOUTH/THROAT 10 TIME(S) A DAY MEDICATION LIST REVIEWED AND RECONCILED WITH THE PATIENT PAST MEDICAL HISTORY BIPOLAR DISORDER ANXIETY PTSD MIGRAINES GERD DRUG 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 SONG; NOW ON ZUBSOLV LUMBAGO C SCIATICA RT. SIDE NYHA CLASSS1 CHF DEPRESSION PT REPORTS SHE WAS TOLD BY HER PRIMARY DR FONSECA THAT SHE HAD A MILD STROKE WAS SEEN ON A CT SCAN ALLERGIES CODEINE SULFATE: ANAPHYLAXIS - ALLERGY SOCIAL HISTORY GENERAL: TOBACCO USE ARE YOU A:CURRENT SMOKER HOW OFTEN DO YOU SMOKE CIGARETTES?EVERY DAY HOW SOON AFTER YOU WAKE UP DO YOU SMOKE YOUR FIRST CIGARETTE?AFTER 60 MIN HOW MANY CIGARETTES A DAY DO YOU SMOKE?5 OR LESS ARE YOU INTERESTED IN QUITTING?READY TO QUIT TRYING TO QUIT, USING NICOTROL VAPE CARTRIDGES PATIENT COUNSELED ON THE DANGERS OF TOBACCO USE AND URGED TO QUIT:06/03/2019 COUNSELED THE PATIENT ON TOBACCO USE, CESSATION [id number]/20/2021 VAPOR USING NICOTROL VAPE CARTRIDGES PREVIOUS QUIT ATTEMPTS?YES, WITHIN THE LAST 6 MONTHS. LATEX QUESTIONNAIRE LATEX ALLERGY : HAVE YOU EVER DEVELOPED ANY TYPE OF REACTION AFTER HANDLING LATEX PRODUCTS SUCH RUBBER GLOVES, CONDOMS, DIAPHRAGMS, BALLOONS, SOCKS, OR UNDERWEAR?NO LATEX ALLERGY : HAVE YOU EVER DEVELOPED ANY TYPE OF REACTION DURING OR AFTER DENTAL APPOINTMENT, VAGINAL/RECTAL EXAMINATION, SURGICAL PROCEDURE, OR ANY OTHER EXPOSURE?NO DATE ASKED : 09/01/2018 LATEX RISK : HAVE YOU EVER HAD ANY DIFFICULTY BREATHING OR HIVES AFTER EATING OR HANDLING ANY FRUITS, OR VEGETABLES; SUCH KIWI, BANANAS, STONE FRUITS, OR CHESTNUTSNO LATEX RISK : DO YOU HAVE A PREVIOUS PERSONAL HISTORY OF MORE THAN NINE SURGERIES, SPINA BIFIDA, OR REPEATED CATHERIZATIONS? NO LATEX RISK : ARE YOU FREQUENTLY EXPOSED TO LATEX PRODUCTS IN YOUR OCCUPATION?NO ALCOHOL USE: NO. BMI CARE GOAL FOLLOW-UP ABOVE NORMAL BMI FOLLOW-UPDIETARY MANAGEMENT EDUCATION, GUIDANCE, AND COUNSELING, GIVING ENCOURAGEMENT TO EXERCISE, WEIGHT MONITORING ALCOHOL SCREENING DID YOU HAVE A DRINK CONTAINING ALCOHOL IN THE PAST YEAR?NO POINTS0 INTERPRETATIONNEGATIVE RECREATIONAL DRUG USE DRUG USE?NO CAFFEINE CAFFEINE USE?NO SEXUAL HX HAD SEX IN THE LAST 12 MONTHS (VAGINAL, ORAL, OR ANAL)?NO LMP:12/2017 HAVE YOU EVER HAD AN STD?YES OTHER?NO HERPES?NO SYPHILIS?NO GC?NO CHLAMYDIA?YES HIV / HEP-C SCREENING HIV TEST OFFERED TO PATIENT:YES DATE OFFERED:10/07/2018 TEST ACCEPTED:NO HEP-C TEST OFFERED TO PATIENT:YES DATE OFFERED:10/07/2018 REASON:PATIENT DECLINED TEST ACCEPTED:NO REASON:PATIENT DECLINED BROCHURE PROVIDED TO PATIENTYES TAOISM TAOISM NO HOLINESS BELIEFS THAT WOULD IMPACT HEALTH CARE. LANGUAGE LANGUAGES SPOKEN:BENGALI EDUCATION LEVEL OF EDUCATION:NOT FINISHED HIGH SCHOOL LEARNING BARRIERS / SPECIAL NEEDS CHANGE FROM LAST VISIT?NO BARRIERS TO LEARNING?NO MILD LEARNING DISABILITY HEARING IMPAIRED?NO VISION IMPAIRED?YES COGNITIVELY IMPAIRED?NO PT REPORTS MILD LEARNING DISABILITY :CORRECTIVE LENSES READINESS TO LEARN?YES LEARNING PREFERENCES?NO LEARNING CAPABILITIES PRESENT?YES EMOTIONAL BARRIERS?NO SPECIAL DEVICES?YES :CANE CANE ON OCCASION CHANNEL SALES MANAGER NEEDED?NO DOMESTIC VIOLENCE DO YOU FEEL SAFE IN YOUR ENVIRONMENT?YES OCCUPATION: UNEMPLOYED. DIET: REGULAR. EXERCISE: NO REGULAR EXERCISE. MARITAL STATUS: . OTHERS AT HOME: ONE SON AT HOME. TODAY'S VISIT NOTES, PATIENT DESCRIBES PAIN : HAVE IT ALL THE TIME, OTHER SPASMS, FROM 0-10, WHAT LEVEL IS YOUR PAIN TODAY? 6. - HAS THE PATIENT BEEN EDUCATED REGARDING HIS/HER PLAN OF CARE?YES HAS THE PATIENT BEEN EDUCATED REGARDING PAIN, THE RISK FOR PAIN, THE IMPORTANCE OF EFFECTIVE PAIN MANAGEMENT, AND THE PAIN ASSESSMENT PROCESS?YES ADVANCE DIRECTIVE ADVANCE DIRECTIVE DISCUSSED WITH PATIENT:YES PT HAS NO ADVANCED DIRECTIVES, INFORMATION AND/OR ASSISTANCE DECLINED AT THIS TIME REVIEW OF SYSTEMS CONSTITUTIONAL: ANY RECENT FEVER NO . CHILLS NO . WEIGHT CHANGE OF UNKNOWN REASONS NO . GASTROENTEROLOGY: NEW UNEXPLAINABLE CHANGES IN BOWEL CONTROL NO . CONSTIPATION NO . GENITOURINARY: ANY NEW CHANGE IN BLADDER CONTROL? NO . NEUROLOGY: NEW ONSET DIZZINESS OR NEUROLOGICAL CHANGES NOT MENTIONED NO . NEW NUMBNESS OR PAIN PATTERNS NOT MENTIONED AND PERTINENT TO TODAY'S VISIT NO . CARDIOLOGY: NEW CHEST PRESSURE NO . PATIENT DENIES NO . RESPIRATORY: UNEXPLAINABLE COUGH NO . NEW SHORTNESS OF BREATH NO . VITAL SIGNS WT 199.8 LBS, HT 69 IN, BMI 29.50 INDEX, BP 117/58 MM HG, HR 100 /MIN, RR 18 /MIN, TEMP 96.4 F, OXYGEN SAT % 97%, SAFE IN ENV? (Y/N) Y, NA INITIALS WV 11:28, REVIEWED BY: TI. EXAMINATION GENERAL EXAMINATION: GENERALNO ACUTE DISTRESS, WELL NOURISHED AND HYDRATED. PSYCHAPPROPRIATE MOOD AND AFFECT . LUNGS:CLEAR TO AUSCULTATION BILATERALLY, NO WHEEZES, RHONCHI, RALES. HEART:NO MURMURS, REGULAR RATE AND RHYTHM. ASSESSMENTS LUMBAGO WITH SCIATICA, RIGHT SIDE - M54.41 (PRIMARY) INTERVERTEBRAL DISC DISORDERS WITH RADICULOPATHY, LUMBOSACRAL REGION - M51.17 TREATMENT LUMBAGO WITH SCIATICA, RIGHT SIDE INCREASE GABAPENTIN TABLET, 600 MG, 1 CAPSULE TAPERING DOSE, ORALLY, THREE TIMES DAILY, 90 DAY(S), 270, REFILLS 1 NOTES: 40-YEAR-OLD FEMALE IN FOR CHRONIC PAIN FOLLOW-UP. GIVEN PRESENTING SYMPTOMS RECOMMEND INCREASING GABAPENTIN TO 600 MG 3 TIMES DAILY WITH FOLLOW-UP IN 2 MONTHS TO DETERMINE EFFICACY OF TREATMENT. PATIENT HAS EXPRESSED UNDERSTANDING OF AND WAS IN AGREEMENT WITH TREATMENT PLAN. GIVEN TIME TO ASK QUESTIONS AND EXPRESS CONCERNS. INTERVERTEBRAL DISC DISORDERS WITH RADICULOPATHY, LUMBOSACRAL REGION REFILL TIZANIDINE HCL TABLET, 4 MG, 1 TABLET NEEDED, ORALLY, THREE TIMES A DAY PRN, 30 DAYS, 90, REFILLS 2 PROCEDURE CODES FA211 ESTABILISHED PATIENT [facility] CHARGE DISPOSITION & COMMUNICATION FOLLOW UP 2 MONTHS (REASON: MED INCREASE) ELECTRONICALLY SIGNED BY DENY CARPENTER ON 10/19/2020 AT 09:03 AM EDT DISCLAIMER : THIS IS A VISIT SUMMARY EXTRACTED FROM THE [employer] CHART. IT IS NOT A COPY OF THE [employer] PROGRESS NOTE. KIRTI
== END ==
LOC: M PAIN 11:00
PROVIDERS: ATTEND Family Medicine
DX: M54.41 Lumbago with sciatica, right side (principal); G89.29 Other chronic pain; G43.909 Migraine, unspecified, not intractable, without status migrainosus; F17.210 Nicotine dependence, cigarettes, uncomplicated; Z86.59 Personal history of other mental and behavioral disorders; Z88.5 Allergy status to narcotic agent; Z79.899 Other long term (current) drug therapy

== ENCOUNTER → 2020-12-16 | Outpatient (CLI) | payer OTHER ==
[2020-12-16 13:10] LABS: BASO # 0.1 10^3/uL (0.0-0.2); BASO % 0.4 % (0.0-1.0); EOS # 0.2 10^3/uL (0.0-0.5); EOS % 1.8 % (0.0-3.0); HEMATOCRIT 48.1 % (36.0-47.0); HEMOGLOBIN 15.8 g/dl (12.0-15.5); LYMPH # 3.1 10^3/uL (1.5-5.0); MEAN CORPUSCULAR HEMOGLOBIN 30.8 pg (27.0-33.0); MEAN CORPUSCULAR HGB CONC 32.8 g/dl (32.0-36.5); MEAN CORPUSCULAR VOLUME 93.8 fl (80.0-96.0); MONO # 0.7 10^3/uL (0.0-0.8); MONO % 5.1 % (2.0-8.0); NEUTROPHILS # 9.3 10^3/uL (1.5-8.5); NEUTROPHILS % 69.2 % (36.0-66.0); PLATELET COUNT, AUTOMATED 216 10^3/uL (150-450); RED BLOOD COUNT 5.13 10^6/uL (4.00-5.40); WHITE BLOOD COUNT 13.5 10^3/uL (4.0-10.0)
[2020-12-16 13:42] LABS: ALBUMIN 3.4 GM/DL (3.2-5.2); ALT/SGPT 12 U/L (12-78); BILIRUBIN,TOTAL 0.2 MG/DL (0.2-1.0); BLOOD UREA NITROGEN 10 MG/DL (7-18); CALCIUM LEVEL 8.4 MG/DL (8.5-10.1); CARBON DIOXIDE LEVEL 30 MEQ/L (21-32); CHLORIDE LEVEL 108 MEQ/L (98-107); CHOLESTEROL LEVEL 195 MG/DL (<200); CHOLESTEROL RISK RATIO 6.093 (<5); CREATININE FOR GFR 0.76 MG/DL (0.55-1.30); FREE T4 0.89 NG/DL (0.76-1.46); GLOMERULAR FILTRATION RATE > 60.0 (>60); GLUCOSE, FASTING 86 MG/DL (70-100); HDL CHOLESTEROL 32 MG/DL (>40); LDL CHOLESTEROL 106 MG/DL (<100); NON-HDL-C 163 MG/DL; POTASSIUM SERUM 4.2 MEQ/L (3.5-5.1); SODIUM LEVEL 143 MEQ/L (136-145); TOTAL PROTEIN 6.7 GM/DL (6.4-8.2); TRIGLYCERIDES LEVEL 287 MG/DL (<150)
[2020-12-16 13:44] LABS: VITAMIN B12 LEVEL 351 PG/ML (247-911)
[2020-12-16 14:42] LABS: HEMOGLOBIN A1c 5.4 %
== END ==
LOC: M PLALAB 10:44
PROVIDERS: ATTEND Physician Assistant Medical
DX: F32.9 Major depressive disorder, single episode, unspecified (principal); E66.3 Overweight; Z72.0 Tobacco use; F51.01 Primary insomnia; Z13.220 Encounter for screening for lipoid disorders

== ENCOUNTER → 2020-12-24 | Outpatient (CLI) | payer OTHER | LOC: M LABSMTC 11:52 | PROVIDERS: ATTEND Pediatrics | DX: Z20.822 Contact with and (suspected) exposure to COVID-19 (principal) ==

== ENCOUNTER 2020-12-30 13:22 | Outpatient (CLI) | payer OTHER ==
[~2020-12-30 13:22] MED LIST changes: +ALBUTEROL SULFATE 2.5 MG/0.5 ML INH NEB SOLN INH PRN; +EPINEPHrine INJ 1 MG/ML 1ML AMP IM PRN; +NS 1,000 ML IV SCH; +diphenhydrAMINE 50MG/ML VIAL (J1200) IV PRN; +methylPREDNISolone 125MG 2ML VIAL IV PRN
[2020-12-30] MEDS ORDERED: CASIRIVIMAB/IMDEVIMAB 1,200 MG in NS 250 ML IV ONE (14:00)
[2020-12-30] MEDS ORDERED: ACETAMINOPHEN TAB 650MG DOSE (2X325MG) PO ONE (14:00)
[2020-12-30] MEDS ORDERED: diphenhydrAMINE 25MG CAP PO ONE (14:00)
[2020-12-30 14:30] VITALS: BP 95/54
[2020-12-30 14:51] VITALS: BP 91/57
[2020-12-30 15:19] VITALS: BP 95/52
[2020-12-30 16:00] VITALS: BP 85/47
[2020-12-30 17:11] VITALS: BP 89/51
== END 2020-12-30 17:30 | disposition home or self-care (01) ==
LOC: M OPCLI4 13:22 → M 4MAIN 14:05 → M OPCLI4 17:30
PROVIDERS: ATTEND Physician Assistant Medical
DX: U07.1 COVID-19 (principal); Z88.6 Allergy status to analgesic agent

== ENCOUNTER → 2021-01-26 | Outpatient (CLI) | payer OTHER ==
[~2021-01-26] MED LIST changes: -ALBUTEROL SULFATE 2.5 MG/0.5 ML INH NEB SOLN INH PRN; -EPINEPHrine INJ 1 MG/ML 1ML AMP IM PRN; -NS 1,000 ML IV SCH; -diphenhydrAMINE 50MG/ML VIAL (J1200) IV PRN; -methylPREDNISolone 125MG 2ML VIAL IV PRN
--- NOTE | 2021-01-26 10:23 | REP ---
INDICATION: AAA COMPARISON: None. TECHNIQUE: Multiple ultrasonographic images of the abdominal aorta were obtained from the level of the celiac access to the aortoiliac bifurcation and the longitudinal and transverse scan planes along with color Doppler imaging. FINDINGS: The maximal AP dimension of the abdominal aorta as measured in the longitudinal scan plane is 2 cm. There is no common iliac arterial ectasia. IMPRESSION: No evidence of abdominal aortic aneurysm. <Electronically signed by Ant Samuels > 01/26/21 1019
== END ==
LOC: M RAD 08:01
PROVIDERS: ATTEND Physician Assistant Medical
DX: Z13.6 Encounter for screening for cardiovascular disorders (principal)

== ENCOUNTER → 2021-02-14 | Outpatient (CLI) | payer OTHER | LOC: M PAIN 11:45 | PROVIDERS: ATTEND Anesthesiology | DX: M79.10 Myalgia, unspecified site (principal); G43.909 Migraine, unspecified, not intractable, without status migrainosus; K21.9 Gastro-esophageal reflux disease without esophagitis; F17.210 Nicotine dependence, cigarettes, uncomplicated; Z86.59 Personal history of other mental and behavioral disorders; Z88.5 Allergy status to narcotic agent; Z79.899 Other long term (current) drug therapy ==

== ENCOUNTER → 2021-03-30 | Outpatient (CLI) | payer OTHER | LOC: M LABSMTC 10:48 | PROVIDERS: ATTEND Anesthesiology | DX: Z20.822 Contact with and (suspected) exposure to COVID-19 (principal) ==

== ENCOUNTER → 2021-05-08 | Outpatient (CLI) | payer OTHER | LOC: M PLAIMG 13:06 | PROVIDERS: ATTEND Physician Assistant Medical | DX: U09.9 Post COVID-19 condition, unspecified (principal) ==

== ENCOUNTER → 2021-10-29 | Outpatient (CLI) | payer OTHER ==
[~2021-10-29] MED LIST changes: -TRIA37.53 PO; +TRIA37.577 PO
== END ==
LOC: M LABSMTC 10:31
PROVIDERS: ATTEND Anesthesiology
DX: Z01.812 Encounter for preprocedural laboratory examination (principal); Z20.822 Contact with and (suspected) exposure to COVID-19

== ENCOUNTER → 2021-11-30 | Outpatient (REF) | payer OTHER | LOC: M LAB REF 09:07 | PROVIDERS: ATTEND Physician Assistant | DX: R30.0 Dysuria (principal) ==

== ENCOUNTER → 2021-12-05 | Outpatient (REF) | payer OTHER ==
[2021-12-05 17:24] LABS: CHOLESTEROL LEVEL 193 MG/DL (<200); CHOLESTEROL RISK RATIO 4.948 (<5); FREE T4 0.92 NG/DL (0.76-1.46); HDL CHOLESTEROL 39 MG/DL (>40); NON-HDL-C 154 MG/DL; TRIGLYCERIDES LEVEL 424 MG/DL (<150)
[2021-12-05 19:14] LABS: HEMOGLOBIN A1c 5.7 %
== END ==
LOC: M LABWUC 16:07
PROVIDERS: ATTEND Physician Assistant Medical
DX: R63.5 Abnormal weight gain (principal); Z13.220 Encounter for screening for lipoid disorders

== ENCOUNTER → 2022-03-07 | Outpatient (REF) | payer OTHER ==
[2022-03-07 18:49] LABS: APPEARANCE, URINE MANUAL CLEAR (CLEAR); COLOR, URINE MANUAL YELLOW (YELLOW)
[2022-03-07 18:50] LABS: BILIRUBIN, URINE MANUAL NEGATIVE (NEGATIVE); BLOOD URINE MANUAL NEGATIVE (NEGATIVE); GLUCOSE, URINE (UA) MANUAL NEGATIVE (NEGATIVE); KETONE, URINE MANUAL NEGATIVE (NEGATIVE); LEUKOCYTE ESTERASE, URINE MAN TRACE (NEGATIVE); NITRITE, URINE MANUAL NEGATIVE (NEGATIVE); PROTEIN, URINE MANUAL NEGATIVE (NEGATIVE); SPECIFIC GRAVITY,URINE MANUAL 1.015 (1.002-1.035); UROBILINOGEN, URINE MANUAL NORMAL (NORMAL)
[2022-03-07 19:04] LABS: AMORPHOUS SEDIMENT, URINE SMALL AMOUNT (NEGATIVE); BACTERIA, URINE NONE SEEN; HYALINE CAST, URINE NONE SEEN /lpf (0-1); SQUAMOUS EPITHELIAL CELL URINE MOD AMOUNT /hpf (SMALL AMT)
== END ==
LOC: M SFHCPLAZ 17:12
PROVIDERS: ATTEND Physician Assistant Medical
DX: R30.0 Dysuria (principal)

== ENCOUNTER → 2022-06-13 | Outpatient (CLI) | payer OTHER ==
[~2022-06-13] MED LIST changes: +TOPI-254 PO; -TOPI50TA9 PO
== END ==
LOC: M CARPUL 13:05
PROVIDERS: ATTEND Physician Assistant Medical
DX: R06.02 Shortness of breath (principal)

== ENCOUNTER → 2022-07-02 | Outpatient (CLI) | payer OTHER ==
[~2022-07-02] MED LIST changes: +METHACHOLINE KIT INH ONE
== END ==
LOC: M CARPUL 13:37
PROVIDERS: ATTEND Physician Assistant Medical
DX: R06.02 Shortness of breath (principal)
CPT/HCPCS: 94070; 95070; J7674

== ENCOUNTER → 2022-08-24 | Outpatient (CLI) | payer OTHER ==
[~2022-08-24] MED LIST changes: -METHACHOLINE KIT INH ONE; +POTA-298; -POTA1TAB14
== END ==
LOC: M PLAIMG 15:01
PROVIDERS: ATTEND Physician Assistant Medical
DX: M25.461 Effusion, right knee (principal)

== ENCOUNTER → 2022-08-24 | Outpatient (CLI) | payer OTHER | LOC: M WHC 14:31 | PROVIDERS: ATTEND Physician Assistant Medical | DX: Z12.31 Encounter for screening mammogram for malignant neoplasm of breast (principal) ==

== ENCOUNTER → 2022-08-30 | Outpatient (REF) | payer OTHER | LOC: M SFHCPLAZ 17:08 | PROVIDERS: ATTEND Physician Assistant Medical | DX: Z53.9 Procedure and treatment not carried out, unspecified reason (principal) ==

== ENCOUNTER → 2022-11-02 | Outpatient (CLI) | payer OTHER ==
[~2022-11-02] MED LIST changes: -GABA-283 PO; +GABA-284 PO
== END ==
LOC: M WUC 15:19
PROVIDERS: ATTEND Physician Assistant Medical
DX: M25.461 Effusion, right knee (principal)

== ENCOUNTER → 2023-01-30 | Outpatient (REF) | payer OTHER ==
[~2023-01-30] MED LIST changes: -MIRT-62 PO; +MIRT-88 PO
[2023-01-30 21:40] LABS: APPEARANCE, URINE CLOUDY (CLEAR); BACTERIA, URINE AUTO NEGATIVE (NEGATIVE); BILIRUBIN, URINE AUTO NEGATIVE (NEGATIVE); BLOOD, URINE BLOOD NEGATIVE (NEGATIVE); COLOR, URINE AMBER (YELLOW); GLUCOSE, URINE (UA) AUTO NEGATIVE (NEGATIVE); KETONE, URINE AUTO TRACE mg/dL (NEGATIVE); LEUKOCYTE ESTERASE, URINE AUTO TRACE (NEGATIVE); MUCUS, URINE SMALL (NEGATIVE); NITRITE, URINE AUTO NEGATIVE (NEGATIVE); PROTEIN, URINE AUTO 1+ mg/dL (NEGATIVE); RBC, URINE AUTO 6 /HPF (0-3); SPECIFIC GRAVITY URINE AUTO 1.028 (1.002-1.035); SQUAMOUS EPITHELIAL CELL UR AU 35 /HPF (0-6); WBC, URINE AUTO 2 /HPF (0-3)
== END ==
LOC: M LAB REF 21:15
PROVIDERS: ATTEND Physician Assistant
DX: N39.0 Urinary tract infection, site not specified (principal)

== ENCOUNTER → 2023-02-06 | Outpatient (CLI) | payer OTHER | LOC: M PLAIMG 13:31 | PROVIDERS: ATTEND Physician Assistant Medical | DX: M25.462 Effusion, left knee (principal) ==

== ENCOUNTER → 2023-04-03 | Outpatient (CLI) | payer OTHER ==
[~2023-04-03] MED LIST changes: -EFFE150C2 PO; +EFFE150C3 PO; +TOPI-21 PO; -TOPI-254 PO
[2023-04-03 17:17] LABS: BASO # 0.1 10^3/uL (0.0-0.2); EOS # 0.3 10^3/uL (0.0-0.5); EOS % 4.6 % (0.0-3.0); HEMOGLOBIN 14.8 g/dl (12.0-15.5); LYMPH # 2.5 10^3/uL (1.5-5.0); LYMPH % 35.7 % (24.0-44.0); MEAN CORPUSCULAR HGB CONC 31.5 g/dl (32.0-36.5); MEAN CORPUSCULAR VOLUME 95.1 fl (80.0-96.0); MONO # 0.6 10^3/uL (0.0-0.8); MONO % 8.5 % (2.0-8.0); NEUTROPHILS # 3.5 10^3/uL (1.5-8.5); NEUTROPHILS % 50.1 % (36.0-66.0); PLATELET COUNT, AUTOMATED 293 10^3/uL (150-450); RED BLOOD COUNT 4.94 10^6/uL (4.00-5.40); WHITE BLOOD COUNT 6.9 10^3/uL (4.0-10.0)
[2023-04-03 17:22] LABS: ERYTHROCYTE SEDIMENTATION RATE 16 mm/hr (0-20)
[2023-04-03 17:29] LABS: HEMOGLOBIN A1c 5.6 % (4.0-6.0)
[2023-04-03 19:19] LABS: C REACTIVE PROTEIN QUANTITATIV < 0.40 MG/DL (<1.0)
[2023-04-03 19:20] LABS: RHEUMATOID FACTOR QUANT < 3.5 IU/ML (<14)
[2023-04-03 19:21] LABS: ALBUMIN 3.8 G/DL (3.2-5.2); ALKALINE PHOSPHATASE 85 U/L (46-116); ALT/SGPT 13 U/L (7.0-40); AST/SGOT 14 U/L (<34); BILIRUBIN,TOTAL 0.2 MG/DL (0.3-1.2); BLOOD UREA NITROGEN 10 MG/DL (9-23); CALCIUM LEVEL 8.8 MG/DL (8.5-10.1); CARBON DIOXIDE LEVEL 34 MMOL/L (20-31); CHLORIDE LEVEL 105 MMOL/L (98-107); CHOLESTEROL LEVEL 188 MG/DL (<200); CREATININE FOR GFR 0.71 MG/DL (0.55-1.30); GLOMERULAR FILTRATION RATE > 60.0 (>58); GLUCOSE, FASTING 92 MG/DL (60-100); HDL CHOLESTEROL 37.6 MG/DL (>40); LDL CHOLESTEROL 74.8 MG/DL (<100); NON-HDL-C 150.4 MG/DL; POTASSIUM SERUM 3.5 MMOL/L (3.5-5.1); SODIUM LEVEL 140 MMOL/L (136-145); TOTAL PROTEIN 6.7 G/DL (5.7-8.2); TRIGLYCERIDES LEVEL 378 MG/DL (<150)
[2023-04-05 23:16] LABS: ANA (HEP2) Negative (.); CYCLIC CITRULLINATED PEPTIDE 6 units (0-19); IgG P18 AB Absent (.); IgG P23 AB Absent (.); IgG P28 AB Absent (.); IgG P30 AB Absent (.); IgG P39 AB Absent (.); IgG P41 AB Present (.); IgG P45 AB Absent (.); IgG P66 AB Absent (.); IgG P93 AB Absent (.); IgM P23 AB Present (.); IgM P39 AB Absent (.); IgM P41 AB Absent (.); LYME IgG WB INTERPRETATION Negative (.); LYME IgM WB INTERPRETATION Negative (.)
== END ==
LOC: M WUC 10:53
PROVIDERS: ATTEND Physician Assistant Medical
DX: M25.541 Pain in joints of right hand (principal); E66.09 Other obesity due to excess calories; Z13.220 Encounter for screening for lipoid disorders; K21.9 Gastro-esophageal reflux disease without esophagitis; Z86.69 Personal history of other diseases of the nervous system and sense organs

== ENCOUNTER 2025-01-13 18:43 | Emergency (ER) | payer OTHER ==
[~2025-01-13] VITALS: Ht 175.3 cm; Wt 99.7 kg
[~2025-01-13 18:43] MED LIST changes: +BUPR-670 PO; -BUPR1TAB52 PO; +DIVA-41 PO; -DIVA500T94 PO; +FLUO-365 PO; -FLUO20CA22 PO; +GABA-1172; +GABA-1172 PO; -GABA-282; -GABA-282 PO; -IBUP-1022 PO; +IBUP600T42 PO; +META-10; -META1TAB22; +ZOLP10TA11; -ZOLP10TA2
[2025-01-13 18:47] VITALS: BP 139/69; TEMP 99.9; O2SAT 96
[2025-01-13] MEDS ORDERED: LUMA42CA4 (18:54)
[2025-01-13] MEDS ORDERED: SUMA100T2 (18:54)
[2025-01-13] MEDS ORDERED: PARO20TA3 (18:54)
[2025-01-13] MEDS ORDERED: VYVA40CA3 (18:54)
[2025-01-13 19:53] LABS: BASO # 0.1 10^3/uL (0.0-0.2); BASO % 0.6 % (0.0-1.0); EOS # 0.3 10^3/uL (0.0-0.5); EOS % 3.7 % (0.0-3.0); LYMPH # 2.6 10^3/uL (1.5-5.0); LYMPH % 31.7 % (24.0-44.0); MONO # 0.6 10^3/uL (0.0-0.8); MONO % 7.7 % (2.0-8.0); NEUTROPHILS # 4.5 10^3/uL (1.5-8.5); NEUTROPHILS % 55.9 % (36.0-66.0); PLATELET COUNT, AUTOMATED 266 10^3/uL (150-450)
[2025-01-13 20:22] LABS: CK-MB VALUE MASS 2.9 NG/ML (<3.6)
[2025-01-13 20:25] LABS: ALT/SGPT 11 U/L (7.0-40); AST/SGOT 16 U/L (<34); CALCIUM LEVEL 8.9 MG/DL (8.5-10.1); CARBON DIOXIDE LEVEL 28 MMOL/L (20-31); CHLORIDE LEVEL 106 MMOL/L (98-107); CREATININE FOR GFR 0.74 MG/DL (0.55-1.30); GLOMERULAR FILTRATION RATE > 90.0 (>58); MAGNESIUM LEVEL 2.0 MG/DL (1.8-2.4); POTASSIUM SERUM 4.0 MMOL/L (3.5-5.1); SODIUM LEVEL 143 MMOL/L (136-145)
[2025-01-13 20:27] LABS: CPK CREATINE PHOSPHOKINASE 96 U/L (34-145); MB/CK RELATIVE INDEX 3.02 (< OR =4)
== END 2025-01-13 23:27 | disposition left against medical advice (07) ==
LOC: M ED 18:43
DX: Z53.21 Procedure and treatment not carried out due to patient leaving prior to being seen by health care provider (principal)